=== PATIENT | female | born 1950 | race Caucasian/White ===

== ENCOUNTER → 2018-06-27 14:15 | Outpatient (CLI) | payer MEDICARE, OTHER, SELFPAY | PROVIDERS: Family Provider Internal Medicine; PCP Internal Medicine; Visit Provider Internal Medicine | DX: M81.0 Age-related osteoporosis without current pathological fracture (principal); Z78.0 Asymptomatic menopausal state; Z90.722 Acquired absence of ovaries, bilateral | CPT/HCPCS: 77080 ==

== ENCOUNTER → 2018-11-19 10:18 | Outpatient (CLI) | payer MEDICARE, OTHER, SELFPAY ==
--- NOTE | 2018-11-19 | DI.MG.S_ITS ---
BILATERAL DIGITAL SCREENING MAMMOGRAM 3D/2D WITH CAD: 11/19/2018 CLINICAL: Routine screening. Family history of breast cancer. Comparison is made to exams dated: 10/27/2015 mammogram, 04/14/2013 mammogram - [facility], and 03/04/2010 mammogram - [facility]. The tissue of both breasts is heterogeneously dense. This may lower the sensitivity of mammography. Current study was also evaluated with a Computer Aided Detection (CAD) system. There is a mole marker on the left breast. No significant masses, calcifications, or other findings are seen in either breast. There has been no significant interval change. IMPRESSION: NEGATIVE There is no mammographic evidence of malignancy. A 1 year screening mammogram is recommended. This exam was interpreted at Station ID: [id number]. NOTE: For mammograms, a report in lay terms will be sent to the patient. Approximately 15% of breast malignancies will not be visualized mammographically. In the management of a palpable breast mass, a negative mammogram must not discourage biopsy of a clinically suspicious lesion. Electronically Signed By: Ankur serra/yuliet:11/19/2018 19:10:49 letter sent: Normal Exam ACR BI-RADS Category 1: Negative [id number]
== END ==
PROVIDERS: Family Provider Internal Medicine; PCP Internal Medicine; Visit Provider Internal Medicine
DX: Z12.31 Encounter for screening mammogram for malignant neoplasm of breast (principal); Z80.3 Family history of malignant neoplasm of breast
CPT/HCPCS: 77063; 77067

== ENCOUNTER → 2020-06-15 15:45 | Outpatient (CLI) | payer MEDICARE, OTHER, SELFPAY ==
--- NOTE | 2020-06-15 15:46 | DI.RAD.S_ITS ---
PROCEDURE: XR KNEE RT 3V INDICATIONS: RIGHT knee pain/swelling TECHNIQUE: 3 views of the knee were acquired. COMPARISON: [facility], , KNEE 3V LEFT, 09/15/2015, 14:53. FINDINGS: Bones: No fractures or dislocations. No suspicious bony lesions. Note is made of a moderate degree of interspace height reduction at the medial and lateral compartments and near severe degenerative change at the lateral facet of the patellofemoral joint on the patellar sunrise view. No trauma found, no effusion or loose body seen. Soft tissues: No joint effusion. No suspicious soft tissue calcifications. IMPRESSION: Overall there is moderately severe degenerative knee joint osteoarthritis involving all 3 compartments and most pronounced at the lateral facet of the patellofemoral joint. Dictated by: Deion Bergman M.D. on 06/15/2020 at 17:04 Approved by: Deion Bergman M.D. on 06/15/2020 at 17:05
== END ==
PROVIDERS: Family Provider Internal Medicine; PCP Family Medicine; Referring Provider Registered Nurse Diabetes Educator; Visit Provider Registered Nurse Diabetes Educator
DX: M25.561 Pain in right knee (principal); M17.11 Unilateral primary osteoarthritis, right knee
CPT/HCPCS: 73562

== ENCOUNTER 2020-09-16 13:45 | Outpatient (RCR) | payer MEDICARE, OTHER, SELFPAY ==
--- NOTE | 2020-08-24 13:56 | PT.OIE ---
Current Diagnoses Bilateral primary osteoarthritis of knee (08/24/20) Other specified joint disorders, unspecified knee (08/24/20) Past Medical History (Last Updated 06/15/20 @ 18:13 by ROSAS Briones) Cervical spine disease (~1994) Chickenpox (~1957) Chronic neck and back pain (~2003) Colon polyps (~2017) Fibroids (~1991) Foot pain (~2007) Hemorrhoids (~2017) Knee osteoarthritis Measles (~1958) Mumps (~1959) Optic disc cupping (~1992) Osteopenia (~2007) Osteoporosis Osteoporosis (~2015) Seasonal allergies Venous insufficiency (~2013) Past Surgical History (Last Reviewed 06/15/20 @ 18:10 by ROSAS Briones) Anesthesia History of appendectomy (~1963) History of section (~1980) History of section (~1988) History of hysterectomy (~1992) History of sinus surgery (~1990) History of surgical fusion joint (~2009) Visit Care Team Role Provider Type ROSAS Turner Family Provider Advanced Swing Frame 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 Operator Primary Care Provider Specialty: [facility] Practice Address: [address] [place] [address], [facility] Email: [email or web address] Attending Provider Physician Referring Provider Specialty: Orthopedic Surgery Address: [address] [place] [address], [id number] Email: [email or web address] Physical Therapy Initial Evaluation PT-OP-A Visit Information Start: 08/24/20 08:09 Freq: Status: Active Protocol: Document 08/24/20 13:56 SAK (Rec: 08/24/20 14:51 SAK [id number]) Out-Patient Physical Therapy Visit Information Visit Information Visit Type Initial Evaluation PT-OP-B Current Condition Start: 08/24/20 08:09 Freq: Status: Active Protocol: Document 08/24/20 13:56 SAK (Rec: 08/24/20 14:51 SAK [id number]) Current Condition History of Current Condition Onset Date 2 months Current Complaints bilateral knee pain History of Current Condition Reports 2 months ago knee pain worsened and remains function -limiting. Reports history of left knee would come out of joint, was able to thunk it back into place. States she would always baby her left knee. Went to doctor Dhara 2 months ago due to right knee popping a couple months ago while using it to move something out of the way in her garage. Reports she experienced excrutiating pain. Some better now, but wants to have PT to improve her strength safely. History of being hypermobile. Wants to avoid surgery, or at least get stronger to be able to recover more easily if has surgery. Minimal use of heat or ice. Uses topical ointment (Diflocen) which is helpful at times. Activity level low. Wears bilateral custom orthotics. Also wears bilateral compression stockings due to venous insufficiency 30-40 mm Hg. No numbness or tingling in LE's. Has been doing some exercises but concerned she may not be doing correctly. Prior Treatments and Tests x-rays: severe OA. Got 3 injections bilateral knees, last 1 1/2 wks ago. 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 Current Functional Impairments (Reported) Functional Limitations- ADL's some painful Functional Limitations- Mobility/Gait painful especially on uneven groiund Functional Limitations- Recreation/ unable to hike or garden Hobbies PT-OP-C Subjective Start: 08/24/20 08:09 Freq: Status: Active Protocol: Document 08/24/20 13:56 [facility] (Rec: 08/25/20 16:45 [facility] [id number]) Patient Questionnaires Lower Extremity Functional Scale LEFS Score 74 OP-PT Pain Assessment Location knees Pain Location Details medial knees tavares right greater than left Intensity 3 Scale Used Numeric (0 - 10) Description Aching,Tender,Tightness Frequency Frequent Pain Aggravating Factors Activity,Walking,Stair Climbing Pain Alleviating Factors Inactivity PT-OP-F Manual Assessment Start: 08/24/20 08:09 Freq: Status: Active Protocol: Document 08/24/20 13:56 [facility] (Rec: 08/25/20 16:45 [facility] [id number]) Manual Assessments Other Manual Assessments Other Manual Assessments TTP medial joint line bilateral knees. Right patella positioned laterally PT-OP-G Mobility & Gait Start: 08/24/20 08:09 Freq: Status: Active Protocol: Document 08/24/20 13:56 [facility] (Rec: 08/25/20 16:45 [facility] [id number]) OP Gait Assessment Gait Gait Assistance Required: Independent Able to Maintain Weight Bearing Status Yes During Gait Assistive Devices Assistive Device None Gait Deviations General Gait Pattern Decreased Stride Length, Decreased Feet Clearance Stair Climbing Evaluation Evaluation Level of Assist On Stairs Independent Devices Stair Climbing Assistive Devices Left Railing,Right Railing Technique/Endurance Stair Climbing Technique Step Over Step Comments Stair Climbing Comments painful PT-OP-H Neuro Start: 08/24/20 08:09 Freq: Status: Active Protocol: Document 08/24/20 13:56 [facility] (Rec: 08/25/20 16:45 [facility] [id number]) Sensation Evaluation Gross Sensation Gross Sensation WNL PT-OP-J Posture/Palpation/Skin Start: 08/24/20 08:09 Freq: Status: Active Protocol: Document 08/24/20 13:56 [facility] (Rec: 08/25/20 16:45 [facility] [id number]) Posture Evaluation Position Standing Knee Posture (R) Excess Flexion Patellar Posture (R) Laterally Tilted Foot Arch (L) Low Arch,(R) Low Arch Palpation Assessment Location bilateral knees Palpation Location medial joint line Palpation Findings Tenderness Skin Assessment Other Assessments Skin Assessment Comments patient wears bilateral knee high compression stockings due to venous insufficiency PT-OP-K Range of Motion Start: 08/24/20 08:09 Freq: Status: Active Protocol: Document 08/24/20 13:56 [facility] (Rec: 08/25/20 16:45 [facility] [id number]) Hip Goniometric Range of Motion Hip Active Hip ROM WFL Yes Comments tavares Knee Goniometric Range of Motion Knee Right Knee ROM WFL No Patient Position Sitting Extension Active (degrees) 6 Extension Passive (degrees) 0 Left Knee ROM WFL Yes Knee ROM Limitations Knee ROM Limitations Soft Tissue Tightness, Contracture,Swelling Ankle and Foot Goniometric Range of Motion Ankle and Foot tavares Ankle/Foot ROM WFL Yes PT-OP-M Strength Start: 08/24/20 08:09 Freq: Status: Active Protocol: Document 08/24/20 13:56 [facility] (Rec: 08/25/20 16:45 [facility] [id number]) Hip Strength Hip Manual Muscle Testing tavares Flexion (L2) 4 Good Extension (S1) 4 Good Abduction 4 Good Adduction 4+ Good+ External Rotation 4- Good- Internal Rotation 4 Good Knee Strength Knee Manual Muscle Testing tavares Flexion (S2) 4 Good Extension (L3) 4 Good Ankle/Foot Strength Ankle and Foot Manual Muscle Testing tavares Dorsiflexion (L4) 5 Normal Plantarflexion (S1) 5 Normal PT-OP-Q Treatments Start: 08/24/20 08:09 Freq: Status: Active Protocol: Document 08/24/20 13:56 [facility] (Rec: 08/25/20 16:45 [facility] [id number]) Manual Therapy Treatment Taping left knee Treatment Focus space correction for pain management. Comments 1 I strip right knee Treatment Focus facilitate patellar medial glide, knee support Type of Tape Kinesio Tape Comments 3 Y strips Self-Care/Home Management Treatment Education Patient Education Body Mechanics,Home Exercise Program,Pain Management PT-OP-R Modalities Start: 08/24/20 08:09 Freq: Status: Active Protocol: Document 08/24/20 13:56 [facility] (Rec: 08/25/20 16:45 [facility] [id number]) Hot Pack/Cold Pack Treatment ice pack Location right knee Patient Position Hooklying PT-OP-T Assessment and Plan Start: 08/24/20 08:09 Freq: Status: Active Protocol: Document 08/24/20 13:56 [facility] (Rec: 08/25/20 16:45 [facility] [id number]) Physical Therapy Assessment Rehab Potential Rehabilitation Potential Good Evaluation Complexity Number of Personal Factors/Comorbidities 1-2 Number of Body Systems Impaired 3 Clinical Presentation at Evaluation Evolving Impairments Impairments Activity Tolerance,Pain, Strength Goals 3 Impairment bilateral LE weakness in hips and knees Short Term Goal (STG) Patient to be independent and compliant with HEP for LE strengthening STG Duration 09/24/20 Drop Wire Aligner Goal (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 2 Impairment Lower extremity functional scale (LEFS) score 74% Detention Goal (LTG) Improve LEFS to 95% as measure of improved LE function LTG Duration 10/24/20 1 Impairment pain bilateral knees right greater than left 3/10 Short Term Goal (STG) Decrease pain to no greater than 1/10 with gait on level surfaces and stairs STG Duration 09/24/20 Drop Wire Aligner Goal (LTG) Decrease pain to no greater than 1/10 with usual activities of gardening and hiking LTG Duration 10/24/20 Assessment Summary Assessment Patient present with function- limiting pain bilateral knees right greater than left with signs and symptoms consistent with arthritis. Additionally has dysfunction in patellar glide right knee with excessive lateral glide. Feel she would benefit from PT for improved LE biomechanics, ther ex for strengthening and pain management, soft tissue mobilization and modalities as indicated for pain management . Physical Therapy Plan Frequency and Duration Frequency of Treatment 2x/Week Duration of Treatment 8 wks Plan of Care Start Date 08/24/20 Plan of Care End Date 10/24/20 Therapeutic Interventions Therapeutic Interventions Gait Training,Home Exercise Program,Manual Therapy, Neuromuscular Re-education, Patient/Caregiver Education, Self-Care/Home Management,Soft Tissue Mobilization,Taping, Therapeutic Activities, Therapeutic Exercises Modalities Cold Pack/Ice Massage,Electric Stimulation,Hot Packs Next Visit Focus/Plan Next Note Type Treatment Note Next Visit Plan Evaluate response to kinesiotape. Review HEP, evaluate sit to stand performance, alignment of LE's with usual activities. Progress ther ex for strengthening.
--- NOTE | 2020-08-24 13:56 | PT.OPPOC ---
Physical, Occupational & Speech Therapy At [facility] Current Diagnoses Bilateral primary osteoarthritis of knee (08/24/20) Other specified joint disorders, unspecified knee (08/24/20) Visit Care Team Role Provider Type ROSAS Turner Family Provider Advanced Application Packager Primary Care Provider Specialty: Family Practice Address: [address] [place] [address], [facility] [place], [address] Email: [email or web address] Attending Provider Physician Referring Provider Specialty: Orthopedic Surgery Address: [address] [place] [address], [address] Email: [email or web address] Plan Of Care PT-OP-T Assessment and Plan Start: 08/24/20 08:09 Freq: Status: Active Protocol: Document 08/24/20 13:56 SAK (Rec: 08/25/20 16:45 [facility] [id number]) Physical Therapy Assessment Rehab Potential Rehabilitation Potential Good Evaluation Complexity Number of Personal Factors/Comorbidities 1-2 Number of Body Systems Impaired 3 Clinical Presentation at Evaluation Evolving Impairments Impairments Activity Tolerance,Pain, Strength Goals 3 Impairment bilateral LE weakness in hips and knees Short Term Goal (STG) Patient to be independent and compliant with HEP for LE strengthening STG Duration 09/24/20 Detention Goal (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 2 Impairment Lower extremity functional scale (LEFS) score 74% Professor Of Historical Theology Goal (LTG) Improve LEFS to 95% as measure of improved LE function LTG Duration 10/24/20 1 Impairment pain bilateral knees right greater than left 3/10 Short Term Goal (STG) Decrease pain to no greater than 1/10 with gait on level surfaces and stairs STG Duration 09/24/20 Professor Of Historical Theology Goal (LTG) Decrease pain to no greater than 1/10 with usual activities of gardening and hiking LTG Duration 10/24/20 Assessment Summary Assessment Patient present with function- limiting pain bilateral knees right greater than left with signs and symptoms consistent with arthritis. Additionally has dysfunction in patellar glide right knee with excessive lateral glide. Feel she would benefit from PT for improved LE biomechanics, ther ex for strengthening and pain management, soft tissue mobilization and modalities as indicated for pain management . Physical Therapy Plan Frequency and Duration Frequency of Treatment 2x/Week Duration of Treatment 8 wks Plan of Care Start Date 08/24/20 Plan of Care End Date 10/24/20 Therapeutic Interventions Therapeutic Interventions Gait Training,Home Exercise Program,Manual Therapy, Neuromuscular Re-education, Patient/Caregiver Education, Self-Care/Home Management,Soft Tissue Mobilization,Taping, Therapeutic Activities, Therapeutic Exercises Modalities Cold Pack/Ice Massage,Electric Stimulation,Hot Packs Next Visit Focus/Plan Next Note Type Treatment Note Next Visit Plan Evaluate response to kinesiotape. Review HEP, evaluate sit to stand performance, alignment of LE's with usual activities. Progress ther ex for strengthening. Plan of Care Dates Plan of Care Start Date 08/24/20 Plan of Care End Date 10/24/20 Electronically Signed by: Ania Palacio, PT 08/25/20 [id number] Please Sign and Return: I have reviewed this Plan of Care and certify that the skilled therapy services above are required to meet the patient?s needs. Physician Signature Date Printed Name and Credentials Clinical Instructor Signature Printed Name and Credentials
--- NOTE | 2020-08-26 16:37 | PT.OTN ---
Current Diagnoses Bilateral primary osteoarthritis of knee (08/26/20) Other specified joint disorders, unspecified knee (08/26/20) Difficulty in walking, not elsewhere classified (08/26/20) Weakness (08/26/20) Physical Therapy Treatment Note PT-OP-A Visit Information Start: 08/24/20 08:09 Freq: Status: Active Protocol: Document 08/26/20 13:49 SAK (Rec: 08/26/20 14:35 SAK [id number]) Out-Patient Physical Therapy Visit Information Visit Information Visit Type Treatment Note Visit Start Time 13:45 Visit Stop Time 14:40 Total Visit Minutes 55 Visit Number 2 Evaluation Information Evaluation Date 08/24/20 Precautions Precautions venous insufficiency PT-OP-B Current Condition Start: 08/24/20 08:09 Freq: Status: Active Protocol: Document 08/24/20 13:56 SAK (Rec: 08/24/20 14:51 SAK [id number]) Current Condition History of Current Condition Onset Date 2 months Current Complaints bilateral knee pain History of Current Condition Reports 2 months ago knee pain worsened and remains function -limiting. Reports history of left knee would come out of joint, was able to thunk it back into place. States she would always baby her left knee. Went to doctor Dhara 2 months ago due to right knee popping a couple months ago while using it to move something out of the way in her garage. Reports she experienced excrutiating pain. Some better now, but wants to have PT to improve her strength safely. History of being hypermobile. Wants to avoid surgery, or at least get stronger to be able to recover more easily if has surgery. Minimal use of heat or ice. Uses topical ointment (Diflocen) which is helpful at times. Activity level low. Wears bilateral custom orthotics. Also wears bilateral compression stockings due to venous insufficiency 30-40 mm Hg. No numbness or tingling in LE's. Has been doing some exercises but concerned she may not be doing correctly. Prior Treatments and Tests x-rays: severe OA. Got 3 injections bilateral knees, last 1 1/2 wks ago. 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 Removed, no rash or skin trouble. PT-OP-F Manual Assessment Start: 08/24/20 08:09 Freq: Status: Active Protocol: Document 08/24/20 13:56 [facility] (Rec: 08/25/20 16:45 [facility] [id number]) Manual Assessments Other Manual Assessments Other Manual Assessments TTP medial joint line bilateral knees. Right patella positioned laterally PT-OP-G Mobility & Gait Start: 08/24/20 08:09 Freq: Status: Active Protocol: Document 08/24/20 13:56 [facility] (Rec: 08/25/20 16:45 [facility] [id number]) OP Gait Assessment Gait Gait Assistance Required: Independent Able to Maintain Weight Bearing Status Yes During Gait Assistive Devices Assistive Device None Gait Deviations General Gait Pattern Decreased Stride Length, Decreased Feet Clearance Stair Climbing Evaluation Evaluation Level of Assist On Stairs Independent Devices Stair Climbing Assistive Devices Left Railing,Right Railing Technique/Endurance Stair Climbing Technique Step Over Step Comments Stair Climbing Comments painful PT-OP-H Neuro Start: 08/24/20 08:09 Freq: Status: Active Protocol: Document 08/24/20 13:56 [facility] (Rec: 08/25/20 16:45 [facility] [id number]) Sensation Evaluation Gross Sensation Gross Sensation WNL PT-OP-J Posture/Palpation/Skin Start: 08/24/20 08:09 Freq: Status: Active Protocol: Document 08/24/20 13:56 [facility] (Rec: 08/25/20 16:45 [facility] [id number]) Posture Evaluation Position Standing Knee Posture (R) Excess Flexion Patellar Posture (R) Laterally Tilted Foot Arch (L) Low Arch,(R) Low Arch Palpation Assessment Location bilateral knees Palpation Location medial joint line Palpation Findings Tenderness Skin Assessment Other Assessments Skin Assessment Comments patient wears bilateral knee high compression stockings due to venous insufficiency PT-OP-K Range of Motion Start: 08/24/20 08:09 Freq: Status: Active Protocol: Document 08/24/20 13:56 [facility] (Rec: 08/25/20 16:45 [facility] [id number]) Hip Goniometric Range of Motion Hip Active Hip ROM WFL Yes Comments tavares Knee Goniometric Range of Motion Knee Right Knee ROM WFL No Patient Position Sitting Extension Active (degrees) 6 Extension Passive (degrees) 0 Left Knee ROM WFL Yes Knee ROM Limitations Knee ROM Limitations Soft Tissue Tightness, Contracture,Swelling Ankle and Foot Goniometric Range of Motion Ankle and Foot tavares Ankle/Foot ROM WFL Yes PT-OP-M Strength Start: 08/24/20 08:09 Freq: Status: Active Protocol: Document 08/24/20 13:56 [facility] (Rec: 08/25/20 16:45 [facility] [id number]) Hip Strength Hip Manual Muscle Testing tavares Flexion (L2) 4 Good Extension (S1) 4 Good Abduction 4 Good Adduction 4+ Good+ External Rotation 4- Good- Internal Rotation 4 Good Knee Strength Knee Manual Muscle Testing tavares Flexion (S2) 4 Good Extension (L3) 4 Good Ankle/Foot Strength Ankle and Foot Manual Muscle Testing tavares Dorsiflexion (L4) 5 Normal Plantarflexion (S1) 5 Normal PT-OP-Q Treatments Start: 08/24/20 08:09 Freq: Status: Active Protocol: Document 08/26/20 13:49 [facility] (Rec: 08/26/20 14:35 [facility] [id number]) Gym Equipment Shuttle Balance 1 Details chains red balance and weight shift f/b, bal side/side Therapeutic Exercises Supine Exercises bridge Reps/Minutes 10x SAQ Resistance 1# Reps/Minutes 10x SLR Reps/Minutes 10x Comments neutral and with ER Prone Exercises plank Reps/Minutes 1x 30 Comments per pt request to eval form; cues given with good pt understanding and eliu Standing Exercises squats Equipment Used chair, mirror Reps/Minutes 10x Comments verbal and visual cues for LE alignment Manual Therapy Treatment Taping left knee Comments poor tolerance; not done right knee Comments Poor tolerance Self-Care/Home Management Treatment Education Patient Education Home Exercise Program,Pain Management PT-OP-R Modalities Start: 08/24/20 08:09 Freq: Status: Active Protocol: Document 08/26/20 16:36 [facility] (Rec: 08/26/20 16:36 [facility] [id number]) Hot Pack/Cold Pack Treatment ice pack Location bilateral knees Patient Position Hooklying Treatment Duration (minutes) 10 Patient Tolerance Good PT-OP-T Assessment and Plan Start: 08/24/20 08:09 Freq: Status: Active Protocol: Document 08/26/20 13:49 [facility] (Rec: 08/26/20 14:35 [facility] [id number]) Physical Therapy Assessment Goals 3 Impairment bilateral LE weakness in hips and knees Short Term Goal (STG) Patient to be independent and compliant with HEP for LE strengthening STG Duration 09/24/20 Equipment Oiler Goal (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 2 Impairment Lower extremity functional scale (LEFS) score 74% Equipment Oiler Goal (LTG) Improve LEFS to 95% as measure of improved LE function LTG Duration 10/24/20 1 Impairment pain bilateral knees right greater than left 3/10 Short Term Goal (STG) Decrease pain to no greater than 1/10 with gait on level surfaces and stairs STG Duration 09/24/20 Equipment Oiler Goal (LTG) Decrease pain to no greater than 1/10 with usual activities of gardening and hiking LTG Duration 10/24/20 Assessment Summary Assessment Poor tolerance to kinesiotape, squats irritating. Further discussion of importance of neutral alignment of LE's, strengthening of VMO for improved patellar tracking especially in light of poor response to kinesiotape. Physical Therapy Plan Frequency and Duration Frequency of Treatment 2x/Week Duration of Treatment 8 wks Plan of Care Start Date 08/24/20 Plan of Care End Date 10/24/20 Therapeutic Interventions Therapeutic Interventions Gait Training,Home Exercise Program,Manual Therapy, Neuromuscular Re-education, Patient/Caregiver Education, Self-Care/Home Management,Soft Tissue Mobilization,Taping, Therapeutic Activities, Therapeutic Exercises Modalities Cold Pack/Ice Massage,Electric Stimulation,Hot Packs Next Visit Focus/Plan Next Note Type Treatment Note Next Visit Plan Review updated HEP, continue strengthening, add functional closed chain as tolerated.
--- NOTE | 2020-08-30 14:03 | PT-OP ANOTE ---
DNS for PT appointment
--- NOTE | 2020-09-02 15:59 | PT.OTN ---
Current Diagnoses Bilateral primary osteoarthritis of knee (09/02/20) Other specified joint disorders, unspecified knee (09/02/20) Difficulty in walking, not elsewhere classified (09/02/20) Weakness (09/02/20) Physical Therapy Treatment Note PT-OP-A Visit Information Start: 08/24/20 08:09 Freq: Status: Active Protocol: Document 09/02/20 13:01 SAK (Rec: 09/02/20 13:49 SAK [id number]) Out-Patient Physical Therapy Visit Information Visit Information Visit Type Treatment Note Visit Start Time 13:00 Visit Stop Time 13:56 Total Visit Minutes 56 Visit Number 3 Evaluation Information Evaluation Date 08/24/20 Precautions Precautions venous insufficiency PT-OP-B Current Condition Start: 08/24/20 08:09 Freq: Status: Active Protocol: Document 08/24/20 13:56 SAK (Rec: 08/24/20 14:51 SAK [id number]) Current Condition History of Current Condition Onset Date 2 months Current Complaints bilateral knee pain History of Current Condition Reports 2 months ago knee pain worsened and remains function -limiting. Reports history of left knee would come out of joint, was able to thunk it back into place. States she would always baby her left knee. Went to doctor Dhara 2 months ago due to right knee popping a couple months ago while using it to move something out of the way in her garage. Reports she experienced excrutiating pain. Some better now, but wants to have PT to improve her strength safely. History of being hypermobile. Wants to avoid surgery, or at least get stronger to be able to recover more easily if has surgery. Minimal use of heat or ice. Uses topical ointment (Diflocen) which is helpful at times. Activity level low. Wears bilateral custom orthotics. Also wears bilateral compression stockings due to venous insufficiency 30-40 mm Hg. No numbness or tingling in LE's. Has been doing some exercises but concerned she may not be doing correctly. Prior Treatments and Tests x-rays: severe OA. Got 3 injections bilateral knees, last 1 1/2 wks ago. 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 Current Functional Impairments (Reported) Functional Limitations- ADL's some painful Functional Limitations- Mobility/Gait painful especially on uneven groiund Functional Limitations- Recreation/ unable to hike or garden Hobbies PT-OP-C Subjective Start: 08/24/20 08:09 Freq: Status: Active Protocol: Document 09/02/20 13:01 [facility] (Rec: 09/02/20 13:49 [facility] [id number]) OP-PT Subjective Patient Comments Patient Comments Requests no shuttle balance due to tweaking her back bending over to side to 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 Compliant to HEP, noting some improvement. Patient Reported Progress Improving PT-OP-F Manual Assessment Start: 08/24/20 08:09 Freq: Status: Active Protocol: Document 08/24/20 13:56 [facility] (Rec: 08/25/20 16:45 [facility] [id number]) Manual Assessments Other Manual Assessments Other Manual Assessments TTP medial joint line bilateral knees. Right patella positioned laterally PT-OP-G Mobility & Gait Start: 08/24/20 08:09 Freq: Status: Active Protocol: Document 08/24/20 13:56 [facility] (Rec: 08/25/20 16:45 [facility] [id number]) OP Gait Assessment Gait Gait Assistance Required: Independent Able to Maintain Weight Bearing Status Yes During Gait Assistive Devices Assistive Device None Gait Deviations General Gait Pattern Decreased Stride Length, Decreased Feet Clearance Stair Climbing Evaluation Evaluation Level of Assist On Stairs Independent Devices Stair Climbing Assistive Devices Left Railing,Right Railing Technique/Endurance Stair Climbing Technique Step Over Step Comments Stair Climbing Comments painful PT-OP-H Neuro Start: 08/24/20 08:09 Freq: Status: Active Protocol: Document 08/24/20 13:56 [facility] (Rec: 08/25/20 16:45 [facility] [id number]) Sensation Evaluation Gross Sensation Gross Sensation WNL PT-OP-J Posture/Palpation/Skin Start: 08/24/20 08:09 Freq: Status: Active Protocol: Document 08/24/20 13:56 [facility] (Rec: 08/25/20 16:45 [facility] [id number]) Posture Evaluation Position Standing Knee Posture (R) Excess Flexion Patellar Posture (R) Laterally Tilted Foot Arch (L) Low Arch,(R) Low Arch Palpation Assessment Location bilateral knees Palpation Location medial joint line Palpation Findings Tenderness Skin Assessment Other Assessments Skin Assessment Comments patient wears bilateral knee high compression stockings due to venous insufficiency PT-OP-K Range of Motion Start: 08/24/20 08:09 Freq: Status: Active Protocol: Document 08/24/20 13:56 [facility] (Rec: 08/25/20 16:45 [facility] [id number]) Hip Goniometric Range of Motion Hip Active Hip ROM WFL Yes Comments tavares Knee Goniometric Range of Motion Knee Right Knee ROM WFL No Patient Position Sitting Extension Active (degrees) 6 Extension Passive (degrees) 0 Left Knee ROM WFL Yes Knee ROM Limitations Knee ROM Limitations Soft Tissue Tightness, Contracture,Swelling Ankle and Foot Goniometric Range of Motion Ankle and Foot tavares Ankle/Foot ROM WFL Yes PT-OP-M Strength Start: 08/24/20 08:09 Freq: Status: Active Protocol: Document 08/24/20 13:56 [facility] (Rec: 08/25/20 16:45 [facility] [id number]) Hip Strength Hip Manual Muscle Testing tavares Flexion (L2) 4 Good Extension (S1) 4 Good Abduction 4 Good Adduction 4+ Good+ External Rotation 4- Good- Internal Rotation 4 Good Knee Strength Knee Manual Muscle Testing tavares Flexion (S2) 4 Good Extension (L3) 4 Good Ankle/Foot Strength Ankle and Foot Manual Muscle Testing tavares Dorsiflexion (L4) 5 Normal Plantarflexion (S1) 5 Normal PT-OP-Q Treatments Start: 08/24/20 08:09 Freq: Status: Active Protocol: Document 09/02/20 13:01 [facility] (Rec: 09/02/20 13:49 [facility] [id number]) Cardio Equipment Recumbent Stepper (Sci-Fit) Duration (Minutes) 8 Resistance 3 Other emphasis on neutral LE alignment, symmetry Gym Equipment Shuttle Balance 1 Comments not done today per patient request Therapeutic Exercises Supine Exercises bridge Reps/Minutes 10x Comments including prep for unil LE lift SAQ Reps/Minutes 10x Comments with LE ER SLR Reps/Minutes 10x Comments neutral and with ER Standing Exercises gluteal sets Standing Exercise Name tavares and unil Reps/Minutes 5x step ups Standing Exercise Name forward and lateral Resistance mirror for visual feedback Reps/Minutes 10x ea tavares Comments emphasis on gluteal activation , LE alignment squats Equipment Used chair, mirror Reps/Minutes 10x Comments verbal and visual cues for LE alignment Gait Training Gait Activity 1 Description emphasis on gluteal activation with stance Device Used none Level of Assistance verbal and manual cues Surface level, firm Distance/Duration 75' Neuro Re-Education Treatment Balance Activities SLS Surface firm Reps/Duration 3x each LE Comments mirror for visual feedback Self-Care/Home Management Treatment Education Patient Education Home Exercise Program PT-OP-R Modalities Start: 08/24/20 08:09 Freq: Status: Active Protocol: Document 09/02/20 13:01 [facility] (Rec: 09/02/20 15:59 [facility] [id number]) Hot Pack/Cold Pack Treatment ice pack Location bilateral knees Patient Position Hooklying Treatment Duration (minutes) 10 Patient Tolerance Good PT-OP-T Assessment and Plan Start: 08/24/20 08:09 Freq: Status: Active Protocol: Document 09/02/20 13:01 [facility] (Rec: 09/02/20 13:49 [facility] [id number]) Physical Therapy Assessment Goals 3 Impairment bilateral LE weakness in hips and knees Short Term Goal (STG) Patient to be independent and compliant with HEP for LE strengthening STG Duration 09/24/20 Half-Way Goal (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 2 Impairment Lower extremity functional scale (LEFS) score 74% Half-Way Goal (LTG) Improve LEFS to 95% as measure of improved LE function LTG Duration 10/24/20 1 Impairment pain bilateral knees right greater than left 3/10 Short Term Goal (STG) Decrease pain to no greater than 1/10 with gait on level surfaces and stairs STG Duration 09/24/20 Environmental Engineer Scientist Goal (LTG) Decrease pain to no greater than 1/10 with usual activities of gardening and hiking LTG Duration 10/24/20 Progress Towards Goals Progress Towards Goals Progressing Toward Goals Assessment Summary Assessment Patient requires cues for neutral LE alignment with ther ex, some corrections to HEP, but demonstrated good understanding. Moderate verbal and manual cues for gluteal activation with step- ups and gait Physical Therapy Plan Frequency and Duration Frequency of Treatment 2x/Week Duration of Treatment 8 wks Plan of Care Start Date 08/24/20 Plan of Care End Date 10/24/20 Therapeutic Interventions Therapeutic Interventions Gait Training,Home Exercise Program,Manual Therapy, Neuromuscular Re-education, Patient/Caregiver Education, Self-Care/Home Management,Soft Tissue Mobilization,Taping, Therapeutic Activities, Therapeutic Exercises Modalities Cold Pack/Ice Massage,Electric Stimulation,Hot Packs Next Visit Focus/Plan Next Note Type Treatment Note Next Visit Plan Shuttle leg press double and single leg, lunges if tolerated. Patellar mobilizations medially
--- NOTE | 2020-09-14 14:09 | PT.OTN ---
Current Diagnoses Bilateral primary osteoarthritis of knee (09/14/20) Other specified joint disorders, unspecified knee (09/14/20) Difficulty in walking, not elsewhere classified (09/14/20) Weakness (09/14/20) Physical Therapy Treatment Note PT-OP-A Visit Information Start: 08/24/20 08:09 Freq: Status: Active Protocol: Document 09/14/20 14:00 SAK (Rec: 09/14/20 14:09 SAK [id number]) Out-Patient Physical Therapy Visit Information Visit Information Visit Type Treatment Note Visit Start Time 13:02 Visit Stop Time 14:00 Total Visit Minutes 58 Visit Number 4 Evaluation Information Evaluation Date 08/24/20 Precautions Precautions venous insufficiency PT-OP-B Current Condition Start: 08/24/20 08:09 Freq: Status: Active Protocol: Document 08/24/20 13:56 SAK (Rec: 08/24/20 14:51 SAK [id number]) Current Condition History of Current Condition Onset Date 2 months Current Complaints bilateral knee pain History of Current Condition Reports 2 months ago knee pain worsened and remains function -limiting. Reports history of left knee would come out of joint, was able to thunk it back into place. States she would always baby her left knee. Went to doctor Dhara 2 months ago due to right knee popping a couple months ago while using it to move something out of the way in her garage. Reports she experienced excrutiating pain. Some better now, but wants to have PT to improve her strength safely. History of being hypermobile. Wants to avoid surgery, or at least get stronger to be able to recover more easily if has surgery. Minimal use of heat or ice. Uses topical ointment (Diflocen) which is helpful at times. Activity level low. Wears bilateral custom orthotics. Also wears bilateral compression stockings due to venous insufficiency 30-40 mm Hg. No numbness or tingling in LE's. Has been doing some exercises but concerned she may not be doing correctly. Prior Treatments and Tests x-rays: severe OA. Got 3 injections bilateral knees, last 1 1/2 wks ago. 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 PT-OP-F Manual Assessment Start: 08/24/20 08:09 Freq: Status: Active Protocol: Document 08/24/20 13:56 [facility] (Rec: 08/25/20 16:45 [facility] [id number]) Manual Assessments Other Manual Assessments Other Manual Assessments TTP medial joint line bilateral knees. Right patella positioned laterally PT-OP-G Mobility & Gait Start: 08/24/20 08:09 Freq: Status: Active Protocol: Document 08/24/20 13:56 [facility] (Rec: 08/25/20 16:45 [facility] [id number]) OP Gait Assessment Gait Gait Assistance Required: Independent Able to Maintain Weight Bearing Status Yes During Gait Assistive Devices Assistive Device None Gait Deviations General Gait Pattern Decreased Stride Length, Decreased Feet Clearance Stair Climbing Evaluation Evaluation Level of Assist On Stairs Independent Devices Stair Climbing Assistive Devices Left Railing,Right Railing Technique/Endurance Stair Climbing Technique Step Over Step Comments Stair Climbing Comments painful PT-OP-H Neuro Start: 08/24/20 08:09 Freq: Status: Active Protocol: Document 08/24/20 13:56 [facility] (Rec: 08/25/20 16:45 [facility] [id number]) Sensation Evaluation Gross Sensation Gross Sensation WNL PT-OP-J Posture/Palpation/Skin Start: 08/24/20 08:09 Freq: Status: Active Protocol: Document 08/24/20 13:56 [facility] (Rec: 08/25/20 16:45 [facility] [id number]) Posture Evaluation Position Standing Knee Posture (R) Excess Flexion Patellar Posture (R) Laterally Tilted Foot Arch (L) Low Arch,(R) Low Arch Palpation Assessment Location bilateral knees Palpation Location medial joint line Palpation Findings Tenderness Skin Assessment Other Assessments Skin Assessment Comments patient wears bilateral knee high compression stockings due to venous insufficiency PT-OP-K Range of Motion Start: 08/24/20 08:09 Freq: Status: Active Protocol: Document 08/24/20 13:56 [facility] (Rec: 08/25/20 16:45 [facility] [id number]) Hip Goniometric Range of Motion Hip Active Hip ROM WFL Yes Comments tavares Knee Goniometric Range of Motion Knee Right Knee ROM WFL No Patient Position Sitting Extension Active (degrees) 6 Extension Passive (degrees) 0 Left Knee ROM WFL Yes Knee ROM Limitations Knee ROM Limitations Soft Tissue Tightness, Contracture,Swelling Ankle and Foot Goniometric Range of Motion Ankle and Foot tavares Ankle/Foot ROM WFL Yes PT-OP-M Strength Start: 08/24/20 08:09 Freq: Status: Active Protocol: Document 08/24/20 13:56 [facility] (Rec: 08/25/20 16:45 [facility] [id number]) Hip Strength Hip Manual Muscle Testing tavares Flexion (L2) 4 Good Extension (S1) 4 Good Abduction 4 Good Adduction 4+ Good+ External Rotation 4- Good- Internal Rotation 4 Good Knee Strength Knee Manual Muscle Testing tavares Flexion (S2) 4 Good Extension (L3) 4 Good Ankle/Foot Strength Ankle and Foot Manual Muscle Testing tavares Dorsiflexion (L4) 5 Normal Plantarflexion (S1) 5 Normal PT-OP-Q Treatments Start: 08/24/20 08:09 Freq: Status: Active Protocol: Document 09/14/20 14:00 [facility] (Rec: 09/14/20 14:09 [facility] [id number]) Cardio Equipment Bicycle (Upright) Duration (Minutes) 6 Resistance 4 Seat Position 0 Other cues for hamstring engagement, neutral LE's Gym Equipment Shuttle Recovery Unilateral Squats Resistance 25 Shuttle Recovery Platform Stable Reps/Time 10x2 Bilateral Squats Resistance 50 Shuttle Recovery Platform Stable Reps/Time 10x2 Shuttle Balance 1 Details chains red balance and weight shift f/b, bal side/side Therapeutic Exercises Supine Exercises SAQ Reps/Minutes 10x Comments with LE ER Manual Therapy Treatment Joint Mobilizations patellofemoral Joint right Direction medial glide Grade II Body Position Supine Reps/Duration 2 min Neuro Re-Education Treatment Balance Activities SLS Surface firm Reps/Duration 3x each LE Comments mirror for visual feedback PT-OP-R Modalities Start: 08/24/20 08:09 Freq: Status: Active Protocol: Document 09/14/20 14:00 [facility] (Rec: 09/14/20 14:09 [facility] [id number]) Hot Pack/Cold Pack Treatment ice pack Location bilateral knees Patient Position Hooklying Treatment Duration (minutes) 10 Patient Tolerance Good PT-OP-T Assessment and Plan Start: 08/24/20 08:09 Freq: Status: Active Protocol: Document 09/14/20 14:00 [facility] (Rec: 09/14/20 14:09 [facility] [id number]) Physical Therapy Assessment Goals 3 Impairment bilateral LE weakness in hips and knees Short Term Goal (STG) Patient to be independent and compliant with HEP for LE strengthening STG Duration 09/24/20 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 2 Impairment Lower extremity functional scale (LEFS) score 74% Prison Goal (LTG) Improve LEFS to 95% as measure of improved LE function LTG Duration 10/24/20 1 Impairment pain bilateral knees right greater than left 3/10 Short Term Goal (STG) Decrease pain to no greater than 1/10 with gait on level surfaces and stairs STG Duration 09/24/20 Prison Goal (LTG) Decrease pain to no greater than 1/10 with usual activities of gardening and hiking LTG Duration 10/24/20 Assessment Summary Assessment Treatment modified, eliminated step-ups for now, added hamstring curl and SAQ with ER to HEP; patient demonstrated good understanding. Moderate cues for alignment and technique with ther ex. Shuttle leg press more difficult with right LE with patient reporting clicking which decreased with manual medial glide by PT during extension phase. Physical Therapy Plan Frequency and Duration Frequency of Treatment 2x/Week Duration of Treatment 8 wks Plan of Care Start Date 08/24/20 Plan of Care End Date 10/24/20 Therapeutic Interventions Therapeutic Interventions Gait Training,Home Exercise Program,Manual Therapy, Neuromuscular Re-education, Patient/Caregiver Education, Self-Care/Home Management,Soft Tissue Mobilization,Taping, Therapeutic Activities, Therapeutic Exercises Modalities Cold Pack/Ice Massage,Electric Stimulation,Hot Packs Next Visit Focus/Plan Next Note Type Treatment Note Next Visit Plan Evaluate response to today's treatment, progress and modify ther ex as tolerated.
--- NOTE | 2020-09-16 14:59 | PT.OTN ---
Current Diagnoses Bilateral primary osteoarthritis of knee (09/16/20) Other specified joint disorders, unspecified knee (09/16/20) Difficulty in walking, not elsewhere classified (09/16/20) Weakness (09/16/20) Physical Therapy Treatment Note PT-OP-A Visit Information Start: 08/24/20 08:09 Freq: Status: Active Protocol: Document 09/16/20 13:45 SAK (Rec: 09/16/20 14:39 SAK [id number]) Out-Patient Physical Therapy Visit Information Visit Information Visit Type Treatment Note Visit Start Time 13:45 Visit Number 5 Evaluation Information Evaluation Date 08/24/20 Precautions Precautions venous insufficiency PT-OP-B Current Condition Start: 08/24/20 08:09 Freq: Status: Active Protocol: Document 08/24/20 13:56 SAK (Rec: 08/24/20 14:51 SAK [id number]) Current Condition History of Current Condition Onset Date 2 months Current Complaints bilateral knee pain History of Current Condition Reports 2 months ago knee pain worsened and remains function -limiting. Reports history of left knee would come out of joint, was able to thunk it back into place. States she would always baby her left knee. Went to doctor Dhara 2 months ago due to right knee popping a couple months ago while using it to move something out of the way in her garage. Reports she experienced excrutiating pain. Some better now, but wants to have PT to improve her strength safely. History of being hypermobile. Wants to avoid surgery, or at least get stronger to be able to recover more easily if has surgery. Minimal use of heat or ice. Uses topical ointment (Diflocen) which is helpful at times. Activity level low. Wears bilateral custom orthotics. Also wears bilateral compression stockings due to venous insufficiency 30-40 mm Hg. No numbness or tingling in LE's. Has been doing some exercises but concerned she may not be doing correctly. Prior Treatments and Tests x-rays: severe OA. Got 3 injections bilateral knees, last 1 1/2 wks ago. 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 Patient Reported Progress Improving PT-OP-F Manual Assessment Start: 08/24/20 08:09 Freq: Status: Active Protocol: Document 08/24/20 13:56 [facility] (Rec: 08/25/20 16:45 [facility] [id number]) Manual Assessments Other Manual Assessments Other Manual Assessments TTP medial joint line bilateral knees. Right patella positioned laterally PT-OP-G Mobility & Gait Start: 08/24/20 08:09 Freq: Status: Active Protocol: Document 08/24/20 13:56 [facility] (Rec: 08/25/20 16:45 [facility] [id number]) OP Gait Assessment Gait Gait Assistance Required: Independent Able to Maintain Weight Bearing Status Yes During Gait Assistive Devices Assistive Device None Gait Deviations General Gait Pattern Decreased Stride Length, Decreased Feet Clearance Stair Climbing Evaluation Evaluation Level of Assist On Stairs Independent Devices Stair Climbing Assistive Devices Left Railing,Right Railing Technique/Endurance Stair Climbing Technique Step Over Step Comments Stair Climbing Comments painful PT-OP-H Neuro Start: 08/24/20 08:09 Freq: Status: Active Protocol: Document 08/24/20 13:56 [facility] (Rec: 08/25/20 16:45 [facility] [id number]) Sensation Evaluation Gross Sensation Gross Sensation WNL PT-OP-J Posture/Palpation/Skin Start: 08/24/20 08:09 Freq: Status: Active Protocol: Document 08/24/20 13:56 [facility] (Rec: 08/25/20 16:45 [facility] [id number]) Posture Evaluation Position Standing Knee Posture (R) Excess Flexion Patellar Posture (R) Laterally Tilted Foot Arch (L) Low Arch,(R) Low Arch Palpation Assessment Location bilateral knees Palpation Location medial joint line Palpation Findings Tenderness Skin Assessment Other Assessments Skin Assessment Comments patient wears bilateral knee high compression stockings due to venous insufficiency PT-OP-K Range of Motion Start: 08/24/20 08:09 Freq: Status: Active Protocol: Document 08/24/20 13:56 [facility] (Rec: 08/25/20 16:45 [facility] [id number]) Hip Goniometric Range of Motion Hip Active Hip ROM WFL Yes Comments tavares Knee Goniometric Range of Motion Knee Right Knee ROM WFL No Patient Position Sitting Extension Active (degrees) 6 Extension Passive (degrees) 0 Left Knee ROM WFL Yes Knee ROM Limitations Knee ROM Limitations Soft Tissue Tightness, Contracture,Swelling Ankle and Foot Goniometric Range of Motion Ankle and Foot tavares Ankle/Foot ROM WFL Yes PT-OP-M Strength Start: 08/24/20 08:09 Freq: Status: Active Protocol: Document 08/24/20 13:56 [facility] (Rec: 08/25/20 16:45 [facility] [id number]) Hip Strength Hip Manual Muscle Testing tavares Flexion (L2) 4 Good Extension (S1) 4 Good Abduction 4 Good Adduction 4+ Good+ External Rotation 4- Good- Internal Rotation 4 Good Knee Strength Knee Manual Muscle Testing tavares Flexion (S2) 4 Good Extension (L3) 4 Good Ankle/Foot Strength Ankle and Foot Manual Muscle Testing tavares Dorsiflexion (L4) 5 Normal Plantarflexion (S1) 5 Normal PT-OP-Q Treatments Start: 08/24/20 08:09 Freq: Status: Active Protocol: Document 09/16/20 13:45 [facility] (Rec: 09/16/20 14:39 [facility] [id number]) Cardio Equipment Bicycle (Upright) Duration (Minutes) 8 Resistance 4-5 Seat Position 0 Other cues for hamstring engagement, neutral LE's Gym Equipment Shuttle Recovery Unilateral Squats Resistance 25 Shuttle Recovery Platform Stable Reps/Time 10x2 Bilateral Squats Resistance 50 Shuttle Recovery Platform Stable Reps/Time 10x2 Therapeutic Exercises Sidelying Exercises clamshell Reps/Minutes 10x Comments verbal and manual cues for alignment and technique hip abduction Side bilateral Reps/Minutes 10x Comments verbal and manual cues for alignment and technique Standing Exercises hamstring curl Reps/Minutes 10x SLS Reps/Minutes 10x Comments mirror BOSU lunge Equipment Used BOSU Reps/Minutes 10x2 Comments mirror Manual Therapy Treatment Joint Mobilizations patellofemoral Joint right Direction medial glide Grade II Body Position Supine Reps/Duration 2 min Comments improved patellar mobility today PT-OP-R Modalities Start: 08/24/20 08:09 Freq: Status: Active Protocol: Document 09/14/20 14:00 [facility] (Rec: 09/14/20 14:09 [facility] [id number]) Hot Pack/Cold Pack Treatment ice pack Location bilateral knees Patient Position Hooklying Treatment Duration (minutes) 10 Patient Tolerance Good PT-OP-T Assessment and Plan Start: 08/24/20 08:09 Freq: Status: Active Protocol: Document 09/16/20 13:45 [facility] (Rec: 09/16/20 14:39 [facility] [id number]) Physical Therapy Assessment Goals 3 Impairment bilateral LE weakness in hips and knees Short Term Goal (STG) Patient to be independent and compliant with HEP for LE strengthening STG Duration 09/24/20 Long-Term Goal (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 2 Impairment Lower extremity functional scale (LEFS) score 74% Long-Term Goal (LTG) Improve LEFS to 95% as measure of improved LE function LTG Duration 10/24/20 1 Impairment pain bilateral knees right greater than left 3/10 Short Term Goal (STG) Decrease pain to no greater than 1/10 with gait on level surfaces and stairs STG Duration 09/24/20 Sustainability Manager Goal (LTG) Decrease pain to no greater than 1/10 with usual activities of gardening and hiking LTG Duration 10/24/20 Progress Towards Goals Progress Towards Goals Progressing Toward Goals Assessment Summary Assessment Good progress, needs moderate cues for correct form with ther ex. Use of mirror with closed chain exercises helpful for patient feedback; to use at home; has tendency to have excess internal rotation right LE with ex bike, and hip drop with SLS. Physical Therapy Plan Frequency and Duration Frequency of Treatment 2x/Week Duration of Treatment 8 wks Plan of Care Start Date 08/24/20 Plan of Care End Date 10/24/20 Therapeutic Interventions Therapeutic Interventions Gait Training,Home Exercise Program,Manual Therapy, Neuromuscular Re-education, Patient/Caregiver Education, Self-Care/Home Management,Soft Tissue Mobilization,Taping, Therapeutic Activities, Therapeutic Exercises Modalities Cold Pack/Ice Massage,Electric Stimulation,Hot Packs Next Visit Focus/Plan Next Note Type Treatment Note
--- NOTE | 2020-12-07 12:55 | PT.OPDS ---
Current Diagnoses Bilateral primary osteoarthritis of knee (09/16/20) Other specified joint disorders, unspecified knee (09/16/20) Difficulty in walking, not elsewhere classified (09/16/20) Weakness (09/16/20) Visit Care Team Role Provider Type ROSAS Turner Family Provider Advanced Coding Team Lead Primary Care Provider Specialty: Family Practice Address: [address] [place] [address], [place], [address] Email: [email or web address] Jules MD Attending Provider Physician Referring Provider Specialty: Orthopedic Surgery Address: [address] [place] [address], [id number] Email: [email or web address] Visit Number Visit Number 5 Discharge Summary PT-OP-B Current Condition Start: 08/24/20 08:09 Freq: Status: Active Protocol: Document 08/24/20 13:56 [facility] (Rec: 08/24/20 14:51 [facility] [id number]) Current Condition History of Current Condition Onset Date 2 months Current Complaints bilateral knee pain History of Current Condition Reports 2 months ago knee pain worsened and remains function -limiting. Reports history of left knee would come out of joint, was able to thunk it back into place. States she would always baby her left knee. Went to doctor Dhara 2 months ago due to right knee popping a couple months ago while using it to move something out of the way in her garage. Reports she experienced excrutiating pain. Some better now, but wants to have PT to improve her strength safely. History of being hypermobile. Wants to avoid surgery, or at least get stronger to be able to recover more easily if has surgery. Minimal use of heat or ice. Uses topical ointment (Diflocen) which is helpful at times. Activity level low. Wears bilateral custom orthotics. Also wears bilateral compression stockings due to venous insufficiency 30-40 mm Hg. No numbness or tingling in LE's. Has been doing some exercises but concerned she may not be doing correctly. Prior Treatments and Tests x-rays: severe OA. Got 3 injections bilateral knees, last 1 1/2 wks ago. 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 Patient Reported Progress Improving PT-OP-F Manual Assessment Start: 08/24/20 08:09 Freq: Status: Active Protocol: Document 08/24/20 13:56 [facility] (Rec: 08/25/20 16:45 [facility] [id number]) Manual Assessments Other Manual Assessments Other Manual Assessments TTP medial joint line bilateral knees. Right patella positioned laterally PT-OP-G Mobility & Gait Start: 08/24/20 08:09 Freq: Status: Active Protocol: Document 08/24/20 13:56 [facility] (Rec: 08/25/20 16:45 [facility] [id number]) OP Gait Assessment Gait Gait Assistance Required: Independent Able to Maintain Weight Bearing Status Yes During Gait Assistive Devices Assistive Device None Gait Deviations General Gait Pattern Decreased Stride Length, Decreased Feet Clearance Stair Climbing Evaluation Evaluation Level of Assist On Stairs Independent Devices Stair Climbing Assistive Devices Left Railing,Right Railing Technique/Endurance Stair Climbing Technique Step Over Step Comments Stair Climbing Comments painful PT-OP-H Neuro Start: 08/24/20 08:09 Freq: Status: Active Protocol: Document 08/24/20 13:56 [facility]AK (Rec: 08/25/20 16:45 [facility]AK [id number]) Sensation Evaluation Gross Sensation Gross Sensation WNL PT-OP-J Posture/Palpation/Skin Start: 08/24/20 08:09 Freq: Status: Active Protocol: Document 08/24/20 13:56 [facility]AK (Rec: 08/25/20 16:45 [facility] [id number]) Posture Evaluation Position Standing Knee Posture (R) Excess Flexion Patellar Posture (R) Laterally Tilted Foot Arch (L) Low Arch,(R) Low Arch Palpation Assessment Location bilateral knees Palpation Location medial joint line Palpation Findings Tenderness Skin Assessment Other Assessments Skin Assessment Comments patient wears bilateral knee high compression stockings due to venous insufficiency PT-OP-K Range of Motion Start: 08/24/20 08:09 Freq: Status: Active Protocol: Document 08/24/20 13:56 [facility] (Rec: 08/25/20 16:45 [facility] [id number]) Hip Goniometric Range of Motion Hip Active Hip ROM WFL Yes Comments tavares Knee Goniometric Range of Motion Knee Right Knee ROM WFL No Patient Position Sitting Extension Active (degrees) 6 Extension Passive (degrees) 0 Left Knee ROM WFL Yes Knee ROM Limitations Knee ROM Limitations Soft Tissue Tightness, Contracture,Swelling Ankle and Foot Goniometric Range of Motion Ankle and Foot tavares Ankle/Foot ROM WFL Yes PT-OP-M Strength Start: 08/24/20 08:09 Freq: Status: Active Protocol: Document 08/24/20 13:56 [facility] (Rec: 08/25/20 16:45 [facility] [id number]) Hip Strength Hip Manual Muscle Testing tavares Flexion (L2) 4 Good Extension (S1) 4 Good Abduction 4 Good Adduction 4+ Good+ External Rotation 4- Good- Internal Rotation 4 Good Knee Strength Knee Manual Muscle Testing tavares Flexion (S2) 4 Good Extension (L3) 4 Good Ankle/Foot Strength Ankle and Foot Manual Muscle Testing tavares Dorsiflexion (L4) 5 Normal Plantarflexion (S1) 5 Normal PT-OP-T Assessment and Plan Start: 08/24/20 08:09 Freq: Status: Active Protocol: Document 12/07/20 12:54 [facility] (Rec: 12/08/20 12:55 [facility] [id number]) Physical Therapy Plan Discharge Physical Therapy Discharge Reasons No Longer Attending PT Discharge Comments Patient did not choose to continue PT, now is scheduled for right TKA 12/22/20. She is coming for pre-op PT appointment tomorrow. This PT account will be discharged.
== END 2020-12-10 08:05 | disposition home or self-care (01) ==
LOC: PHYS 13:45
PROVIDERS: Family Provider Internal Medicine; PCP Internal Medicine; Referring Provider Orthopaedic Surgery; Visit Provider Orthopaedic Surgery
DX: M17.0 Bilateral primary osteoarthritis of knee (principal); M25.869 Other specified joint disorders, unspecified knee; R53.1 Weakness; R26.2 Difficulty in walking, not elsewhere classified
CPT/HCPCS: 97010; 97110; 97112; 97162; 97535

== ENCOUNTER → 2020-11-25 16:40 | Outpatient (CLI) | payer MEDICARE, OTHER, SELFPAY ==
[2020-11-25 17:45] LABS: Add Manual Diff / Slide Review NO; Basophils Absolute Auto 0 /uL (0-100); Basophils Percent Auto 0.9 % (0-2); Eosinophils Absolute Auto 200 /uL (0-450); Eosinophils Percent Auto 5.9 % (2-4); Hematocrit 36.9 % (36-46); Hemoglobin 12.4 g/dL (12.0-16.0); Lymphocytes Absolute Auto 1000 /uL (1100-4500); Lymphocytes Percent Auto 23.8 % (25-40); Mean Corpuscular HGB Conc 33.6 % (30-36); Mean Corpuscular Hemoglobin 30.8 PG (26-34); Mean Corpuscular Volume 91.4 fL (80-100); Monocytes Absolute Auto 500 /uL (0-900); Monocytes Percent Auto 12.3 % (3-14); Neutrophils Absolute Auto 2400 /uL (1500-7000); Neutrophils Percent Auto 57.1 % (50-75); Platelet Count 226 X10^3/uL (150-400); Red Blood Cell Count 4.03 X10^6/uL (4.0-5.2); Red Cell Distribution Width 13.9 % (11.6-14.8); White Blood Cell Count 4.2 X10^3/uL (4.5-11.0)
[2020-11-25 17:53] LABS: BUN Creatinine Ratio 18.8 (6-22); Blood Urea Nitrogen 9 mg/dL (7-17); Calcium 9.2 mg/dL (8.4-10.2); Carbon Dioxide 29 mmol/L (22-32); Chloride 102 mmol/L (98-107); Estimated Glomerular Filt Rate > 60.0 mL/min (>60); Glucose 84 mg/dL (80-110); HEMOLYSIS 16 (0-50); Hemoglobin A1C% w Est Avg Glu 5.2 % (4.0-6.0); Potassium 3.9 mmol/L (3.4-5.1); Sodium 135 mmol/L (137-145)
== END ==
PROVIDERS: Family Provider Internal Medicine; PCP Internal Medicine; Referring Provider Family Medicine; Visit Provider Family Medicine
DX: Z01.818 Encounter for other preprocedural examination (principal)
CPT/HCPCS: 36415; 80048; 83036; 85025

== ENCOUNTER 2020-12-08 08:47 | Outpatient (RCR) | payer MEDICARE, OTHER, SELFPAY ==
--- NOTE | 2020-12-08 09:02 | PT.OPPOC ---
Physical, Occupational & Speech Therapy At [facility] Current Diagnoses Bilateral primary osteoarthritis of knee (12/08/20) Visit Care Team Role Provider Type Alessia Irizarry DO Primary Care Provider Physician Specialty: Family Practice Address: [address] [place] [address], [facility] [place], [address] Email: [email or web address] Ran Blackwell MD Attending Provider Physician Referring Provider Specialty: Orthopedic Surgery Address: [address] [place] [address], [id number] Email: [email or web address] Plan Of Care PT-OP-T Assessment and Plan Start: 12/08/20 08:05 Freq: Status: Active Protocol: Document 12/08/20 09:02 LEVAR (Rec: 12/15/20 08:06 SAK [id number]) Physical Therapy Assessment Rehab Potential Rehabilitation Potential Good Evaluation Complexity Number of Personal Factors/Comorbidities 1-2 Number of Body Systems Impaired 3 Clinical Presentation at Evaluation Evolving Impairments Impairments Activity Tolerance,Gait,Pain, Strength Goals 4 Impairment step-to pattern on stairs, antalgic gait Short Term Goal (STG) Patient to be able to ambulate without limp with least restrictive device STG Duration 01/07/21 Residential Goal (LTG) Patient will be able to ambulate without an assistive device on all surfaces without compensation or pain. LTG Duration 03/15/21 3 Impairment weakness right knee Short Term Goal (STG) Patient HEP to be progressed to address ROM and strength deficits post-op STG Duration 01/07/21 [employer] Goal (LTG) Patient to demonstrate 5/5 muscle strength right knee LTG Duration 03/15/21 2 Impairment Lack of full ROM right knee [employer] Goal (LTG) Patient to demonstrate ROM 0- 120 right knee LTG Duration 03/15/21 1 Impairment pain right knee as high as 9/ 10 with usual activities Short Term Goal (STG) decrease pain to no greater than 4/10 STG Duration 01/07/21 [employer] Goal (LTG) decrease right knee pain to no greater than 1/10 with usual activities LTG Duration 03/15/21 Assessment Summary Assessment Patient presents to PT for pre -op appointment with Right TKA scheduled in a couple weeks. She was instructed in pre and post-op HEP, use of assistive device, home safety, pain and swelling managment, safe gait on level surfaces and stairs. We discussed post-op recovery and rehab, expectations. She demonstrated good understanding and is highly motivated. She indicated that she had been unaware of extent of rehab that would be required post-op, and that she might consider waiting until after the summer. Physical Therapy Plan Frequency and Duration Frequency of Treatment 2x/Week Duration of Treatment 12 weeks Plan of Care Start Date 12/08/20 Plan of Care End Date 03/15/21 Therapeutic Interventions Therapeutic Interventions Aquatic Therapy,Gait Training, Home Exercise Program,Manual Therapy,Neuromuscular Re- education,Patient/Caregiver Education,Self-Care/Home Management,Sensory Integration ,Taping,Therapeutic Activities ,Therapeutic Exercises Modalities Cold Pack/Ice Massage,Electric Stimulation Next Visit Focus/Plan Next Note Type Re-Evaluation Next Visit Plan Reassessment post-op and initiate outpatient TKA rehab with ther ex, manual therapy as indicated, gait training, modalites as indicated for pain and edema management. Plan of Care Dates Plan of Care Start Date 12/08/20 Plan of Care End Date 03/15/21 Electronically Signed by: Ania Palacio, PT 12/15/20 0851 Please Sign and Return: I have reviewed this Plan of Care and certify that the skilled therapy services above are required to meet the patient?s needs. Physician Signature Date Printed Name and Credentials Clinical Instructor Signature Printed Name and Credentials
--- NOTE | 2020-12-08 09:02 | PT.OIE ---
Current Diagnoses Bilateral primary osteoarthritis of knee (12/08/20) Past Medical History (Last Reviewed 11/27/20 @ 15:26 by Alessia Irizarry DO) Cervical spine disease (~1994) Chickenpox (~1957) Chronic neck and back pain (~2003) Colon polyps (~2017) Fibroids (~1991) Foot pain (~2007) Hemorrhoids (~2018) Knee osteoarthritis Measles (~1958) Mumps (~1959) Optic disc cupping (~1992) Osteopenia (~2007) Osteoporosis Osteoporosis (~2015) Seasonal allergies Venous insufficiency (~2013) Past Surgical History (Last Reviewed 11/27/20 @ 15:26 by Alessia Irizarry DO) Anesthesia History of appendectomy (~1963) History of section (~1980) History of section (~1988) History of hysterectomy (~1992) History of sinus surgery (~1990) History of surgical fusion joint (~2009) Visit Care Team Role Provider Type Alessia Irizarry DO Primary Care Provider Physician Specialty: [facility] Address: [address] [place] [address], [place], [address] Email: [email or web address] Ran Blackwell MD Attending Provider Physician Referring Provider Specialty: Orthopedic Surgery Address: [address] [place] [address], [id number] Email: [email or web address] Physical Therapy Initial Evaluation PT-OP-A Visit Information Start: 12/08/20 08:05 Freq: Status: Active Protocol: Document 12/08/20 09:02 SAK (Rec: 12/08/20 09:31 SAK [id number]) Out-Patient Physical Therapy Visit Information Visit Information Visit Type Initial Evaluation Visit Start Time 09:01 Visit Stop Time 09:45 Total Visit Minutes 44 Visit Number 1 Evaluation Information Evaluation Date 12/08/20 PT-OP-B Current Condition Start: 12/08/20 08:05 Freq: Status: Active Protocol: Document 12/08/20 09:02 SAK (Rec: 12/08/20 09:31 SAK [id number]) Current Condition History of Current Condition Onset Date years Current Complaints right knee TKA History of Current Condition Patient referred to PT for pre -op appointment with scheduled right TKA next month by Dr. Blackwell. Patient reports progressive worsening of her knee pain bilaterally right greater than left, though both are painful especially with walking on uneven ground. On stairs patient has to walk with step-to pattern to due to pain. She was previously very physically active and wants to be able to return to hiking and biking. Future Testing and Treatments Planned Patient to begin post-op outpatient PT 7 days after surgery. Treatment Goals Patient/Caregiver Goals Return to walking on all surfaces without pain, be able to bike and hike without pain . Prior Functional Status Baseline Function- ADL's Independent Baseline Function- Mobility Independent Baseline Function- Gait independent, no pain Baseline Function- Work/School retired Baseline Function- Recreation/Hobbies walking on stairs, hiking and biking without pain Current Functional Impairments (Reported) Functional Limitations- ADL's painful Functional Limitations- Mobility/Gait painful Functional Limitations- Recreation/ very limited Hobbies Personal Factors Other Personal Factors That May Effect Patient highly motivated Therapy/Recovery PT-OP-C Subjective Start: 12/08/20 08:05 Freq: Status: Active Protocol: Document 12/08/20 09:02 [facility] (Rec: 12/15/20 08:06 [facility] [id number]) Patient Questionnaires Lower Extremity Functional Scale LEFS Score 62 OP-PT Pain Assessment Location knees Pain Location Details bilateral Intensity 9 Description Aching,Chronic,Pressure,Tender ,Throbbing Frequency Frequent Pain Aggravating Factors ADL's,Activity,Exercise, Standing,Stair Climbing Pain Alleviating Factors Cold,Heat,Inactivity Patient Stated Pain Goal 0 Pain Behaviors Pain Behaviors Facial Grimacing,Guarding, Wincing PT-OP-G Mobility & Gait Start: 12/08/20 08:05 Freq: Status: Active Protocol: Document 12/08/20 09:02 [facility] (Rec: 12/15/20 08:06 [facility] [id number]) OP Mobility Evaluation Transfers Sit to Stand indep, uses hands due to knee pain Functional Movements Squats unable Running Assessment unable OP Gait Assessment Gait Gait Assistance Required: Independent Assistive Devices Assistive Device None Gait Deviations General Gait Pattern Antalgic,Decreased Stride Length,Decreased Feet Clearance Stair Climbing Evaluation Evaluation Level of Assist On Stairs Independent Devices Stair Climbing Assistive Devices Left Railing,Right Railing Technique/Endurance Stair Climbing Technique Step to Step Stair Climbing Set # Repetitions (reps) 4 PT-OP-H Neuro Start: 12/08/20 08:05 Freq: Status: Active Protocol: Document 12/08/20 09:02 [facility] (Rec: 12/15/20 08:06 [facility] [id number]) Sensation Evaluation Gross Sensation Gross Sensation WNL PT-OP-K Range of Motion Start: 12/08/20 08:05 Freq: Status: Active Protocol: Document 12/08/20 09:02 [facility] (Rec: 12/15/20 08:06 [facility] [id number]) Knee Goniometric Range of Motion Knee Right Knee ROM WFL No Flexion Active (degrees) 125 Extension Active (degrees) 6 Extension Passive (degrees) 0 Left Knee ROM WFL Yes Knee ROM Limitations Knee ROM Limitations Soft Tissue Tightness,Bony Restriction,Swelling PT-OP-M Strength Start: 12/08/20 08:05 Freq: Status: Active Protocol: Document 12/08/20 09:02 [facility] (Rec: 12/15/20 08:06 [facility] [id number]) Hip Strength Hip Manual Muscle Testing tavares Flexion (L2) 4 Good Extension (S1) 4 Good Abduction 4 Good Adduction 4 Good External Rotation 4- Good- Internal Rotation 4 Good Knee Strength Knee Manual Muscle Testing tavares Flexion (S2) 4 Good Extension (L3) 4 Good Comments painful PT-OP-Q Treatments Start: 12/08/20 08:05 Freq: Status: Active Protocol: Document 12/08/20 09:02 [facility] (Rec: 12/15/20 08:06 [facility] [id number]) Gait Training Gait Activity 1 Comments Gait training with FWW and cane and on stairs simulating post-op ambulation technique and safe use of FWW. Self-Care/Home Management Treatment Education Patient Education Home Exercise Program,Joint Protection,Pain Management, Safety Other Education Patient instructed in what to expect post-op TKA, importance of pain management, icing, elevation, compression, HEP. Given written handouts for obtaining equipment needed post-op. HEP reviewed to be performed prior to surgery and post-op. Instructed to remove throw rugs and assure grab bars for safety in bathroom. PT-OP-T Assessment and Plan Start: 12/08/20 08:05 Freq: Status: Active Protocol: Document 12/08/20 09:02 [facility] (Rec: 12/15/20 08:06 [facility]AK [id number]) Physical Therapy Assessment Rehab Potential Rehabilitation Potential Good Evaluation Complexity Number of Personal Factors/Comorbidities 1-2 Number of Body Systems Impaired 3 Clinical Presentation at Evaluation Evolving Impairments Impairments Activity Tolerance,Gait,Pain, Strength Goals 4 Impairment step-to pattern on stairs, antalgic gait Short Term Goal (STG) Patient to be able to ambulate without limp with least restrictive device STG Duration 01/07/21 [employer] Goal (LTG) Patient will be able to ambulate without an assistive device on all surfaces without compensation or pain. LTG Duration 03/15/21 3 Impairment weakness right knee Short Term Goal (STG) Patient HEP to be progressed to address ROM and strength deficits post-op STG Duration 01/07/21 Retirement Goal (LTG) Patient to demonstrate 5/5 muscle strength right knee LTG Duration 03/15/21 2 Impairment Lack of full ROM right knee [employer] Goal (LTG) Patient to demonstrate ROM 0- 120 right knee LTG Duration 03/15/21 1 Impairment pain right knee as high as 9/ 10 with usual activities Short Term Goal (STG) decrease pain to no greater than 4/10 STG Duration 01/07/21 [employer] Goal (LTG) decrease right knee pain to no greater than 1/10 with usual activities LTG Duration 03/15/21 Assessment Summary Assessment Patient presents to PT for pre -op appointment with Right TKA scheduled in a couple weeks. She was instructed in pre and post-op HEP, use of assistive device, home safety, pain and swelling managment, safe gait on level surfaces and stairs. We discussed post-op recovery and rehab, expectations. She demonstrated good understanding and is highly motivated. She indicated that she had been unaware of extent of rehab that would be required post-op, and that she might consider waiting until after the summer. Physical Therapy Plan Frequency and Duration Frequency of Treatment 2x/Week Duration of Treatment 12 weeks Plan of Care Start Date 12/08/20 Plan of Care End Date 03/15/21 Therapeutic Interventions Therapeutic Interventions Aquatic Therapy,Gait Training, Home Exercise Program,Manual Therapy,Neuromuscular Re- education,Patient/Caregiver Education,Self-Care/Home Management,Sensory Integration ,Taping,Therapeutic Activities ,Therapeutic Exercises Modalities Cold Pack/Ice Massage,Electric Stimulation Next Visit Focus/Plan Next Note Type Re-Evaluation Next Visit Plan Reassessment post-op and initiate outpatient TKA rehab with ther ex, manual therapy as indicated, gait training, modalites as indicated for pain and edema management.
--- NOTE | 2020-12-15 16:40 | PT.OPDS ---
Current Diagnoses Bilateral primary osteoarthritis of knee (12/08/20) Visit Care Team Role Provider Type Alessia Irizarry DO Primary Care Provider Physician Specialty: Family Practice Address: [facility], [place], [address] Email: [email or web address] Ran [email or web address] MD Attending Provider Physician Referring Provider Specialty: Orthopedic Surgery Address: [address] [place] [address], [place], [address] Email: [email or web address] Visit Number Visit Number 1 Discharge Summary PT-OP-B Current Condition Start: 12/08/20 08:05 Freq: Status: Active Protocol: Document 12/08/20 09:02 SAK (Rec: 12/08/20 09:31 SAK [id number]) Current Condition History of Current Condition Onset Date years Current Complaints right knee TKA History of Current Condition Patient referred to PT for pre -op appointment with scheduled right TKA next month by Dr. Blackwell. Patient reports progressive worsening of her knee pain bilaterally right greater than left, though both are painful especially with walking on uneven ground. On stairs patient has to walk with step-to pattern to due to pain. She was previously very physically active and wants to be able to return to hiking and biking. Future Testing and Treatments Planned Patient to begin post-op outpatient PT 7 days after surgery. Treatment Goals Patient/Caregiver Goals Return to walking on all surfaces without pain, be able to bike and hike without pain . Prior Functional Status Baseline Function- ADL's Independent Baseline Function- Mobility Independent Baseline Function- Gait independent, no pain Baseline Function- Work/School retired Baseline Function- Recreation/Hobbies walking on stairs, hiking and biking without pain Current Functional Impairments (Reported) Functional Limitations- ADL's painful Functional Limitations- Mobility/Gait painful Functional Limitations- Recreation/ very limited Hobbies Personal Factors Other Personal Factors That May Effect Patient highly motivated Therapy/Recovery PT-OP-C Subjective Start: 12/08/20 08:05 Freq: Status: Active Protocol: Document 12/08/20 09:02 SAK (Rec: 12/15/20 08:06 SAK [id number]) Patient Questionnaires Lower Extremity Functional Scale LEFS Score 62 OP-PT Pain Assessment Location knees Pain Location Details bilateral Intensity 9 Description Aching,Chronic,Pressure,Tender ,Throbbing Frequency Frequent Pain Aggravating Factors ADL's,Activity,Exercise, Standing,Stair Climbing Pain Alleviating Factors Cold,Heat,Inactivity Patient Stated Pain Goal 0 Pain Behaviors Pain Behaviors Facial Grimacing,Guarding, Wincing PT-OP-G Mobility & Gait Start: 12/08/20 08:05 Freq: Status: Active Protocol: Document 12/08/20 09:02 [facility] (Rec: 12/15/20 08:06 [facility] [id number]) OP Mobility Evaluation Transfers Sit to Stand indep, uses hands due to knee pain Functional Movements Squats unable Running Assessment unable OP Gait Assessment Gait Gait Assistance Required: Independent Assistive Devices Assistive Device None Gait Deviations General Gait Pattern Antalgic,Decreased Stride Length,Decreased Feet Clearance Stair Climbing Evaluation Evaluation Level of Assist On Stairs Independent Devices Stair Climbing Assistive Devices Left Railing,Right Railing Technique/Endurance Stair Climbing Technique Step to Step Stair Climbing Set # Repetitions (reps) 4 PT-OP-H Neuro Start: 12/08/20 08:05 Freq: Status: Active Protocol: Document 12/08/20 09:02 [facility] (Rec: 12/15/20 08:06 [facility] [id number]) Sensation Evaluation Gross Sensation Gross Sensation WNL PT-OP-K Range of Motion Start: 12/08/20 08:05 Freq: Status: Active Protocol: Document 12/08/20 09:02 [facility] (Rec: 12/15/20 08:06 [facility] [id number]) Knee Goniometric Range of Motion Knee Right Knee ROM WFL No Flexion Active (degrees) 125 Extension Active (degrees) 6 Extension Passive (degrees) 0 Left Knee ROM WFL Yes Knee ROM Limitations Knee ROM Limitations Soft Tissue Tightness,Bony Restriction,Swelling PT-OP-M Strength Start: 12/08/20 08:05 Freq: Status: Active Protocol: Document 12/08/20 09:02 [facility] (Rec: 12/15/20 08:06 [facility] [id number]) Hip Strength Hip Manual Muscle Testing tavares Flexion (L2) 4 Good Extension (S1) 4 Good Abduction 4 Good Adduction 4 Good External Rotation 4- Good- Internal Rotation 4 Good Knee Strength Knee Manual Muscle Testing tavares Flexion (S2) 4 Good Extension (L3) 4 Good Comments painful PT-OP-T Assessment and Plan Start: 12/08/20 08:05 Freq: Status: Active Protocol: Document 12/15/20 16:39 [facility] (Rec: 12/15/20 16:40 [facility] [id number]) Physical Therapy Plan Discharge Physical Therapy Discharge Comments Patient to be discharged due to decision to postpone surgery.
== END 2020-12-16 13:07 | disposition home or self-care (01) ==
LOC: PHYS 08:47
PROVIDERS: PCP Family Medicine; Referring Provider Orthopaedic Surgery Adult Reconstructive Orthopaedic Surgery; Visit Provider Orthopaedic Surgery Adult Reconstructive Orthopaedic Surgery
DX: M17.0 Bilateral primary osteoarthritis of knee (principal)
CPT/HCPCS: 97161; 97535

== ENCOUNTER → 2020-12-17 10:25 | Outpatient (CLI) | payer MEDICARE, OTHER, SELFPAY ==
--- NOTE | 2020-12-17 10:29 | DI.MG.S_ITS ---
BILATERAL DIGITAL SCREENING MAMMOGRAM 3D/2D WITH CAD: 12/17/2020 CLINICAL: Routine screening. Family history of breast cancer. Comparison is made to exams dated: 11/19/2018 mammogram, 10/27/2015 mammogram, and 04/14/2013 mammogram - [facility]. The tissue of both breasts is heterogeneously dense. This may lower the sensitivity of mammography. Current study was also evaluated with a Computer Aided Detection (CAD) system. No significant masses, calcifications, or other findings are seen in either breast. There has been no significant interval change. IMPRESSION: NEGATIVE There is no mammographic evidence of malignancy. A 1 year screening mammogram is recommended. This exam was interpreted at Station ID: [id number]. NOTE: For mammograms, a report in lay terms will be sent to the patient. Approximately 15% of breast malignancies will not be visualized mammographically. In the management of a palpable breast mass, a negative mammogram must not discourage biopsy of a clinically suspicious lesion. Electronically Signed By: Christie ahmpton/yuliet:12/17/2020 12:44:21 letter sent: Normal Exam ACR BI-RADS Category 1: Negative 3341F
== END ==
PROVIDERS: PCP Family Medicine; Referring Provider Family Medicine; Visit Provider Family Medicine
DX: M81.0 Age-related osteoporosis without current pathological fracture (principal); Z12.31 Encounter for screening mammogram for malignant neoplasm of breast; Z80.3 Family history of malignant neoplasm of breast; Z78.0 Asymptomatic menopausal state; Z87.891 Personal history of nicotine dependence; Z90.722 Acquired absence of ovaries, bilateral
CPT/HCPCS: 77063; 77067; 77080

== ENCOUNTER → 2021-01-18 13:11 | Outpatient (CLI) | payer MEDICARE, OTHER, SELFPAY ==
[2021-01-18 18:07] LABS: Vitamin D 25 Hydroxy (D3) 74.6 ng/mL (30.0-100.0)
== END ==
PROVIDERS: PCP Family Medicine; Referring Provider Family Medicine; Visit Provider Family Medicine
DX: M81.0 Age-related osteoporosis without current pathological fracture (principal)
CPT/HCPCS: 36415; 82306

== ENCOUNTER → 2021-03-10 10:39 | Outpatient (CLI) | payer MEDICARE, OTHER, SELFPAY ==
[2021-03-10 12:28] LABS: Add Manual Diff / Slide Review NO; Basophils Absolute Auto 0 /uL (0-100); Basophils Percent Auto 0.8 % (0-2); Eosinophils Absolute Auto 200 /uL (0-450); Eosinophils Percent Auto 4.3 % (2-4); Hemoglobin 12.8 g/dL (12.0-16.0); Lymphocytes Absolute Auto 1200 /uL (1100-4500); Mean Corpuscular HGB Conc 33.7 % (30-36); Mean Corpuscular Volume 92.2 fL (80-100); Monocytes Absolute Auto 600 /uL (0-900); Monocytes Percent Auto 11.3 % (3-14); Neutrophils Absolute Auto 3100 /uL (1500-7000); Neutrophils Percent Auto 60.6 % (50-75); Platelet Count 261 X10^3/uL (150-400); Red Blood Cell Count 4.12 X10^6/uL (4.0-5.2); Red Cell Distribution Width 14.1 % (11.6-14.8); White Blood Cell Count 5.2 X10^3/uL (4.5-11.0)
[2021-03-10 12:29] LABS: BUN Creatinine Ratio 26.1 (6-22); Blood Urea Nitrogen 12 mg/dL (7-17); Calcium 9.2 mg/dL (8.4-10.2); Carbon Dioxide 27 mmol/L (22-32); Chloride 102 mmol/L (98-107); Estimated Glomerular Filt Rate > 60.0 mL/min (>60); Glucose 90 mg/dL (80-110); HEMOLYSIS < 15 (0-50); Potassium 3.9 mmol/L (3.4-5.1); Sodium 134 mmol/L (137-145)
[2021-03-10 13:10] LABS: Hemoglobin A1C% w Est Avg Glu 5.3 % (4.0-6.0)
== END ==
PROVIDERS: PCP Family Medicine; Referring Provider Orthopaedic Surgery Adult Reconstructive Orthopaedic Surgery; Visit Provider Orthopaedic Surgery Adult Reconstructive Orthopaedic Surgery
DX: Z01.812 Encounter for preprocedural laboratory examination (principal); R73.9 Hyperglycemia, unspecified
CPT/HCPCS: 36415; 80048; 83036; 85025

== ENCOUNTER → 2021-05-05 11:24 | Outpatient (CLI) | payer MEDICARE, OTHER, SELFPAY ==
[2021-05-05 12:48] LABS: Add Manual Diff / Slide Review NO; Basophils Absolute Auto 0 /uL (0-100); Basophils Percent Auto 0.7 % (0-2); Eosinophils Absolute Auto 200 /uL (0-450); Eosinophils Percent Auto 4.7 % (2-4); Hematocrit 38.6 % (36-46); Hemoglobin 12.9 g/dL (12.0-16.0); Lymphocytes Absolute Auto 1300 /uL (1100-4500); Lymphocytes Percent Auto 29.4 % (25-40); Mean Corpuscular HGB Conc 33.3 % (30-36); Mean Corpuscular Hemoglobin 30.5 PG (26-34); Mean Corpuscular Volume 91.5 fL (80-100); Monocytes Absolute Auto 400 /uL (0-900); Monocytes Percent Auto 9.3 % (3-14); Neutrophils Absolute Auto 2400 /uL (1500-7000); Neutrophils Percent Auto 55.9 % (50-75); Platelet Count 254 X10^3/uL (150-400); Red Blood Cell Count 4.22 X10^6/uL (4.0-5.2); Red Cell Distribution Width 14.2 % (11.6-14.8); White Blood Cell Count 4.3 X10^3/uL (4.5-11.0)
[2021-05-05 13:08] LABS: Erythrocyte Sedimentation Rate 7 MM/HR (0-20)
[2021-05-05 13:16] LABS: Alanine Aminotransferase 8 IU/L (<35); Albumin 3.9 g/dL (3.5-5.0); Albumin Globulin Ratio 1.6 (1.0-2.8); Alkaline Phosphatase 61 U/L (38-126); Aspartate Aminotransferase 31 IU/L (14-36); BUN Creatinine Ratio 21.1 (6-22); Bilirubin Total 0.3 mg/dL (0.2-1.3); Blood Urea Nitrogen 12 mg/dL (7-17); Calcium 9.4 mg/dL (8.4-10.2); Carbon Dioxide 27 mmol/L (22-32); Chloride 104 mmol/L (98-107); Estimated Glomerular Filt Rate > 60.0 mL/min (>60); Globulin 2.5 g/dL (1.7-4.1); Glucose 87 mg/dL (80-110); HEMOLYSIS < 15 (0-50); Potassium 4.2 mmol/L (3.4-5.1); Sodium 136 mmol/L (137-145); Total Protein 6.4 g/dL (6.3-8.2)
[2021-05-05 13:20] LABS: High Sensitivity CRP - Cardiac 0.5 mg/L (1.0-3.0)
[2021-05-05 13:51] LABS: Thyroid Stimulating Hormone 2.15 uIU/mL (0.47-4.68)
== END ==
PROVIDERS: PCP Family Medicine; Referring Provider Ophthalmology; Visit Provider Ophthalmology
DX: H53.2 Diplopia (principal); H49.11 Fourth [trochlear] nerve palsy, right eye; H53.451 Other localized visual field defect, right eye
CPT/HCPCS: 36415; 80053; 84443; 85025; 85651; 86140

== ENCOUNTER → 2021-05-07 11:10 | Outpatient (CLI) | payer MEDICARE, OTHER, SELFPAY ==
--- NOTE | 2021-05-07 11:12 | DI.MRI.S_ITS ---
PROCEDURE: MR ANGIO HEAD WO CON INDICATIONS: Diplopia TECHNIQUE: Noncontrast axial 3-D [id number] MR angiogram, with 3-dimensional maximum intensity projection (MIP) reformats of the internal carotid arteries and posterior circulation then performed. COMPARISON: [facility], , MR HEAD/BRAIN WO/W CON, 05/07/2021, 11:38. FINDINGS: Image quality: Excellent. Anterior circulation: Intracranial internal carotid arteries demonstrate normal size and intraluminal flow signal. The flow within the paired anterior cerebral arteries is normal and symmetric. The flow within the middle cerebral arteries is normal and symmetric. The anterior communicating artery is seen. No stenoses, occlusions, or aneurysms. Posterior circulation: Visualized portions of the vertebral arteries demonstrate normal caliber, and join to form a normal appearing basilar artery. The flow within the posterior cerebral arteries is normal and symmetric. No stenoses, occlusions, or aneurysms. There is a left vertebral artery dominance. IMPRESSION: No areas of hemodynamically significant stenosis, vascular occlusion or aneurysmal dilation within the anterior for posterior circulation. Dictated by: Selma Meredith M.D. on 05/09/2021 at 9:14 Approved by: Selma Meredith M.D. on 05/09/2021 at 10:08
--- NOTE | 2021-05-07 11:12 | DI.MRI.S_ITS ---
PROCEDURE: MR HEAD/BRAIN WO/W CON INDICATIONS: Diplopia TECHNIQUE: Noncontrast axial T1 spin echo, axial T2 fast spin echo, sagittal and axial FLAIR, coronal T2 fast spin echo, axial gradient echo, axial diffusion and ADC through the brain. After the administration of contrast, axial and coronal 3D VIBE or T1 spin echo with fat saturation through the brain. COMPARISON: [facility], MR, MR ANGIO HEAD WO CON, 05/07/2021, 11:27. FINDINGS: Image quality: Excellent. CSF Spaces: Basal cisterns are patent. No extra-axial fluid collections. Ventricles are normal in size and shape. Brain: No midline shift. No intracranial bleeds or masses. No abnormal intracranial enhancement. The brainstem appears normal. Diffusion-weighted images demonstrate no acute ischemic insults. No chronic ischemic insults. Normal intravascular flow voids are present. Skull and face: Calvarial marrow is normal in signal. Orbits appear normal. Sinuses: Sinuses and mastoids appear clear. IMPRESSION: 1. No acute intracranial process. 2. No visualized cause of diplopia. Dictated by: Selma Meredith M.D. on 05/09/2021 at 8:42 Approved by: Selma Meredith M.D. on 05/09/2021 at 8:47
== END ==
PROVIDERS: PCP Family Medicine; Referring Provider Ophthalmology; Visit Provider Ophthalmology
DX: H53.2 Diplopia (principal); H49.10 Fourth [trochlear] nerve palsy, unspecified eye; H53.451 Other localized visual field defect, right eye
CPT/HCPCS: 70544; 70553; A9579

== ENCOUNTER → 2021-08-08 12:27 | Outpatient (CLI) | payer MEDICARE, OTHER, SELFPAY ==
--- NOTE | 2021-08-08 12:30 | DI.RAD.S_ITS ---
PROCEDURE: XR SACRUM COCCYX MIN 2V INDICATIONS: fall on sacrum, osteoporosis TECHNIQUE: 3 views of the sacrum and coccyx acquired. COMPARISON: None. FINDINGS: The sacrum is obscured by overlying intestinal contents on the AP view. There is no gross evidence of sacral fracture on the lateral view. IMPRESSION: No plain radiographic evidence of sacral fracture. If there is continued clinical concern, CT or MRI would be recommended. Dictated by: Landon Ferrer M.D. on 08/08/2021 at 15:11 Approved by: Landon Ferrer M.D. on 08/08/2021 at 15:11
== END ==
PROVIDERS: PCP Family Medicine; Referring Provider Family Medicine; Visit Provider Family Medicine
DX: M53.3 Sacrococcygeal disorders, not elsewhere classified (principal); M81.0 Age-related osteoporosis without current pathological fracture
CPT/HCPCS: 72220

== ENCOUNTER → 2022-02-02 11:03 | Outpatient (CLI) | payer MEDICARE, OTHER, SELFPAY | PROVIDERS: PCP Family Medicine; Referring Provider Family Medicine; Visit Provider Family Medicine | DX: M81.0 Age-related osteoporosis without current pathological fracture (principal); Z78.0 Asymptomatic menopausal state; Z92.29 Personal history of other drug therapy | CPT/HCPCS: 77080 ==

== ENCOUNTER → 2022-12-28 14:44 | Outpatient (CLI) | payer MEDICARE, OTHER, SELFPAY ==
[2022-12-28 16:48] LABS: Hematocrit 39.9 % (36-46); Hemoglobin 13.5 g/dL (12.0-16.0); Mean Corpuscular HGB Conc 33.9 % (30-36); Mean Corpuscular Hemoglobin 30.8 PG (26-34); Mean Corpuscular Volume 90.8 fL (80-100); Platelet Count 273 X10^3/uL (150-400); Red Blood Cell Count 4.39 X10^6/uL (4.0-5.2); Red Cell Distribution Width 15.5 % (11.6-14.8); White Blood Cell Count 5.1 X10^3/uL (4.5-11.0)
[2022-12-28 18:00] LABS: Alanine Aminotransferase 13 IU/L (<35); Albumin 4.3 g/dL (3.5-5.0); Albumin Globulin Ratio 1.5 (1.0-2.8); Alkaline Phosphatase 71 U/L (38-126); Aspartate Aminotransferase 32 IU/L (14-36); BUN Creatinine Ratio 15.1 (6-22); Bilirubin Total 0.3 mg/dL (0.2-1.3); Blood Urea Nitrogen 8 mg/dL (7-17); Calcium 9.6 mg/dL (8.4-10.2); Carbon Dioxide 28 mmol/L (22-32); Chloride 98 mmol/L (98-107); Estimated Glomerular Filt Rate > 60 mL/min (>60); Globulin 2.9 g/dL (1.7-4.1); Glucose 100 mg/dL (80-110); HEMOLYSIS < 15 (0-50); Potassium 4.2 mmol/L (3.4-5.1); Sodium 134 mmol/L (137-145); Total Protein 7.2 g/dL (6.3-8.2)
[2022-12-28 18:35] LABS: TSH w/ Reflex to FT4 2.55 uIU/mL (0.47-4.68)
[2022-12-28 18:49] LABS: Vitamin B12 Reflex MMA if <400 325 pg/mL (239-931)
[2023-01-04 18:07] LABS: Methylmalonic Acid,Serum 220 nmol/L (0-378)
== END ==
PROVIDERS: PCP Family Medicine; Referring Provider Nurse Practitioner Family; Visit Provider Nurse Practitioner Family
DX: R53.83 Other fatigue (principal)
CPT/HCPCS: 36415; 80053; 82607; 83921; 84443; 85027

== ENCOUNTER → 2023-06-09 11:04 | Outpatient (CLI) | payer MEDICARE, OTHER, SELFPAY ==
[2023-06-11 09:22] LABS: Fecal Immunochemical Test Negative (Negative)
== END ==
PROVIDERS: PCP Family Medicine; Referring Provider Family Medicine; Visit Provider Family Medicine
DX: K63.5 Polyp of colon (principal); Z12.11 Encounter for screening for malignant neoplasm of colon
CPT/HCPCS: 82274

== ENCOUNTER → 2023-06-15 11:48 | Outpatient (CLI) | payer MEDICARE, OTHER, SELFPAY ==
--- NOTE | 2023-06-15 11:49 | DI.MG.S_ITS ---
BILATERAL DIGITAL SCREENING MAMMOGRAM 3D/2D WITH CAD: 06/15/2023 CLINICAL: Routine screening. Family history of breast cancer. Comparison is made to exams dated: 12/17/2020 mammogram, 11/19/2018 mammogram, and 10/27/2015 mammogram - [facility]. Both breasts are heterogeneously dense, which may obscure small masses (category c / 51-75% glandular tissue). Current study was also evaluated with a Computer Aided Detection (CAD) system. No significant masses, calcifications, or other findings are seen in either breast. There has been no significant interval change. IMPRESSION: NEGATIVE There is no mammographic evidence of malignancy. A 1 year screening mammogram is recommended. Based on the Tyrer Cuzick model (a risk assessment model) the patient's lifetime risk is 5.7% and her 10 year risk is 3.9%. According to the ACR, ACS, and NCCN guidelines, an annual breast MRI exam along with mammogram is recommended if the patient's lifetime risk is 20% or greater. This exam was interpreted at Station ID: [id number]. NOTE: For mammograms, a report in lay terms will be sent to the patient. Approximately 15% of breast malignancies will not be visualized mammographically. In the management of a palpable breast mass, a negative mammogram must not discourage biopsy of a clinically suspicious lesion. Electronically Signed By: Papi walter/yuliet:06/15/2023 15:23:57 letter sent: Normal Exam ACR BI-RADS Category 1: Negative 3341F
--- NOTE | 2023-06-15 11:49 | DI.RAD.S_ITS ---
Bone Density Report Name: ADDY CHASE Age: 73 Sex: Female Ethnicity: White Date of : 1950 Indication: postmenopausal osteoporosis; monitoring treatment; Referring Provider: VIVIAN ALEJO Study: Bone densitometry was performed. Exam Date: June 15, 2023 Accession number: [id number] Bone Density: Region BMD T-score Z-score Classification AP Spine(L1-L4) 0.659 -3.5 -1.3 Osteoporosis Femoral Neck (Left) 0.567 -2.5 -0.7 Osteoporosis Total Hip (Left) 0.690 -2.1 -0.5 Osteopenia Femoral Neck (Right) 0.536 -2.8 -1.0 Osteoporosis Total Hip (Right) 0.714 -1.9 -0.3 Osteopenia Total Hip Mean 0.702 -2.0 -0.4 Osteopenia World Health Organization criteria for BMD impression classify patients as: Normal (T-score at or above -1.0), Osteopenia (T-score between -1.0 and -2.5), or Osteoporosis (T-score at or below -2.5). 10-year Fracture Risk: FRAX not reported because: Some T-score for Spine Total or Hip Total or Femoral Neck at or below -2.5 Treated for osteoporosis Previous Exams: -- Region Exam Age BMD T-score BMD Change BMD Change Date g/cm2 vs Baseline vs Previous -- AP Spine (L1-L4) 06/15/2023 73 0.659 -3.5 -0.001 (-0.2%)# 0.038 (6.0%)* 02/02/2022 71 0.621 -3.9 -0.039 (-5.8%)# -0.005 (-0.8%)# 12/17/2020 70 0.626 -3.8 -0.034 (-5.1%)* -0.034 (-5.1%)* 06/27/2018 68 0.660 -3.5 Total Hip(Left) 06/15/2023 73 0.690 -2.1 -0.021 (-3.0%)# -0.025 (-3.5%) 02/02/2022 71 0.715 -1.9 0.004 (0.6%)# 0.061 (9.4%)# 12/17/2020 70 0.654 -2.4 -0.057 (-8.0%)* -0.057 (-8.0%)* 06/27/2018 68 0.711 -1.9 Total Hip(Right) 06/15/2023 73 0.714 -1.9 0.005 (0.7%)# -0.032 (-4.2%)* 02/02/2022 71 0.746 -1.6 0.037 (5.2%)# 0.084 (12.7%)# 12/17/2020 70 0.662 -2.3 -0.047 (-6.7%)* -0.047 (-6.7%)* 06/27/2018 68 0.709 -1.9 -- *Denotes significance at 95% confidence level, LSC for AP Spine = 0.022 g/cm2, LSC for Total Hip = 0.027 g/cm2 # Denotes dissimilar scan types or analysis methods Impression: The patient has osteoporosis, based on the Total Spine T-score. The BMD for the Total Hip(Right) decreased, changing by -4.2% since the last DXA exam. Discussion: SIGNIFICANT BONE LOSS OBSERVED. Adherence to therapy (including calcium and vitamin D intake) should be assessed. If compliance is not a factor, review management and exclusion of secondary causes of bone loss. It is important to ask patients whether they are taking their medications and to encourage continued and appropriate compliance with their osteoporosis therapies to reduce fracture risk. It is also important to review their risk factors and encourage appropriate calcium and vitamin D intakes, exercise, fall prevention and other lifestyle measures. Follow-Up: Consider a repeat BMD and Vertebral Fracture Assessment (VFA) exam in 2 years or sooner if medically necessary, to reassess this patient's status. Reported by: PRASHANT JAMESON M.D. on 06/15/2023 12:32:00 PM.
== END ==
PROVIDERS: PCP Family Medicine; Referring Provider Family Medicine; Visit Provider Family Medicine
DX: Z12.31 Encounter for screening mammogram for malignant neoplasm of breast (principal); N95.9 Unspecified menopausal and perimenopausal disorder; Z13.820 Encounter for screening for osteoporosis; Z80.3 Family history of malignant neoplasm of breast; M81.0 Age-related osteoporosis without current pathological fracture; M85.88 Other specified disorders of bone density and structure, other site
CPT/HCPCS: 77063; 77067; 77080

== ENCOUNTER → 2023-07-15 13:15 | Outpatient (CLI) | payer MEDICARE, OTHER, SELFPAY ==
--- NOTE | 2023-07-15 13:19 | DI.RAD.S_ITS ---
PROCEDURE: XR SHOULDER LT MIN 2V INDICATIONS: Left shoulder pain TECHNIQUE: 3 views of the shoulder were acquired. COMPARISON: None. FINDINGS: Bones: No fractures or dislocations. No suspicious bony lesions. Visualized ribs appear intact. Mild to moderate glenohumeral osteoarthrosis with joint space narrowing and osteophyte formation. Partially visualized cervical fixation hardware. Soft tissues: No suspicious soft tissue calcifications. IMPRESSION: No acute osseous finding. [id number] shoulder osteoarthritic change. Dictated by: Braxton Ferrer M.D. on 07/15/2023 at 13:58 Approved by: Braxton Ferrer M.D. on 07/15/2023 at 13:59
== END ==
PROVIDERS: PCP Family Medicine; Referring Provider Nurse Practitioner Family; Visit Provider Nurse Practitioner Family
DX: M25.512 Pain in 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 (principal); M19.012 Primary osteoarthritis, 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
CPT/HCPCS: 73030

== ENCOUNTER → 2023-07-24 13:59 | Outpatient (CLI) | payer MEDICARE, OTHER, SELFPAY ==
--- NOTE | 2023-07-24 14:00 | DI.RAD.S_ITS ---
PROCEDURE: XR SHOULDER LT MIN 2V INDICATIONS: continued sharp pain srinivas @ [employer] TECHNIQUE: 3 views of the shoulder were acquired. COMPARISON: [facility], CR, XR SHOULDER LT MIN 2V, 07/15/2023, 13:23. FINDINGS: Bones: No fractures or dislocations. No suspicious bony lesions. Moderate glenohumeral joint degeneration and mild acromioclavicular joint degeneration. Visualized ribs appear intact. Soft tissues: No suspicious soft tissue calcifications. IMPRESSION: 1. No acute bony abnormality. 2. Moderate osteoarthritis. 3. If clinical symptoms persist or there is clinical suspicion for internal derangement, consider MRI. Dictated by: Em Inman M.D. on 07/24/2023 at 19:21 Approved by: Em Inman M.D. on 07/24/2023 at 19:22
== END ==
PROVIDERS: PCP Family Medicine; Referring Provider Physician Assistant; Visit Provider Physician Assistant
DX: M19.012 Primary osteoarthritis, 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 (principal); S46.012A Strain of muscle(s) and tendon(s) of the rotator cuff of 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, initial encounter
CPT/HCPCS: 73030

== ENCOUNTER → 2023-08-18 09:27 | Outpatient (CLI) | payer MEDICARE, OTHER, SELFPAY ==
--- NOTE | 2023-08-18 09:28 | DI.MRI.S_ITS ---
PROCEDURE: MR SHOULDER LT WO CON INDICATIONS: chronic pain s/p injury 08/2022 TECHNIQUE: Noncontrast oblique coronal T2 fast spin echo with fat saturation, oblique sagittal T1 spin echo and T2 fast spin echo with fat saturation, axial T1 spin echo and T2 fast spin echo with fat saturation through the shoulder. COMPARISON: [facility], CR, XR SHOULDER LT MIN 2V, 07/24/2023, 14:02. [facility], CR, XR SHOULDER LT MIN 2V, 07/15/2023, 13:23. FINDINGS: Image quality: Excellent. Rotator cuff: There is intermediate partial-thickness tear of the supraspinatus tendon from the musculotendinous junction to the footprint. There is moderate supraspinatus tendinosis. Moderate supraspinatus tendinosis is also present in infraspinatus and subscapularis tendons with low-grade partial-thickness tear. Sagittal images demonstrate no rotator cuff muscle atrophy. Bones and bursae: No bone marrow contusions or fractures. Mild acromioclavicular and moderate glenohumeral joint degeneration. The acromion demonstrates conventional anatomy, without an os acromiale. There is small glenohumeral joint effusion. There is subcoracoid bursal fluid suggesting mild bursitis. There are to small intra-articular bodies within the subcoracoid bursa. Capsule and soft tissues: There is degenerative labral fraying. The long head of the biceps tendon demonstrates normal location and morphology. The rotator interval appears normal, without fibrosis. The coracohumeral ligament is normal in thickness. IMPRESSION: 1. Intermediate partial-thickness tear of the supraspinatus tendon. 2. Moderate infraspinatus and subscapularis tendinosis. 3. Mild acromioclavicular and moderate glenohumeral joint degeneration. 4. Subcoracoid bursitis. There are couple of small intra-articular bodies in subcoracoid bursa. 5. Degenerative labral fraying. Dictated by: Em Inman M.D. on 08/21/2023 at 12:03 Approved by: Em Inman M.D. on 08/21/2023 at 12:20
== END ==
PROVIDERS: Family Provider Family Medicine; PCP Family Medicine; Referring Provider Family Medicine; Visit Provider Family Medicine
DX: M19.012 Primary osteoarthritis, 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 (principal); S46.012A Strain of muscle(s) and tendon(s) of the rotator cuff of 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, initial encounter; M75.52 Bursitis of 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
CPT/HCPCS: 73221

== ENCOUNTER 2023-11-21 08:15 | Outpatient (RCR) | payer MEDICARE, OTHER, SELFPAY ==
--- NOTE | 2023-08-06 09:33 | PT.OPPOC ---
Physical, Occupational & Speech Therapy At [facility] Current Diagnoses Primary osteoarthritis, 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 (08/06/23) Strain of muscle(s) and tendon(s) of the rotator cuff of 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, initial encounter (08/06/23) Visit Care Team Role Provider Type Loren Desouza DO Family Provider Physician Primary Care Provider Specialty: Family Practice Address: [address] [place] [address], [address], [address] Email: [email or web address] Attending Provider Advanced Carpenter [employer] Referring Provider Specialty: Medical Wound Care Address: [address] [place] [address], [address] Email: [email or web address] Plan Of Care PT-OP-T Assessment and Plan Start: 08/05/23 15:32 Freq: Status: Active Protocol: Document 08/06/23 09:33 LEVAR (Rec: 08/06/23 11:18 [facility] [id number]) Physical Therapy Assessment Rehab Potential Rehabilitation Potential Good Evaluation Complexity Number of Personal Factors/Comorbidities 1-2 Number of Body Systems Impaired 3 Clinical Presentation at Evaluation Evolving Impairments Impairments Activity Tolerance,Pain,ROM, Soft Tissue Mobility,Strength Goals 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 Correction Goal (LTG) 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 LTG Duration 11/05/23 Three Impairment ROM limitations Impairment 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 elevation 45 deg AROM, 125 PROM Short Term Goal (STG) Improve AROM 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 elevation to at least 110 degrees with 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 Airplane Cabin Attendant Goal (LTG) AROM elevation 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 to at least 155 deg with 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 to allow her to return to usual activities LTG Duration 11/05/23 Two Impairment Activity tolerance Impairment QuickDash UE disability index score 81% Short Term Goal (STG) Decrease Quickdash score to no greater than 50% as measure of improved activity tolerance with left UE STG Duration 09/27/23 Airplane Cabin Attendant Goal (LTG) Decrease Quickdash score to no greater than 20% as measure of improved activity tolerance with left UE LTG Duration 11/05/23 One Impairment severe pain 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 with movement especially overhead and behind back Short Term Goal (STG) Decrease pain by at least 50% at rest STG Duration 09/27/23 Airplane Cabin Attendant Goal (LTG) Decrease pain by at least 75% with all usual activities including ability to reach overhead and behind her back for ADL's and usual household activities. LTG Duration 11/05/23 Assessment Summary Assessment Patient presents to PT with severe function-limiting pain in her 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. Signs and symptoms plus special tests are positive for rotator cuff tear. High level or irritability of shoulder pain makes testing difficult. She is tender to palpation RC insertion along with positive special testing. 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 Feel she would benefit from PT to decrease her pain, improve her ROM, functional strength, and help her return to her functiona activities. At this time I would also recommend an MRI due to PT findings today. POC was discussed and patient was in agreement. Initiated treatment with instruction in gentle ROM exercises and application of kinesiotape 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. Patient to see Dr. Logan . Physical Therapy Plan Frequency and Duration Frequency of Treatment 2x/Week Duration of treatment (weeks) 8 Plan of Care Start Date 08/06/23 Plan of Care End Date 10/07/23 Therapeutic Interventions Therapeutic Interventions Home Exercise Program,Joint Mobilizations,Manual Therapy, Patient/Caregiver Education, Self-Care/Home Management,Soft Tissue Mobilization,Taping, Therapeutic Activities, Therapeutic Exercises Modalities Cold Pack/Ice Massage,Electric Stimulation,Hot Packs, Infrared Therapy Next Visit Focus/Plan Next Note Type Treatment Note Next Visit Plan Review HEP and response to kinesiotape. Gentle ex progression, cross friction massage, cold laser treatment or iotophoresis for pain relief. Ice and IFES. Plan of Care Dates Plan of Care Start Date 08/06/23 Plan of Care End Date 10/07/23 Electronically Signed by: Ania Palacio, PT 08/07/23 [id number] If you are in agreement with this Plan of Care, please return a signed and dated copy. I have reviewed this Plan of Care and certify that the skilled therapy services above are required to meet the patient?s needs. Physician Signature Date Printed Name and Credentials Clinical Instructor Signature Printed Name and Credentials
--- NOTE | 2023-08-06 09:33 | PT.OIE ---
Current Diagnoses Primary osteoarthritis, 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 (08/06/23) Strain of muscle(s) and tendon(s) of the rotator cuff of 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, initial encounter (08/06/23) Past Medical History (Last Updated 01/30/23 @ 13:53 by Loren Desouza DO) Cervical spine disease (~1994) Chickenpox (~1957) Chronic neck and back pain (~2003) Colon polyps (~2017) Encounter for subsequent annual wellness visit (AWV) in Medicare patient Fibroids (~1991) Foot pain (~2007) Hemorrhoids (~2017) Knee osteoarthritis Measles (~1958) Mumps (~1959) Optic disc cupping (~1992) Osteopenia (~2007) Osteoporosis Osteoporosis (~2015) Seasonal allergies Venous insufficiency (~2013) Past Surgical History (Last Reviewed 07/25/22 @ 15:46 by Juan Manuel Samano MD) Anesthesia History of appendectomy (~1963) History of section (~1980) History of section (~1988) History of hysterectomy (~1992) History of sinus surgery (~1990) History of surgical fusion joint (~2009) Visit Care Team Role Provider Type Loren Desouza DO Family Provider Physician Primary Care Provider Specialty: Family Practice Address: [address] [place] [address], [place] [address] Email: [email or web address] Attending Provider Advanced Tray Filler Referring Provider Specialty: Medical Wound Care Address: [address] [place] [address] Email: [email or web address] Physical Therapy Initial Evaluation PT-OP-A Visit Information Start: 08/05/23 15:32 Freq: Status: Active Protocol: Document 08/06/23 09:33 LEVAR (Rec: 08/06/23 11:18 SAK [id number]) Out-Patient Physical Therapy Visit Information Visit Information Visit Type Initial Evaluation Visit Start Time 09:45 Visit Stop Time 10:30 Total Visit Minutes 45 Visit Number 1 Evaluation Information Evaluation Date 08/06/23 Precautions Precautions osteoporosis, history cervical disc fusion 2013. PT-OP-B Current Condition Start: 08/05/23 15:32 Freq: Status: Active Protocol: Document 08/06/23 09:33 SAK (Rec: 08/06/23 11:18 SAK [id number]) Current Condition History of Current Condition Onset Date August 2022 Current Complaints 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 pain History of Current Condition doing side plank, felt and heard pop in 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, very painful, pain gradually mostly went away. Increased again after moving some awkward furniture 1 /month ago . Also felt bee sting type sensation while gardening and note redness and swelling upper arm recently. Denies N/ T. Pt right handed. Has appt with Dr. Logan 08/24/23. Has been doing exercises at home; wall slide, pendulum; pendulum feels good, wall slide can get painful . Reports lifting arm overhead painful, especially about chest level, has to use right UE to assist left overhead, and reports severe pain when lowering back down. Reports very sensitive to the touch, difficulty reaching overhead and behind back painful, getting dressed painful. Has a set of pulleys but not sure if doing correctly. Went to massage therapist last week and pain increased after. Prior Treatments and Tests x-ray 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 07/24/23: moderate GH and AC joint arthritis Future Testing and Treatments Planned Dr. 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 Current Functional Impairments (Reported) Functional Limitations- ADL's painful Functional Limitations- Work/School painful, difficulty reaching overhead and behind her back Unable to do Qigong PT-OP-F Manual Assessment Start: 08/05/23 15:32 Freq: Status: Active Protocol: Document 08/06/23 09:33 [facility] (Rec: 08/07/23 08:46 [facility] [id number]) Manual Assessments Joint Mobility Assessment Joint Mobility Assessment difficult to assess due to heavy guarding PT-OP-H Neuro Start: 08/05/23 15:32 Freq: Status: Active Protocol: Document 08/06/23 09:33 SAK (Rec: 08/07/23 08:46 SAK [id number]) Sensation Evaluation Gross Sensation Gross Sensation WNL PT-OP-J Posture/Palpation/Skin Start: 08/05/23 15:32 Freq: Status: Active Protocol: Document 08/06/23 09:33 SAK (Rec: 08/07/23 08:46 [facility] [id number]) Posture Evaluation Position Sitting Head/C-Spine Posture C-Spine Flattened Shoulder Posture (L) Rounded,(R) Rounded PT-OP-K Range of Motion Start: 08/05/23 15:32 Freq: Status: Active Protocol: Document 08/06/23 09:33 SAK (Rec: 08/07/23 08:46 [facility] [id number]) Shoulder Goniometric Range of Motion Shoulder Left Active Shoulder ROM WFL No Flexion 40 Extension 10 Abduction 35 External Rotation at 0 degrees Abduction 45 Internal Rotation Behind Back (text) L4 Right Shoulder ROM WFL Yes Shoulder ROM Limitations Shoulder ROM Limitations Pain Elbow/Forearm Range of Motion Elbow/Forearm tavares Elbow/Forearm ROM WFL Yes PT-OP-L Special Tests Start: 08/05/23 15:32 Freq: Status: Active Protocol: Document 08/06/23 09:33 SAK (Rec: 08/07/23 08:46 [facility] [id number]) Special Tests Shoulder Special Tests Speed's Biceps Test Results - Passive ER Rotator Cuff Test Results +L Drop Arm Rotator Cuff Test Results +L Belly Press Test Results + L PT-OP-M Strength Start: 08/05/23 15:32 Freq: Status: Active Protocol: Document 08/06/23 09:33 SAK (Rec: 08/07/23 08:46 [facility] [id number]) Shoulder Strength Shoulder Manual Muscle Testing Left Comments not tested due to severity of pain, less than anti-gravity strength Right Flexion 5 Normal Extension 5 Normal Abduction (C5) 5 Normal Adduction 5 Normal External Rotation 4 Good Internal Rotation 5 Normal PT-OP-Q Treatments Start: 08/05/23 15:32 Freq: Status: Active Protocol: Document 08/06/23 09:33 SAK (Rec: 08/07/23 08:48 [facility] [id number]) Manual Therapy Treatment Taping 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 Treatment Focus support, pain management Type of Tape Kinesio Tape Skin Inspection intact Comments instructed to remove if irritating, skin reaction. Otherwise can leave on up to 5 days. 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 Manager Product Marketing Goal (LTG) 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 LTG Duration 11/05/23 Three Impairment ROM limitations Impairment 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 elevation 45 deg AROM, 125 PROM Short Term Goal (STG) Improve AROM 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 elevation to at least 110 degrees with 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 Mcfp Goal (LTG) AROM elevation 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 to at least 155 deg with 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 to allow her to return to usual activities LTG Duration 11/05/23 Two Impairment Activity tolerance Impairment QuickDash UE disability index score 81% Short Term Goal (STG) Decrease Quickdash score to no greater than 50% as measure of improved activity tolerance with left UE STG Duration 09/27/23 Manager Product Marketing Goal (LTG) Decrease Quickdash score to no greater than 20% as measure of improved activity tolerance with left UE LTG Duration 11/05/23 One Impairment severe pain 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 with movement especially overhead and behind back Short Term Goal (STG) Decrease pain by at least 50% at rest STG Duration 09/27/23 Mcfp Goal (LTG) Decrease pain by at least 75% with all usual activities including ability to reach overhead and behind her back for ADL's and usual household activities. LTG Duration 11/05/23 Assessment Summary Assessment Patient presents to PT with severe function-limiting pain in her 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. Signs and symptoms plus special tests are positive for rotator cuff tear. High level or irritability of shoulder pain makes testing difficult. She is tender to palpation RC insertion along with positive special testing. 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 Feel she would benefit from PT to decrease her pain, improve her ROM, functional strength, and help her return to her functiona activities. At this time I would also recommend an MRI due to PT findings today. POC was discussed and patient was in agreement. Initiated treatment with instruction in gentle ROM exercises and application of kinesiotape 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. Patient to see Dr. Logan . Physical Therapy Plan Frequency and Duration Frequency of Treatment 2x/Week Duration of treatment (weeks) 8 Plan of Care Start Date 08/06/23 Plan of Care End Date 10/07/23 Therapeutic Interventions Therapeutic Interventions Home Exercise Program,Joint Mobilizations,Manual Therapy, Patient/Caregiver Education, Self-Care/Home Management,Soft Tissue Mobilization,Taping, Therapeutic Activities, Therapeutic Exercises Modalities Cold Pack/Ice Massage,Electric Stimulation,Hot Packs, Infrared Therapy Next Visit Focus/Plan Next Note Type Treatment Note Next Visit Plan Review HEP and response to kinesiotape. Gentle ex progression, cross friction massage, cold laser treatment or iotophoresis for pain relief. Ice and IFES.
--- NOTE | 2023-08-08 16:58 | PT.OTN ---
Current Diagnoses Primary osteoarthritis, 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 (08/08/23) Strain of muscle(s) and tendon(s) of the rotator cuff of 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, initial encounter (08/08/23) Physical Therapy Treatment Note PT-OP-A Visit Information Start: 08/05/23 15:32 Freq: Status: Active Protocol: Document 08/08/23 09:46 SAK (Rec: 08/08/23 10:33 [facility] [id number]) Out-Patient Physical Therapy Visit Information Visit Information Visit Type Treatment Note Visit Start Time 09:47 Visit Stop Time 10:42 Total Visit Minutes 55 Visit Number 2 Evaluation Information Evaluation Date 08/06/23 Precautions Precautions osteoporosis, history cervical disc fusion 2013. PT-OP-B Current Condition Start: 08/05/23 15:32 Freq: Status: Active Protocol: Document 08/08/23 09:46 SAK (Rec: 08/08/23 10:33 [facility] [id number]) Current Condition History of Current Condition Onset Date August 2022 Current Complaints 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 pain History of Current Condition doing side plank, felt and heard pop in 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, very painful, pain gradually mostly went away. Increased again after moving some awkward furniture 1 /month ago . Also felt bee sting type sensation while gardening and note redness and swelling upper arm recently. Denies N/ T. Pt right handed. Has appt with Dr. Logan 08/24/23. Has been doing exercises at home; wall slide, pendulum; pendulum feels good, wall slide can get painful . Reports lifting arm overhead painful, especially about chest level, has to use right UE to assist left overhead, and reports severe pain when lowering back down. Reports very sensitive to the touch, difficulty reaching overhead and behind back painful, getting dressed painful. Has a set of pulleys but not sure if doing correctly. Went to massage therapist last week and pain increased after. Prior Treatments and Tests x-ray 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 07/24/23: moderate GH and AC joint arthritis Future Testing and Treatments Planned Dr. Logan 08/24/23 Treatment Goals Patient/Caregiver Goals decrease shoulder pain, be able resume normal activity lvel PT-OP-C Subjective Start: 08/05/23 15:32 Freq: Status: Active Protocol: Document 08/08/23 09:46 SAK (Rec: 08/09/23 16:55 [facility] [id number]) OP-PT Subjective Patient Comments Patient Comments REmoved kinesiotape in middle of night due to inc pain, felt better after removal. Brought own TENS unit for instruction in use on shoulder (has used on other body part previously) PT-OP-F Manual Assessment Start: 08/05/23 15:32 Freq: Status: Active Protocol: Document 08/06/23 09:33 SAK (Rec: 08/07/23 08:46 [facility] [id number]) Manual Assessments Joint Mobility Assessment Joint Mobility Assessment difficult to assess due to heavy guarding PT-OP-H Neuro Start: 08/05/23 15:32 Freq: Status: Active Protocol: Document 08/06/23 09:33 SAK (Rec: 08/07/23 08:46 [facility] [id number]) Sensation Evaluation Gross Sensation Gross Sensation WNL PT-OP-J Posture/Palpation/Skin Start: 08/05/23 15:32 Freq: Status: Active Protocol: Document 08/06/23 09:33 SAK (Rec: 08/07/23 08:46 [facility] [id number]) Posture Evaluation Position Sitting Head/C-Spine Posture C-Spine Flattened Shoulder Posture (L) Rounded,(R) Rounded PT-OP-K Range of Motion Start: 08/05/23 15:32 Freq: Status: Active Protocol: Document 08/06/23 09:33 SAK (Rec: 08/07/23 08:46 [facility] [id number]) Shoulder Goniometric Range of Motion Shoulder Left Active Shoulder ROM WFL No Flexion 40 Extension 10 Abduction 35 External Rotation at 0 degrees Abduction 45 Internal Rotation Behind Back (text) L4 Right Shoulder ROM WFL Yes Shoulder ROM Limitations Shoulder ROM Limitations Pain Elbow/Forearm Range of Motion Elbow/Forearm tavares Elbow/Forearm ROM WFL Yes PT-OP-L Special Tests Start: 08/05/23 15:32 Freq: Status: Active Protocol: Document 08/06/23 09:33 SAK (Rec: 08/07/23 08:46 [facility] [id number]) Special Tests Shoulder Special Tests Speed's Biceps Test Results - Passive ER Rotator Cuff Test Results +L Drop Arm Rotator Cuff Test Results +L Belly Press Test Results + L PT-OP-M Strength Start: 08/05/23 15:32 Freq: Status: Active Protocol: Document 08/06/23 09:33 SAK (Rec: 08/07/23 08:46 [facility] [id number]) Shoulder Strength Shoulder Manual Muscle Testing Left Comments not tested due to severity of pain, less than anti-gravity strength Right Flexion 5 Normal Extension 5 Normal Abduction (C5) 5 Normal Adduction 5 Normal External Rotation 4 Good Internal Rotation 5 Normal PT-OP-Q Treatments Start: 08/05/23 15:32 Freq: Status: Active Protocol: Document 08/08/23 09:46 [facility] (Rec: 08/08/23 10:33 [facility] [id number]) Therapeutic Exercises Supine Exercises shld ER Supine Exercise Name IR also Side left Equipment Used wand Reps/Minutes 10x Comments pain-free ROM PROM 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 Supine Exercise Name all planes Side left Reps/Minutes 5-10x ea Comments gentle, pain-free ROM Sitting Exercises pulleys Sitting Exercise Name flex with elbow bent Side left Reps/Minutes 10x Comments PT light support under elbow, cues for breathing, dec UT activation scap retr Side bilateral Reps/Minutes 5x5 shld shrugs Side bilateral Reps/Minutes 5x5 Shoulder ER Equipment Used bar Reps/Minutes 10x Comments cues for pain-free ROM trunk rotation Reps/Minutes 2x Comments with deep breathing, reach across opp knee Standing Exercises shoulder jossy Equipment Used towel Reps/Minutes 3x ea motion Comments cues for dec UT, pain-free intensity pendulum Side bilateral Reps/Minutes 10 x Comments patient bending forward at waist doing tavares hang Manual Therapy Treatment Soft Tissue Mobilization UT Mobilization Type Myofascial Release,Sustained Pressure RC insertion Mobilization Type Cross-Friction Intensity/Depth Moderate Body Position Hooklying Taping 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 Comments requested no tape Self-Care/Home Management Treatment Education Patient Education Home Exercise Program,Pain Management Other Education updated HEP handout educated patient in use of her TENS unit for shoulder pain (pt brought own unit in, hadn' t used for shoulder) Activities Self-Care/Home Management Activities ice, use of TENS PT-OP-R Modalities Start: 08/05/23 15:32 Freq: Status: Active Protocol: Document 08/08/23 09:46 [facility] (Rec: 08/09/23 16:51 [facility] [id number]) Hot Pack/Cold Pack Treatment ice pack Location 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 Patient Position Hooklying Treatment Duration (minutes) 10 Comments with use of pt TENS unit after instruction PT-OP-T Assessment and Plan Start: 08/05/23 15:32 Freq: Status: Active Protocol: Document 08/08/23 09:46 [facility] (Rec: 08/09/23 16:55 [facility] [id number]) Physical Therapy Assessment Impairments Impairments Activity Tolerance,Pain,ROM, Soft Tissue Mobility,Strength Goals 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 [facility] Goal (LTG) 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 LTG Duration 11/05/23 Three Impairment ROM limitations Impairment 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 elevation 45 deg AROM, 125 PROM Short Term Goal (STG) Improve AROM 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 elevation to at least 110 degrees with 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 [facility] Goal (LTG) AROM elevation 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 to at least 155 deg with 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 to allow her to return to usual activities LTG Duration 11/05/23 Two Impairment Activity tolerance Impairment QuickDash UE disability index score 81% Short Term Goal (STG) Decrease Quickdash score to no greater than 50% as measure of improved activity tolerance with left UE STG Duration 09/27/23 [facility] Goal (LTG) Decrease Quickdash score to no greater than 20% as measure of improved activity tolerance with left UE LTG Duration 11/05/23 One Impairment severe pain 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 with movement especially overhead and behind back Short Term Goal (STG) Decrease pain by at least 50% at rest STG Duration 09/27/23 Bird Keeper Goal (LTG) Decrease pain by at least 75% with all usual activities including ability to reach overhead and behind her back for ADL's and usual household activities. LTG Duration 11/05/23 Assessment Summary Assessment Gentle progression of HEP with emphasis on pain-free ROM, breathing through exercises to dec muscular tension and guarding. Demonstrated good understanding and was issued handout. Symptoms very irritable. Poor tolerance to kinesiotape. Trial iontophoresis 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 today. Physical Therapy Plan Frequency and Duration Frequency of Treatment 2x/Week Duration of treatment (weeks) 8 Plan of Care Start Date 08/06/23 Plan of Care End Date 10/07/23 Therapeutic Interventions Therapeutic Interventions Home Exercise Program,Joint Mobilizations,Manual Therapy, Patient/Caregiver Education, Self-Care/Home Management,Soft Tissue Mobilization,Taping, Therapeutic Activities, Therapeutic Exercises Modalities Cold Pack/Ice Massage,Electric Stimulation,Hot Packs, Infrared Therapy Next Visit Focus/Plan Next Note Type Treatment Note Next Visit Plan Review HEP and response to iontophoresis. Gentle ex progression, cross friction massage. Consider ultrasound. Ice and IFES.
--- NOTE | 2023-08-13 13:48 | PT.OTN ---
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 PT-OP-B Current Condition Start: 08/05/23 15:32 Freq: Status: Active Protocol: Document 08/08/23 09:46 SAK (Rec: 08/08/23 10:33 SAK [id number]) Current Condition History of Current Condition Onset Date August 2022 Current Complaints 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 pain History of Current Condition doing side plank, felt and heard pop in 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, very painful, pain gradually mostly went away. Increased again after moving some awkward furniture 1 /month ago . Also felt bee sting type sensation while gardening and note redness and swelling upper arm recently. Denies N/ T. Pt right handed. Has appt with Dr. Logan 08/24/23. Has been doing exercises at home; wall slide, pendulum; pendulum feels good, wall slide can get painful . Reports lifting arm overhead painful, especially about chest level, has to use right UE to assist left overhead, and reports severe pain when lowering back down. Reports very sensitive to the touch, difficulty reaching overhead and behind back painful, getting dressed painful. Has a set of pulleys but not sure if doing correctly. Went to massage therapist last week and pain increased after. Prior Treatments and Tests x-ray 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 07/24/23: moderate GH and AC joint arthritis Future Testing and Treatments Planned Dr. Logan 08/24/23 Treatment Goals Patient/Caregiver Goals decrease shoulder pain, be able resume normal activity lvel PT-OP-C Subjective Start: 08/05/23 15:32 Freq: Status: Active Protocol: Document 08/13/23 13:01 NBM (Rec: 08/13/23 13:48 [facility] [id number]) OP-PT Subjective Patient Comments Patient Comments Leisa reports she thinks she is getting better. She still has some difficulty with getting her coat off and on. Her last visit with Ania was so helpful to be more gentle instead of push through pain. PT-OP-F Manual Assessment Start: 08/05/23 15:32 Freq: Status: Active Protocol: Document 08/06/23 09:33 SAK (Rec: 08/07/23 08:46 SAK [id number]) Manual Assessments Joint Mobility Assessment Joint Mobility Assessment difficult to assess due to heavy guarding PT-OP-H Neuro Start: 08/05/23 15:32 Freq: Status: Active Protocol: Document 08/06/23 09:33 SAK (Rec: 08/07/23 08:46 SAK [id number]) Sensation Evaluation Gross Sensation Gross Sensation WNL PT-OP-J Posture/Palpation/Skin Start: 08/05/23 15:32 Freq: Status: Active Protocol: Document 08/06/23 09:33 SAK (Rec: 08/07/23 08:46 SAK [id number]) Posture Evaluation Position Sitting Head/C-Spine Posture C-Spine Flattened Shoulder Posture (L) Rounded,(R) Rounded PT-OP-K Range of Motion Start: 08/05/23 15:32 Freq: Status: Active Protocol: Document 08/06/23 09:33 SAK (Rec: 08/07/23 08:46 SAK [id number]) Shoulder Goniometric Range of Motion Shoulder Left Active Shoulder ROM WFL No Flexion 40 Extension 10 Abduction 35 External Rotation at 0 degrees Abduction 45 Internal Rotation Behind Back (text) L4 Right Shoulder ROM WFL Yes Shoulder ROM Limitations Shoulder ROM Limitations Pain Elbow/Forearm Range of Motion Elbow/Forearm tavares Elbow/Forearm ROM WFL Yes PT-OP-L Special Tests Start: 08/05/23 15:32 Freq: Status: Active Protocol: Document 08/06/23 09:33 SAK (Rec: 08/07/23 08:46 SAK [id number]) Special Tests Shoulder Special Tests Speed's Biceps Test Results - Passive ER Rotator Cuff Test Results +L Drop Arm Rotator Cuff Test Results +L Belly Press Test Results + L PT-OP-M Strength Start: 08/05/23 15:32 Freq: Status: Active Protocol: Document 08/06/23 09:33 SAK (Rec: 08/07/23 08:46 SAK [id number]) Shoulder Strength Shoulder Manual Muscle Testing Left Comments not tested due to severity of pain, less than anti-gravity strength Right Flexion 5 Normal Extension 5 Normal Abduction (C5) 5 Normal Adduction 5 Normal External Rotation 4 Good Internal Rotation 5 Normal PT-OP-Q Treatments Start: 08/05/23 15:32 Freq: Status: Active Protocol: Document 08/13/23 13:01 NB (Rec: 08/13/23 13:48 NB [id number]) Therapeutic Exercises Supine Exercises shld ER Supine Exercise Name IR also Side left Equipment Used wand Reps/Minutes 10x Comments pain-free ROM Sitting Exercises pulleys Sitting Exercise Name flex with elbow bent Side left Reps/Minutes 10x Comments PT light support under elbow, cues for breathing, dec UT activation scap retr Side bilateral Reps/Minutes 5x5 shld shrugs Side bilateral Reps/Minutes 5x5 Comments focus on breath and full relaxation between reps Shoulder ER Side left Equipment Used dowel Reps/Minutes 10x Comments cues for initial scap setting, chin tuck, pain-free ROM trunk rotation Side bilateral Reps/Minutes 2x 5SH ea Comments with deep breathing, reach across opp knee Standing Exercises shoulder jossy Standing Exercise Name flex, ext, IR, ER Equipment Used towel Reps/Minutes 3x ea motion Comments cues for decrease UT pendulum Side bilateral Reps/Minutes 10 x Comments patient bending forward at waist doing tavares hang Self-Care/Home Management Treatment Education Patient Education Home Exercise Program,Pain Management Other Education Pt provided HO from last visit w/ seated trunk rotation and supine shoulder ER w/ dowel. Education of Trapezius mm and Rhomboid mm anatomy with visual aids and scapular setting with all ex's. 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 LTG Duration 11/05/23 Three Impairment ROM limitations Impairment 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 elevation 45 deg AROM, 125 PROM Short Term Goal (STG) Improve AROM 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 elevation to at least 110 degrees with 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 Copy Camera Operator Goal (LTG) AROM elevation 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 to at least 155 deg with 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 to allow her to return to usual activities LTG Duration 11/05/23 Two Impairment Activity tolerance Impairment QuickDash UE disability index score 81% Short Term Goal (STG) Decrease Quickdash score to no greater than 50% as measure of improved activity tolerance with left UE STG Duration 09/27/23 Custodial Goal (LTG) Decrease Quickdash score to no greater than 20% as measure of improved activity tolerance with left UE LTG Duration 11/05/23 One Impairment severe pain 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 with movement especially overhead and behind back Short Term Goal (STG) Decrease pain by at least 50% at rest STG Duration 09/27/23 Custodial Goal (LTG) Decrease pain by at least 75% with all usual activities including ability to reach overhead and behind her back for ADL's and usual household activities. LTG Duration 11/05/23 Assessment Summary Assessment Pt demonstrates improved self- awareness of UT overactivation . She requires initial tactile cues for appropriate scapular setting with seated ex's but demonstrates improved carryover during treatment. Pt 's pain-free L shoulder ER ROM increases visibly with each AAROM repetition. Education of Trapezius mm and Rhomboid mm anatomy with visual aids and scapular setting with all ex's . Pt provided HO from last visit w/ seated trunk rotation and supine shoulder ER w/ dowel. Physical Therapy Plan Frequency and Duration Frequency of Treatment 2x/Week Duration of treatment (weeks) 8 Plan of Care Start Date 08/06/23 Plan of Care End Date 10/07/23 Therapeutic Interventions Therapeutic Interventions Home Exercise Program,Joint Mobilizations,Manual Therapy, Patient/Caregiver Education, Self-Care/Home Management,Soft Tissue Mobilization,Taping, Therapeutic Activities, Therapeutic Exercises Modalities Cold Pack/Ice Massage,Electric Stimulation,Hot Packs, Infrared Therapy Next Visit Focus/Plan Next Note Type Treatment Note Next Visit Plan Review HEP and response to iontophoresis. Gentle ex progression, cross friction massage. Consider ultrasound. Ice and IFES.
--- NOTE | 2023-08-15 16:00 | PT.OTN ---
Current Diagnoses Primary osteoarthritis, 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 (08/15/23) Strain of muscle(s) and tendon(s) of the rotator cuff of 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, initial encounter (08/15/23) Physical Therapy Treatment Note PT-OP-A Visit Information Start: 08/05/23 15:32 Freq: Status: Active Protocol: Document 08/15/23 09:01 SAK (Rec: 08/15/23 09:48 [facility] [id number]) Out-Patient Physical Therapy Visit Information Visit Information Visit Type Treatment Note Visit Start Time 09:02 Visit Stop Time 09:56 Total Visit Minutes 54 Visit Number 4 Number of RECREATION THERAPIST Visits 0 Evaluation Information Evaluation Date 08/06/23 Precautions Precautions osteoporosis, history cervical disc fusion 2013. PT-OP-B Current Condition Start: 08/05/23 15:32 Freq: Status: Active Protocol: Document 08/08/23 09:46 SAK (Rec: 08/08/23 10:33 SAK [id number]) Current Condition History of Current Condition Onset Date August 2022 Current Complaints 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 pain History of Current Condition doing side plank, felt and heard pop in 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, very painful, pain gradually mostly went away. Increased again after moving some awkward furniture 1 /month ago . Also felt bee sting type sensation while gardening and note redness and swelling upper arm recently. Denies N/ T. Pt right handed. Has appt with Dr. Logan 08/24/23. Has been doing exercises at home; wall slide, pendulum; pendulum feels good, wall slide can get painful . Reports lifting arm overhead painful, especially about chest level, has to use right UE to assist left overhead, and reports severe pain when lowering back down. Reports very sensitive to the touch, difficulty reaching overhead and behind back painful, getting dressed painful. Has a set of pulleys but not sure if doing correctly. Went to massage therapist last week and pain increased after. Prior Treatments and Tests x-ray 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 07/24/23: moderate GH and AC joint arthritis Future Testing and Treatments Planned Dr. Logan 08/24/23 Treatment Goals Patient/Caregiver Goals decrease shoulder pain, be able resume normal activity lvel PT-OP-C Subjective Start: 08/05/23 15:32 Freq: Status: Active Protocol: Document 08/15/23 09:01 SAK (Rec: 08/15/23 09:48 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 Able to use both UE's to wash her hair in shower today. Has to be careful but sees improvement. Patient Reported Progress Improving PT-OP-F Manual Assessment Start: 08/05/23 15:32 Freq: Status: Active Protocol: Document 08/06/23 09:33 SAK (Rec: 08/07/23 08:46 [facility] [id number]) Manual Assessments Joint Mobility Assessment Joint Mobility Assessment difficult to assess due to heavy guarding PT-OP-H Neuro Start: 08/05/23 15:32 Freq: Status: Active Protocol: Document 08/06/23 09:33 SAK (Rec: 08/07/23 08:46 [facility] [id number]) Sensation Evaluation Gross Sensation Gross Sensation WNL PT-OP-J Posture/Palpation/Skin Start: 08/05/23 15:32 Freq: Status: Active Protocol: Document 08/06/23 09:33 SAK (Rec: 08/07/23 08:46 [facility] [id number]) Posture Evaluation Position Sitting Head/C-Spine Posture C-Spine Flattened Shoulder Posture (L) Rounded,(R) Rounded PT-OP-K Range of Motion Start: 08/05/23 15:32 Freq: Status: Active Protocol: Document 08/06/23 09:33 SAK (Rec: 08/07/23 08:46 [facility] [id number]) Shoulder Goniometric Range of Motion Shoulder Left Active Shoulder ROM WFL No Flexion 40 Extension 10 Abduction 35 External Rotation at 0 degrees Abduction 45 Internal Rotation Behind Back (text) L4 Right Shoulder ROM WFL Yes Shoulder ROM Limitations Shoulder ROM Limitations Pain Elbow/Forearm Range of Motion Elbow/Forearm tavares Elbow/Forearm ROM WFL Yes PT-OP-L Special Tests Start: 08/05/23 15:32 Freq: Status: Active Protocol: Document 08/06/23 09:33 SAK (Rec: 08/07/23 08:46 [facility] [id number]) Special Tests Shoulder Special Tests Speed's Biceps Test Results - Passive ER Rotator Cuff Test Results +L Drop Arm Rotator Cuff Test Results +L Belly Press Test Results + L PT-OP-M Strength Start: 08/05/23 15:32 Freq: Status: Active Protocol: Document 08/06/23 09:33 [facility] (Rec: 08/07/23 08:46 [facility] [id number]) Shoulder Strength Shoulder Manual Muscle Testing Left Comments not tested due to severity of pain, less than anti-gravity strength Right Flexion 5 Normal Extension 5 Normal Abduction (C5) 5 Normal Adduction 5 Normal External Rotation 4 Good Internal Rotation 5 Normal PT-OP-Q Treatments Start: 08/05/23 15:32 Freq: Status: Active Protocol: Document 08/15/23 09:01 [facility] (Rec: 08/16/23 10:23 [facility] [id number]) Therapeutic Exercises Sidelying Exercises shoulder flex Reps/Minutes 5x Comments manual for GH flex and upward scap rotation shoulder abd Comments discontinued, painful scapular clock Sidelying Exercise Name 3,4,5:00 Resistance manual Reps/Minutes 5x 5 ea Comments verbal and tactile cues Sitting Exercises pulleys Sitting Exercise Name flex with elbow bent Side left Reps/Minutes 10x Comments PT light support under elbow, cues for breathing, dec UT activation scap retr Side bilateral Equipment Used mirror for visual feedback Reps/Minutes 5x5 shld shrugs Side bilateral Reps/Minutes 5x5 Comments focus on breath and full relaxation between reps Shoulder ER Side left Reps/Minutes 10x Comments cues for initial scap setting, chin tuck, pain-free ROM trunk rotation Side bilateral Reps/Minutes 2x 5SH ea Comments with deep breathing, reach across opp knee Standing Exercises shoulder jossy Comments review again next session PRN Manual Therapy Treatment Soft Tissue Mobilization UT Mobilization Type Myofascial Release,Sustained Pressure RC insertion Mobilization Type Cross-Friction Intensity/Depth Moderate Body Position Hooklying Joint Mobilizations scapula Direction protr,retr, sup,inf Body Position Sidelying Reps/Duration 3x ea Self-Care/Home Management Treatment Education Patient Education Home Exercise Program,Pain Management Other Education initial education regarding importance of scapular rotation with shoulder elevation, unable to show picture due to computer issues . PT-OP-R Modalities Start: 08/05/23 15:32 Freq: Status: Active Protocol: Document 08/15/23 09:01 [facility] (Rec: 08/16/23 10:23 [facility] [id number]) Hot Pack/Cold Pack Treatment ice pack Location 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 Patient Position Hooklying Treatment Duration (minutes) 10 Patient Tolerance Good PT-OP-T Assessment and Plan Start: 08/05/23 15:32 Freq: Status: Active Protocol: Document 08/15/23 09:01 [facility] (Rec: 08/15/23 09:48 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 LTG Duration 11/05/23 Three Impairment ROM limitations Impairment 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 elevation 45 deg AROM, 125 PROM Short Term Goal (STG) Improve AROM 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 elevation to at least 110 degrees with 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 Senior Living Goal (LTG) AROM elevation 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 to at least 155 deg with 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 to allow her to return to usual activities LTG Duration 11/05/23 Two Impairment Activity tolerance Impairment QuickDash UE disability index score 81% Short Term Goal (STG) Decrease Quickdash score to no greater than 50% as measure of improved activity tolerance with left UE STG Duration 09/27/23 Senior Living Goal (LTG) Decrease Quickdash score to no greater than 20% as measure of improved activity tolerance with left UE LTG Duration 11/05/23 One Impairment severe pain 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 with movement especially overhead and behind back Short Term Goal (STG) Decrease pain by at least 50% at rest STG Duration 09/27/23 Senior Living Goal (LTG) Decrease pain by at least 75% with all usual activities including ability to reach overhead and behind her back for ADL's and usual household activities. LTG Duration 11/05/23 Progress Towards Goals Progress Towards Goals Progressing Toward Goals Assessment Summary Assessment Good improvement as noted above, decreased shoulder pain pressure into PT hand with lowering left UE after elevation with pulleys. Education in importance of upward scapular rotation with shoulder elevation, unable to show on computer due to technical issues. Gentle progression of ther ex today and scapular mobilizaiton and scapular clocks with good tolerance. Physical Therapy Plan Frequency and Duration Frequency of Treatment 2x/Week Duration of treatment (weeks) 8 Plan of Care Start Date 08/06/23 Plan of Care End Date 10/07/23 Therapeutic Interventions Therapeutic Interventions Home Exercise Program,Joint Mobilizations,Manual Therapy, Patient/Caregiver Education, Self-Care/Home Management,Soft Tissue Mobilization,Taping, Therapeutic Activities, Therapeutic Exercises Modalities Cold Pack/Ice Massage,Electric Stimulation,Hot Packs, Infrared Therapy Next Visit Focus/Plan Next Note Type Treatment Note Next Visit Plan Continue gentle ther ex progression, cross friction massage. Iontophoresis as needed. Show picture of scapulohumeral rhythm for further reinforcement of scapular mechanics
--- NOTE | 2023-08-22 15:23 | PT.OTN ---
Current Diagnoses Primary osteoarthritis, 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 (08/22/23) Strain of muscle(s) and tendon(s) of the rotator cuff of 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, initial encounter (08/22/23) Physical Therapy Treatment Note PT-OP-A Visit Information Start: 08/05/23 15:32 Freq: Status: Active Protocol: Document 08/22/23 14:32 SP (Rec: 08/22/23 16:09 SP [id number]) Out-Patient Physical Therapy Visit Information Visit Information Visit Type Treatment Note Visit Start Time 14:32 Visit Stop Time 15:23 Total Visit Minutes 51 Visit Number 5 Number of CLIENT ANALYST Visits 1 Evaluation Information Evaluation Date 08/06/23 Precautions Precautions osteoporosis, history cervical disc fusion 2013. PT-OP-B Current Condition Start: 08/05/23 15:32 Freq: Status: Active Protocol: Document 08/08/23 09:46 SAK (Rec: 08/08/23 10:33 SAK [id number]) Current Condition History of Current Condition Onset Date August 2022 Current Complaints 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 pain History of Current Condition doing side plank, felt and heard pop in 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, very painful, pain gradually mostly went away. Increased again after moving some awkward furniture 1 /month ago . Also felt bee sting type sensation while gardening and note redness and swelling upper arm recently. Denies N/ T. Pt right handed. Has appt with Dr. Logan 08/24/23. Has been doing exercises at home; wall slide, pendulum; pendulum feels good, wall slide can get painful . Reports lifting arm overhead painful, especially about chest level, has to use right UE to assist left overhead, and reports severe pain when lowering back down. Reports very sensitive to the touch, difficulty reaching overhead and behind back painful, getting dressed painful. Has a set of pulleys but not sure if doing correctly. Went to massage therapist last week and pain increased after. Prior Treatments and Tests x-ray 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 07/24/23: moderate GH and AC joint arthritis Future Testing and Treatments Planned Dr. Logan 08/24/23 Treatment Goals Patient/Caregiver Goals decrease shoulder pain, be able resume normal activity lvel PT-OP-C Subjective Start: 08/05/23 15:32 Freq: Status: Active Protocol: Document 08/22/23 14:32 SP (Rec: 08/22/23 16:09 SP [id number]) OP-PT Subjective Patient Comments Patient Comments Pt reports saw Ortho Dr Triston Logan at [facility]. States doing well with HEP. PT-OP-F Manual Assessment Start: 08/05/23 15:32 Freq: Status: Active Protocol: Document 08/06/23 09:33 SAK (Rec: 08/07/23 08:46 SAK [id number]) Manual Assessments Joint Mobility Assessment Joint Mobility Assessment difficult to assess due to heavy guarding PT-OP-H Neuro Start: 08/05/23 15:32 Freq: Status: Active Protocol: Document 08/06/23 09:33 SAK (Rec: 08/07/23 08:46 SAK [id number]) Sensation Evaluation Gross Sensation Gross Sensation WNL PT-OP-J Posture/Palpation/Skin Start: 08/05/23 15:32 Freq: Status: Active Protocol: Document 08/06/23 09:33 SAK (Rec: 08/07/23 08:46 SAK [id number]) Posture Evaluation Position Sitting Head/C-Spine Posture C-Spine Flattened Shoulder Posture (L) Rounded,(R) Rounded PT-OP-K Range of Motion Start: 08/05/23 15:32 Freq: Status: Active Protocol: Document 08/06/23 09:33 SAK (Rec: 08/07/23 08:46 SAK [id number]) Shoulder Goniometric Range of Motion Shoulder Left Active Shoulder ROM WFL No Flexion 40 Extension 10 Abduction 35 External Rotation at 0 degrees Abduction 45 Internal Rotation Behind Back (text) L4 Right Shoulder ROM WFL Yes Shoulder ROM Limitations Shoulder ROM Limitations Pain Elbow/Forearm Range of Motion Elbow/Forearm tavares Elbow/Forearm ROM WFL Yes PT-OP-L Special Tests Start: 08/05/23 15:32 Freq: Status: Active Protocol: Document 08/06/23 09:33 SAK (Rec: 08/07/23 08:46 SAK [id number]) Special Tests Shoulder Special Tests Speed's Biceps Test Results - Passive ER Rotator Cuff Test Results +L Drop Arm Rotator Cuff Test Results +L Belly Press Test Results + L PT-OP-M Strength Start: 08/05/23 15:32 Freq: Status: Active Protocol: Document 08/06/23 09:33 SAK (Rec: 08/07/23 08:46 SAK [id number]) Shoulder Strength Shoulder Manual Muscle Testing Left Comments not tested due to severity of pain, less than anti-gravity strength Right Flexion 5 Normal Extension 5 Normal Abduction (C5) 5 Normal Adduction 5 Normal External Rotation 4 Good Internal Rotation 5 Normal PT-OP-Q Treatments Start: 08/05/23 15:32 Freq: Status: Active Protocol: Document 08/22/23 14:32 SP (Rec: 08/22/23 16:09 SP [id number]) Therapeutic Exercises Supine Exercises shld ER Supine Exercise Name IR also Side left Equipment Used wand Reps/Minutes 10x Comments pain-free ROM PROM 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 Supine Exercise Name all planes Side left Reps/Minutes 5-10x ea Comments gentle, pain-free ROM Sidelying Exercises ER Sidelying Exercise Name added to HEP Side left Resistance AROM Equipment Used towel roll under arm Reps/Minutes 8 reps shoulder flex Resistance PROM>AAROM, Reps/Minutes 5x Comments pain at 30* GH flex, cue /c SA Press when needed 30* & upward scap rotation shoulder abd Sidelying Exercise Name tolerant up to 90 deg Resistance PROM ok, AAROM Comments painful >90 deg, man AAROM /c SA Press needed scapular clock Sidelying Exercise Name 3,4,5:00 (L arm draped on side ) Side left Resistance manual/AAROM Reps/Minutes 5x 5 ea Comments verbal and tactile cues Sitting Exercises UT, LS stretching Resistance L>R Reps/Minutes 30each Comments discussed a self stretch has done for past, assist dec tension UT recruit pulleys Sitting Exercise Name flex, scap, abd- HEP reviewed Side left Reps/Minutes 10x each Comments Cued elbow straight, level shld, cues for breathing, dec UT activation Standing Exercises shoulder jossy Comments review again next session PRN pendulum Standing Exercise Name Discussed/not performed 08/22 performs self home Side bilateral Reps/Minutes 10 x Comments patient bending forward at waist doing tavares hang, ed opp UE on table Manual Therapy Treatment Soft Tissue Mobilization UT Body Location L Mobilization Type Myofascial Release,Sustained Pressure Intensity/Depth Moderate Body Position Sidelying RC insertion Body Location L suprasp, infrasp, Teres Mobilization Type Cross-Friction Intensity/Depth Moderate Body Position Sidelying Joint Mobilizations scapula Joint L Direction protr,retr, sup,inf Body Position Sidelying Reps/Duration 3x ea Comments PROM, AAROM clocks, MWM abd/FF . 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 Living 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 (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) 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 LTG Duration 11/05/23 Three Impairment ROM limitations Impairment 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 elevation 45 deg AROM, 125 PROM Short Term Goal (STG) Improve AROM 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 elevation to at least 110 degrees with 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 Senior Living Goal (LTG) AROM elevation 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 to at least 155 deg with 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 to allow her to return to usual activities LTG Duration 11/05/23 Two Impairment Activity tolerance Impairment QuickDash UE disability index score 81% Short Term Goal (STG) Decrease Quickdash score to no greater than 50% as measure of improved activity tolerance with left UE STG Duration 09/27/23 Accounting Coordinator Goal (LTG) Decrease Quickdash score to no greater than 20% as measure of improved activity tolerance with left UE LTG Duration 11/05/23 One Impairment severe pain 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 with movement especially overhead and behind back Short Term Goal (STG) Decrease pain by at least 50% at rest STG Duration 09/27/23 Senior Living Goal (LTG) Decrease pain by at least 75% with all usual activities including ability to reach overhead and behind her back for ADL's and usual household activities. LTG Duration 11/05/23 Assessment Summary Assessment Pt good feedback scapular ROM with tactile/VCs, improved understanding proper form with rhomboid and LT facilitation with scapular ROM this tx with carryover use of mirror and level shld to lessen UT recruitment with improved FF/ Scaption/ ABD ROM (not measured) with reduction in impingement. Physical Therapy Plan Frequency and Duration Frequency of Treatment 2x/Week Duration of treatment (weeks) 8 Plan of Care Start Date 08/06/23 Plan of Care End Date 10/07/23 Therapeutic Interventions Therapeutic Interventions Home Exercise Program,Joint Mobilizations,Manual Therapy, Patient/Caregiver Education, Self-Care/Home Management,Soft Tissue Mobilization,Taping, Therapeutic Activities, Therapeutic Exercises Modalities Cold Pack/Ice Massage,Electric Stimulation,Hot Packs, Infrared Therapy Next Visit Focus/Plan Next Note Type Treatment Note Next Visit Plan Continue gentle ther ex progression, cross friction massage. Iontophoresis as needed. Show picture of scapulohumeral rhythm for further reinforcement of scapular mechanics
--- NOTE | 2023-08-24 09:30 | PT.OTN ---
Current Diagnoses Primary osteoarthritis, 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 (08/24/23) Strain of muscle(s) and tendon(s) of the rotator cuff of 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, initial encounter (08/24/23) Physical Therapy Treatment Note PT-OP-A Visit Information Start: 08/05/23 15:32 Freq: Status: Active Protocol: Document 08/24/23 08:17 SP (Rec: 08/24/23 09:47 SP [id number]) Out-Patient Physical Therapy Visit Information Visit Information Visit Type Treatment Note Visit Start Time 08:30 Visit Stop Time 09:30 Total Visit Minutes 60 Visit Number 6 Number of NETWORK ANALYST Visits 2 Evaluation Information Evaluation Date 08/06/23 Precautions Precautions osteoporosis, history cervical disc fusion 2013. PT-OP-B Current Condition Start: 08/05/23 15:32 Freq: Status: Active Protocol: Document 08/08/23 09:46 SAK (Rec: 08/08/23 10:33 SAK [id number]) Current Condition History of Current Condition Onset Date August 2022 Current Complaints 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 pain History of Current Condition doing side plank, felt and heard pop in 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, very painful, pain gradually mostly went away. Increased again after moving some awkward furniture 1 /month ago . Also felt bee sting type sensation while gardening and note redness and swelling upper arm recently. Denies N/ T. Pt right handed. Has appt with Dr. Logan 08/24/23. Has been doing exercises at home; wall slide, pendulum; pendulum feels good, wall slide can get painful . Reports lifting arm overhead painful, especially about chest level, has to use right UE to assist left overhead, and reports severe pain when lowering back down. Reports very sensitive to the touch, difficulty reaching overhead and behind back painful, getting dressed painful. Has a set of pulleys but not sure if doing correctly. Went to massage therapist last week and pain increased after. Prior Treatments and Tests x-ray 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 07/24/23: moderate GH and AC joint arthritis Future Testing and Treatments Planned Dr. Logan 08/24/23 Treatment Goals Patient/Caregiver Goals decrease shoulder pain, be able resume normal activity lvel PT-OP-C Subjective Start: 08/05/23 15:32 Freq: Status: Active Protocol: Document 08/24/23 08:17 SP (Rec: 08/24/23 09:47 SP [id number]) OP-PT Subjective Patient Comments Patient Comments Pt 15 min late for appt, thought appt was at 830. PT-OP-F Manual Assessment Start: 08/05/23 15:32 Freq: Status: Active Protocol: Document 08/06/23 09:33 SAK (Rec: 08/07/23 08:46 SAK [id number]) Manual Assessments Joint Mobility Assessment Joint Mobility Assessment difficult to assess due to heavy guarding PT-OP-H Neuro Start: 08/05/23 15:32 Freq: Status: Active Protocol: Document 08/06/23 09:33 SAK (Rec: 08/07/23 08:46 SAK [id number]) Sensation Evaluation Gross Sensation Gross Sensation WNL PT-OP-J Posture/Palpation/Skin Start: 08/05/23 15:32 Freq: Status: Active Protocol: Document 08/06/23 09:33 SAK (Rec: 08/07/23 08:46 SAK [id number]) Posture Evaluation Position Sitting Head/C-Spine Posture C-Spine Flattened Shoulder Posture (L) Rounded,(R) Rounded PT-OP-K Range of Motion Start: 08/05/23 15:32 Freq: Status: Active Protocol: Document 08/06/23 09:33 SAK (Rec: 08/07/23 08:46 SAK [id number]) Shoulder Goniometric Range of Motion Shoulder Left Active Shoulder ROM WFL No Flexion 40 Extension 10 Abduction 35 External Rotation at 0 degrees Abduction 45 Internal Rotation Behind Back (text) L4 Right Shoulder ROM WFL Yes Shoulder ROM Limitations Shoulder ROM Limitations Pain Elbow/Forearm Range of Motion Elbow/Forearm tavares Elbow/Forearm ROM WFL Yes PT-OP-L Special Tests Start: 08/05/23 15:32 Freq: Status: Active Protocol: Document 08/06/23 09:33 SAK (Rec: 08/07/23 08:46 SAK [id number]) Special Tests Shoulder Special Tests Speed's Biceps Test Results - Passive ER Rotator Cuff Test Results +L Drop Arm Rotator Cuff Test Results +L Belly Press Test Results + L PT-OP-M Strength Start: 08/05/23 15:32 Freq: Status: Active Protocol: Document 08/06/23 09:33 SAK (Rec: 08/07/23 08:46 SAK [id number]) Shoulder Strength Shoulder Manual Muscle Testing Left Comments not tested due to severity of pain, less than anti-gravity strength Right Flexion 5 Normal Extension 5 Normal Abduction (C5) 5 Normal Adduction 5 Normal External Rotation 4 Good Internal Rotation 5 Normal PT-OP-Q Treatments Start: 08/05/23 15:32 Freq: Status: Active Protocol: Document 08/24/23 08:17 SP (Rec: 08/24/23 09:47 SP [id number]) Therapeutic Exercises Supine Exercises over noodle Supine Exercise Name 1. FF 2. HABD 3. serratus press Side bilateral Resistance AAROM wand, AROM rest Equipment Used over noodle Reps/Minutes 5 reps each Comments cued slow pacing mobility, good scapular UR and progress AA/AROM Sitting Exercises pulleys Sitting Exercise Name flex, scap, abd- HEP reviewed Side left Reps/Minutes 10x each Comments Cued elbow straight, level shld, cues for breathing, dec UT activation Standing Exercises wall posture Standing Exercise Name added to HEP Reps/Minutes 5 SH x5 Comments good head nod CS pos/arms side anatomical pos, NS CS/LS, Rhomb fac wall pushups Standing Exercise Name added to HEP Side bilateral Resistance AROM Reps/Minutes 2x5 reps Comments good CS, cues no LB arch aware - muscle tiring/pnfree IR / ER Standing Exercise Name trialed- hold- challenge CS and ant shld compensations Side left Resistance TB #1 Reps/Minutes x3 reps Comments anterior shld discomfort, hold for now, challenge scap stab with cues resisted ER Standing Exercise Name added to HEP Side bilateral Resistance TB #1 between BUEs Reps/Minutes 2x5 reps, 5 SH head turn x3 reps Comments good longus colli, little head /neck wobbly feeling but painfree/tiring resisted ext Standing Exercise Name added to HEP- better than rows , less/no bicep recruitment Side bilateral Resistance Tb #1 peach Reps/Minutes 2x5 reps Comments cued neutral CS, rhomboid fac Self-Care/Home Management Treatment Education Patient Education Body Mechanics,Home Exercise Program,Pain Management, Posture Other Education much ed anatomy shoulder complex and CS and mobility mechanics finding neutral to improved postural alignment during mobiltiy. 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 LTG Duration 11/05/23 Three Impairment ROM limitations Impairment 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 elevation 45 deg AROM, 125 PROM Short Term Goal (STG) Improve AROM 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 elevation to at least 110 degrees with 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 Radio Broadcaster Goal (LTG) AROM elevation 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 to at least 155 deg with 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 to allow her to return to usual activities LTG Duration 11/05/23 Two Impairment Activity tolerance Impairment QuickDash UE disability index score 81% Short Term Goal (STG) Decrease Quickdash score to no greater than 50% as measure of improved activity tolerance with left UE STG Duration 09/27/23 Radio Broadcaster Goal (LTG) Decrease Quickdash score to no greater than 20% as measure of improved activity tolerance with left UE LTG Duration 11/05/23 One Impairment severe pain 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 with movement especially overhead and behind back Short Term Goal (STG) Decrease pain by at least 50% at rest STG Duration 09/27/23 Radio Broadcaster Goal (LTG) Decrease pain by at least 75% with all usual activities including ability to reach overhead and behind her back for ADL's and usual household activities. LTG Duration 11/05/23 Assessment Summary Assessment Pt good response to HEP today, good CS longus colli/rhomboid /LT facilitation with less bicep and post neck recruitment this tx. Cues for TA as needed during supine noodle and wall posturing. States feels good CS and L shld tiring supported. Physical Therapy Plan Frequency and Duration Frequency of Treatment 2x/Week Duration of treatment (weeks) 8 Plan of Care Start Date 08/06/23 Plan of Care End Date 02/11/24 Therapeutic Interventions Therapeutic Interventions Home Exercise Program,Joint Mobilizations,Manual Therapy, Patient/Caregiver Education, Self-Care/Home Management,Soft Tissue Mobilization,Taping, Therapeutic Activities, Therapeutic Exercises Modalities Cold Pack/Ice Massage,Electric Stimulation,Hot Packs, Infrared Therapy Next Visit Focus/Plan Next Note Type Treatment Note Next Visit Plan Check added HEP TB, AROM over noodle, wall posture. POC: Continue gentle ther ex progression, cross friction massage. Iontophoresis as needed. Show picture of scapulohumeral rhythm for further reinforcement of scapular mechanics
--- NOTE | 2023-08-28 11:58 | PT.OTN ---
Current Diagnoses Primary osteoarthritis, 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 (08/28/23) Strain of muscle(s) and tendon(s) of the rotator cuff of 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, initial encounter (08/28/23) Physical Therapy Treatment Note PT-OP-A Visit Information Start: 08/05/23 15:32 Freq: Status: Active Protocol: Document 08/28/23 10:20 NBM (Rec: 08/28/23 11:57 NBM [id number]) Out-Patient Physical Therapy Visit Information Visit Information Visit Type Treatment Note Visit Start Time 10:33 Visit Stop Time 11:23 Total Visit Minutes 50 Visit Number 7 Number of BINGO CHECKER Visits 3 Evaluation Information Evaluation Date 08/06/23 Precautions Precautions osteoporosis, history cervical disc fusion 2013. PT-OP-B Current Condition Start: 08/05/23 15:32 Freq: Status: Active Protocol: Document 08/08/23 09:46 SAK (Rec: 08/08/23 10:33 SAK [id number]) Current Condition History of Current Condition Onset Date August 2022 Current Complaints 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 pain History of Current Condition doing side plank, felt and heard pop in 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, very painful, pain gradually mostly went away. Increased again after moving some awkward furniture 1 /month ago . Also felt bee sting type sensation while gardening and note redness and swelling upper arm recently. Denies N/ T. Pt right handed. Has appt with Dr. Logan 08/24/23. Has been doing exercises at home; wall slide, pendulum; pendulum feels good, wall slide can get painful . Reports lifting arm overhead painful, especially about chest level, has to use right UE to assist left overhead, and reports severe pain when lowering back down. Reports very sensitive to the touch, difficulty reaching overhead and behind back painful, getting dressed painful. Has a set of pulleys but not sure if doing correctly. Went to massage therapist last week and pain increased after. Prior Treatments and Tests x-ray 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 07/24/23: moderate GH and AC joint arthritis Future Testing and Treatments Planned Dr. Logan 08/24/23 Treatment Goals Patient/Caregiver Goals decrease shoulder pain, be able resume normal activity lvel PT-OP-C Subjective Start: 08/05/23 15:32 Freq: Status: Active Protocol: Document 08/28/23 10:20 NBM (Rec: 08/28/23 11:57 [facility] [id number]) OP-PT Subjective Patient Comments Patient Comments Leisa reports she forgot one of her pain pills meloxicam yesterday and noticed much pain and tightness and had to ice her shoulder last night. She also adopted a 15.2# dog and had to pick her up a lot. PT-OP-F Manual Assessment Start: 08/05/23 15:32 Freq: Status: Active Protocol: Document 08/06/23 09:33 SAK (Rec: 08/07/23 08:46 [facility] [id number]) Manual Assessments Joint Mobility Assessment Joint Mobility Assessment difficult to assess due to heavy guarding PT-OP-H Neuro Start: 08/05/23 15:32 Freq: Status: Active Protocol: Document 08/06/23 09:33 SAK (Rec: 08/07/23 08:46 [facility] [id number]) Sensation Evaluation Gross Sensation Gross Sensation WNL PT-OP-J Posture/Palpation/Skin Start: 08/05/23 15:32 Freq: Status: Active Protocol: Document 08/06/23 09:33 SAK (Rec: 08/07/23 08:46 [facility] [id number]) Posture Evaluation Position Sitting Head/C-Spine Posture C-Spine Flattened Shoulder Posture (L) Rounded,(R) Rounded PT-OP-K Range of Motion Start: 08/05/23 15:32 Freq: Status: Active Protocol: Document 08/06/23 09:33 SAK (Rec: 08/07/23 08:46 [facility] [id number]) Shoulder Goniometric Range of Motion Shoulder Left Active Shoulder ROM WFL No Flexion 40 Extension 10 Abduction 35 External Rotation at 0 degrees Abduction 45 Internal Rotation Behind Back (text) L4 Right Shoulder ROM WFL Yes Shoulder ROM Limitations Shoulder ROM Limitations Pain Elbow/Forearm Range of Motion Elbow/Forearm tavares Elbow/Forearm ROM WFL Yes PT-OP-L Special Tests Start: 08/05/23 15:32 Freq: Status: Active Protocol: Document 08/06/23 09:33 SAK (Rec: 08/07/23 08:46 [facility] [id number]) Special Tests Shoulder Special Tests Speed's Biceps Test Results - Passive ER Rotator Cuff Test Results +L Drop Arm Rotator Cuff Test Results +L Belly Press Test Results + L PT-OP-M Strength Start: 08/05/23 15:32 Freq: Status: Active Protocol: Document 08/06/23 09:33 SAK (Rec: 08/07/23 08:46 SAK [id number]) Shoulder Strength Shoulder Manual Muscle Testing Left Comments not tested due to severity of pain, less than anti-gravity strength Right Flexion 5 Normal Extension 5 Normal Abduction (C5) 5 Normal Adduction 5 Normal External Rotation 4 Good Internal Rotation 5 Normal PT-OP-Q Treatments Start: 08/05/23 15:32 Freq: Status: Active Protocol: Document 08/28/23 10:20 NBM (Rec: 08/28/23 11:57 NBM [id number]) Therapeutic Exercises Supine Exercises over noodle Supine Exercise Name pec stretch in T and W > 1 . FF 2. HABD 3. serratus press Side bilateral Resistance AAROM wand, AROM rest Equipment Used over noodle Reps/Minutes 10 reps each Comments cued slow pacing mobility, good scapular UR and progress AA/AROM Sitting Exercises pulleys Sitting Exercise Name flex, scap, abd- HEP reviewed Side left Equipment Used mirror Reps/Minutes 10x each Comments Cued elbow straight, level shld, cues for breathing, dec UT activation Standing Exercises wall posture Standing Exercise Name HEP Reps/Minutes 5 SH x5 Comments good head nod CS pos/arms side anatomical pos, NS CS/LS, Rhomb fac wall pushups Standing Exercise Name HEP - modified to // bars to simulate home Side bilateral Resistance AROM Reps/Minutes x10 reps Comments cues c-sp align, no LB arch- muscle tiring/pnfree resisted ER Standing Exercise Name HEP Side bilateral Resistance TB #1 between BUEs Reps/Minutes x10 reps, 5 SH head turn x3 reps Comments good longus colli, little head /neck wobbly feeling but painfree/tiring resisted ext Standing Exercise Name HEP- better than rows, less/no bicep recruitment Side bilateral Resistance Tb #1 peach Reps/Minutes 2x5 reps Comments cued neutral CS, rhomboid fac Self-Care/Home Management Treatment Education Patient Education Body Mechanics,Home Exercise Program,Pain Management, Posture Other Education Education for cross-body purse wearing (R kiara to L hip) instead of on L shoulder only. Time taken to adjust purse straps. HEP review. 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 LTG Duration 11/05/23 Three Impairment ROM limitations Impairment 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 elevation 45 deg AROM, 125 PROM Short Term Goal (STG) Improve AROM 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 elevation to at least 110 degrees with 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 Custodial Goal (LTG) AROM elevation 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 to at least 155 deg with 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 to allow her to return to usual activities LTG Duration 11/05/23 Two Impairment Activity tolerance Impairment QuickDash UE disability index score 81% Short Term Goal (STG) Decrease Quickdash score to no greater than 50% as measure of improved activity tolerance with left UE STG Duration 09/27/23 Custodial Goal (LTG) Decrease Quickdash score to no greater than 20% as measure of improved activity tolerance with left UE LTG Duration 11/05/23 One Impairment severe pain 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 with movement especially overhead and behind back Short Term Goal (STG) Decrease pain by at least 50% at rest STG Duration 09/27/23 Custodial Goal (LTG) Decrease pain by at least 75% with all usual activities including ability to reach overhead and behind her back for ADL's and usual household activities. LTG Duration 11/05/23 Assessment Summary Assessment Leisa presents today with increased tightness and tavares kiara pain at times R>L, possibly related to missing a pain pill yesterday and to lifting mechanics for new 15.2 # dog adopted a couple of weeks ago. Leisa demonstrates good postural awareness with wall posture ex but requires occasional cues for neutral cervical spine alignment with posture and pushups in plantigrade. She is able to perform resisted ER Lvl 1 Tb bilaterally without pain but has sharp L upper extremity pain with unilateral L kiara resisted Lvl Tb doubled. She tolerates increased reps without increased pain of standing and supine shoulder exercises. Education for cross -body purse wearing (R kiara to L hip) instead of on L shoulder only with time taken to adjust purse straps. Pt encouraged to be mindful of scapular setting when lifting dog. Ice offered and declined as pt will ice shoulder at home. Physical Therapy Plan Frequency and Duration Frequency of Treatment 2x/Week Duration of treatment (weeks) 8 Plan of Care Start Date 08/06/23 Plan of Care End Date 10/07/23 Therapeutic Interventions Therapeutic Interventions Home Exercise Program,Joint Mobilizations,Manual Therapy, Patient/Caregiver Education, Self-Care/Home Management,Soft Tissue Mobilization,Taping, Therapeutic Activities, Therapeutic Exercises Modalities Cold Pack/Ice Massage,Electric Stimulation,Hot Packs, Infrared Therapy Next Visit Focus/Plan Next Note Type Treatment Note Next Visit Plan Add pec stretch to HEP for use prior to supine noodle ex's. Review Bending/Lifting mechanics for 15.2# dog which may be contributing to tavares kiara pn. POC: Continue gentle ther ex progression, cross friction massage. Iontophoresis as needed. Show picture of scapulohumeral rhythm for further reinforcement of scapular mechanics
--- NOTE | 2023-09-03 16:57 | PT.OTN ---
Current Diagnoses Primary osteoarthritis, 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 (09/03/23) Strain of muscle(s) and tendon(s) of the rotator cuff of 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, initial encounter (09/03/23) Physical Therapy Treatment Note PT-OP-A Visit Information Start: 08/05/23 15:32 Freq: Status: Active Protocol: Document 09/03/23 09:03 SAK (Rec: 09/03/23 09:47 [facility] [id number]) Out-Patient Physical Therapy Visit Information Visit Information Visit Type Treatment Note Visit Start Time 09:03 Visit Stop Time 09:45 Total Visit Minutes 42 Visit Number 8 Number of MRI TECH Visits 0 Evaluation Information Evaluation Date 08/06/23 Precautions Precautions osteoporosis, history cervical disc fusion 2013. PT-OP-B Current Condition Start: 08/05/23 15:32 Freq: Status: Active Protocol: Document 08/08/23 09:46 SAK (Rec: 08/08/23 10:33 SAK [id number]) Current Condition History of Current Condition Onset Date August 2022 Current Complaints 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 pain History of Current Condition doing side plank, felt and heard pop in 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, very painful, pain gradually mostly went away. Increased again after moving some awkward furniture 1 /month ago . Also felt bee sting type sensation while gardening and note redness and swelling upper arm recently. Denies N/ T. Pt right handed. Has appt with Dr. Logan 08/24/23. Has been doing exercises at home; wall slide, pendulum; pendulum feels good, wall slide can get painful . Reports lifting arm overhead painful, especially about chest level, has to use right UE to assist left overhead, and reports severe pain when lowering back down. Reports very sensitive to the touch, difficulty reaching overhead and behind back painful, getting dressed painful. Has a set of pulleys but not sure if doing correctly. Went to massage therapist last week and pain increased after. Prior Treatments and Tests x-ray 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 07/24/23: moderate GH and AC joint arthritis Future Testing and Treatments Planned Dr. Logan 08/24/23 Treatment Goals Patient/Caregiver Goals decrease shoulder pain, be able resume normal activity lvel PT-OP-C Subjective Start: 08/05/23 15:32 Freq: Status: Active Protocol: Document 09/03/23 09:03 SAK (Rec: 09/03/23 09:47 SAK [id number]) OP-PT Subjective Patient Comments Patient Comments Overall feeling better, still some pain reaching backward and to side. Rarely icing though still taking Meloxicam 1x/day. Able to do some Qi Gong movements now PT-OP-F Manual Assessment Start: 08/05/23 15:32 Freq: Status: Active Protocol: Document 08/06/23 09:33 SAK (Rec: 08/07/23 08:46 SAK [id number]) Manual Assessments Joint Mobility Assessment Joint Mobility Assessment difficult to assess due to heavy guarding PT-OP-H Neuro Start: 08/05/23 15:32 Freq: Status: Active Protocol: Document 08/06/23 09:33 SAK (Rec: 08/07/23 08:46 SAK [id number]) Sensation Evaluation Gross Sensation Gross Sensation WNL PT-OP-J Posture/Palpation/Skin Start: 08/05/23 15:32 Freq: Status: Active Protocol: Document 08/06/23 09:33 SAK (Rec: 08/07/23 08:46 SAK [id number]) Posture Evaluation Position Sitting Head/C-Spine Posture C-Spine Flattened Shoulder Posture (L) Rounded,(R) Rounded PT-OP-K Range of Motion Start: 08/05/23 15:32 Freq: Status: Active Protocol: Document 08/06/23 09:33 SAK (Rec: 08/07/23 08:46 [facility] [id number]) Shoulder Goniometric Range of Motion Shoulder Left Active Shoulder ROM WFL No Flexion 40 Extension 10 Abduction 35 External Rotation at 0 degrees Abduction 45 Internal Rotation Behind Back (text) L4 Right Shoulder ROM WFL Yes Shoulder ROM Limitations Shoulder ROM Limitations Pain Elbow/Forearm Range of Motion Elbow/Forearm tavares Elbow/Forearm ROM WFL Yes PT-OP-L Special Tests Start: 08/05/23 15:32 Freq: Status: Active Protocol: Document 08/06/23 09:33 SAK (Rec: 08/07/23 08:46 [facility] [id number]) Special Tests Shoulder Special Tests Speed's Biceps Test Results - Passive ER Rotator Cuff Test Results +L Drop Arm Rotator Cuff Test Results +L Belly Press Test Results + L PT-OP-M Strength Start: 08/05/23 15:32 Freq: Status: Active Protocol: Document 08/06/23 09:33 SAK (Rec: 08/07/23 08:46 SAK [id number]) Shoulder Strength Shoulder Manual Muscle Testing Left Comments not tested due to severity of pain, less than anti-gravity strength Right Flexion 5 Normal Extension 5 Normal Abduction (C5) 5 Normal Adduction 5 Normal External Rotation 4 Good Internal Rotation 5 Normal PT-OP-Q Treatments Start: 08/05/23 15:32 Freq: Status: Active Protocol: Document 09/03/23 09:03 SAK (Rec: 09/03/23 09:47 [facility] [id number]) Therapeutic Exercises Supine Exercises circles Equipment Used L1 TB held in both hands Reps/Minutes 3-5 Comments pt self initiated at home, good tolerance, cues for pain- free ROM pec stretch Supine Exercise Name rodney, min Side bilateral Equipment Used pool noodle Reps/Minutes 2x30 Comments left UE needed pillow support for min, cues for gentle shoulder flex Reps/Minutes 5x Comments TB between hands PROM 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 Supine Exercise Name AAROM with L1 TB held between hands Reps/Minutes 10x Comments painfree ROM Sidelying Exercises open book Sidelying Exercise Name added to HEP Reps/Minutes 5x Comments cues for segmental moveent, pain-free ROM Standing Exercises wall posture Standing Exercise Name HEP Reps/Minutes 5 SH x5 Comments good head nod CS pos/arms side anatomical pos, NS CS/LS, Rhomb fac Manual Therapy Treatment Other Other Manual Treatments ROM and strength testing PT-OP-R Modalities Start: 08/05/23 15:32 Freq: Status: Active Protocol: Document 08/22/23 14:32 SP (Rec: 08/22/23 16:09 SP [id number]) Electric Stimulation Electric Stimulation L shld Body Location UT, deltoid, prox short head bicep, distal infra sp Duration (Minutes) 10 Intensity 17>19 Patient Position Hooklying Combined With Heat/Cold Cold Pack Comments good feedback response PT-OP-T Assessment and Plan Start: 08/05/23 15:32 Freq: Status: Active Protocol: Document 09/03/23 09:03 SAK (Rec: 09/03/23 09:47 SAK [id number]) Physical Therapy Assessment Goals 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 LTG Duration 11/05/23 Three Impairment ROM limitations Impairment 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 elevation 45 deg AROM, 125 PROM. Unable to reach behind her back 09/03/23: 135, painful to reach behind her back, can reach to L5 Short Term Goal (STG) Improve AROM 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 elevation to at least 110 degrees with 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 STG Duration 10/07/23 Fdc Goal (LTG) AROM elevation 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 to at least 155 deg, and internal rotation to L2 with 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 to allow her to return to usual activities LTG Duration 11/05/23 Two Impairment Activity tolerance Impairment QuickDash UE disability index score 81% Short Term Goal (STG) Decrease Quickdash score to no greater than 50% as measure of improved activity tolerance with left UE 09/03/23: dec to 41% STG Duration 09/27/23 Mapping Engineer Goal (LTG) Decrease Quickdash score to no greater than 20% as measure of improved activity tolerance with left UE LTG Duration 11/05/23 One Impairment severe pain 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 with movement especially overhead and behind back Short Term Goal (STG) Decrease pain by at least 50% at rest 09/03/23: goal met STG Duration 09/27/23 Fdc Goal (LTG) Decrease pain by at least 75% with all usual activities including ability to reach overhead and behind her back for ADL's and usual household activities. LTG Duration 11/05/23 Progress Towards Goals Progress Towards Goals Progressing Toward Goals Assessment Summary Assessment Improved strength and ROM 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, still some limitaitons as above. Able to do strength testing with arm at side with tolerance for mod resistance with min pain. Positive belly press and drop arm tests but pain not as sever. Still taking Meloxicam 1x/day. Physical Therapy Plan Frequency and Duration Frequency of Treatment 2x/Week Duration of treatment (weeks) 8 Plan of Care Start Date 08/06/23 Plan of Care End Date 10/07/23 Therapeutic Interventions Therapeutic Interventions Home Exercise Program,Joint Mobilizations,Manual Therapy, Patient/Caregiver Education, Self-Care/Home Management,Soft Tissue Mobilization,Taping, Therapeutic Activities, Therapeutic Exercises Modalities Cold Pack/Ice Massage,Electric Stimulation,Hot Packs, Infrared Therapy Next Visit Focus/Plan Next Note Type Treatment Note Next Visit Plan POC: Continue gentle ther ex progression, cross friction massage. Iontophoresis as needed. Show picture of scapulohumeral rhythm for further reinforcement of scapular mechanics
--- NOTE | 2023-09-07 10:52 | PT-OP ANOTE ---
Pt calls to speak with [employer] Intelligence Officer schedulers to advise she had misread her calendar and apologizes for missing today's appt. Next appt confirmed.
--- NOTE | 2023-09-14 10:30 | PT.OTN ---
Current Diagnoses Primary osteoarthritis, 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 (09/14/23) Strain of muscle(s) and tendon(s) of the rotator cuff of 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, initial encounter (09/14/23) Physical Therapy Treatment Note PT-OP-A Visit Information Start: 08/05/23 15:32 Freq: Status: Active Protocol: Document 09/14/23 09:47 SP (Rec: 09/14/23 10:37 SP [id number]) Out-Patient Physical Therapy Visit Information Visit Information Visit Type Treatment Note Visit Start Time 09:47 Visit Stop Time 10:30 Total Visit Minutes 43 Visit Number 9 Number of JIG OPERATOR Visits 1 Evaluation Information Evaluation Date 08/06/23 Precautions Precautions osteoporosis, history cervical disc fusion 2013. PT-OP-B Current Condition Start: 08/05/23 15:32 Freq: Status: Active Protocol: Document 08/08/23 09:46 SAK (Rec: 08/08/23 10:33 SAK [id number]) Current Condition History of Current Condition Onset Date August 2022 Current Complaints 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 pain History of Current Condition doing side plank, felt and heard pop in 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, very painful, pain gradually mostly went away. Increased again after moving some awkward furniture 1 /month ago . Also felt bee sting type sensation while gardening and note redness and swelling upper arm recently. Denies N/ T. Pt right handed. Has appt with Dr. Logan 08/24/23. Has been doing exercises at home; wall slide, pendulum; pendulum feels good, wall slide can get painful . Reports lifting arm overhead painful, especially about chest level, has to use right UE to assist left overhead, and reports severe pain when lowering back down. Reports very sensitive to the touch, difficulty reaching overhead and behind back painful, getting dressed painful. Has a set of pulleys but not sure if doing correctly. Went to massage therapist last week and pain increased after. Prior Treatments and Tests x-ray 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 07/24/23: moderate GH and AC joint arthritis Future Testing and Treatments Planned Dr. Logan 08/24/23 Treatment Goals Patient/Caregiver Goals decrease shoulder pain, be able resume normal activity lvel PT-OP-C Subjective Start: 08/05/23 15:32 Freq: Status: Active Protocol: Document 09/14/23 09:47 SP (Rec: 09/14/23 10:37 SP [id number]) OP-PT Subjective Patient Comments Patient Comments Pt reports neck still decreased ROM and neck tension . Feels L UE ROM improving, can reach behind back little better. PT-OP-F Manual Assessment Start: 08/05/23 15:32 Freq: Status: Active Protocol: Document 08/06/23 09:33 SAK (Rec: 08/07/23 08:46 SAK [id number]) Manual Assessments Joint Mobility Assessment Joint Mobility Assessment difficult to assess due to heavy guarding PT-OP-H Neuro Start: 08/05/23 15:32 Freq: Status: Active Protocol: Document 08/06/23 09:33 SAK (Rec: 08/07/23 08:46 SAK [id number]) Sensation Evaluation Gross Sensation Gross Sensation WNL PT-OP-J Posture/Palpation/Skin Start: 08/05/23 15:32 Freq: Status: Active Protocol: Document 08/06/23 09:33 SAK (Rec: 08/07/23 08:46 SAK [id number]) Posture Evaluation Position Sitting Head/C-Spine Posture C-Spine Flattened Shoulder Posture (L) Rounded,(R) Rounded PT-OP-K Range of Motion Start: 08/05/23 15:32 Freq: Status: Active Protocol: Document 08/06/23 09:33 SAK (Rec: 08/07/23 08:46 SAK [id number]) Shoulder Goniometric Range of Motion Shoulder Left Active Shoulder ROM WFL No Flexion 40 Extension 10 Abduction 35 External Rotation at 0 degrees Abduction 45 Internal Rotation Behind Back (text) L4 Right Shoulder ROM WFL Yes Shoulder ROM Limitations Shoulder ROM Limitations Pain Elbow/Forearm Range of Motion Elbow/Forearm tavares Elbow/Forearm ROM WFL Yes PT-OP-L Special Tests Start: 08/05/23 15:32 Freq: Status: Active Protocol: Document 08/06/23 09:33 SAK (Rec: 08/07/23 08:46 SAK [id number]) Special Tests Shoulder Special Tests Speed's Biceps Test Results - Passive ER Rotator Cuff Test Results +L Drop Arm Rotator Cuff Test Results +L Belly Press Test Results + L PT-OP-M Strength Start: 08/05/23 15:32 Freq: Status: Active Protocol: Document 08/06/23 09:33 SAK (Rec: 08/07/23 08:46 SAK [id number]) Shoulder Strength Shoulder Manual Muscle Testing Left Comments not tested due to severity of pain, less than anti-gravity strength Right Flexion 5 Normal Extension 5 Normal Abduction (C5) 5 Normal Adduction 5 Normal External Rotation 4 Good Internal Rotation 5 Normal PT-OP-Q Treatments Start: 08/05/23 15:32 Freq: Status: Active Protocol: Document 09/14/23 09:47 SP (Rec: 09/14/23 10:37 SP [id number]) Therapeutic Exercises Supine Exercises over noodle Supine Exercise Name pec stretch, T and W > 1. FF 2. HABD 3. serratus press Side bilateral Resistance AROM, low level TB progression if ok Equipment Used over noodle- verbalized/ not performed Comments end tx didnt get to, look over noodle or 1/2 foam roller next tx Sidelying Exercises open book Sidelying Exercise Name reviewed HEP Side left Reps/Minutes 5x Comments cues for segmental movt, pain- free ROM but not touch table shoulder flex Sidelying Exercise Name trialed in PT Side left Resistance PROM>AAROM, Reps/Minutes 5x Comments 5% A inferior GH glide and upward scap rotation, cue SA press decr pinch shoulder abd Side left Resistance PROM ok, AAROM approx 140 deg Comments tactile cues for SA Press needed, decrease tension superior shld Standing Exercises IR stretch Standing Exercise Name added to HEP-give HO next tx Resistance towel Equipment Used good response able get across R side/ Reps/Minutes 15 SH x3 Comments cued across pelvis then up back tolerant, low/no pain Manual Therapy Treatment Soft Tissue Mobilization UT Body Location L Mobilization Type Myofascial Release,Sustained Pressure Intensity/Depth Moderate Body Position Sidelying RC insertion Body Location L suprasp, infrasp, Teres Mobilization Type Cross-Friction Intensity/Depth Moderate Body Position Sidelying Joint Mobilizations scapula Joint L Direction protr,retr, sup,inf Body Position Sidelying Reps/Duration 3x ea Comments PROM, AAROM clocks, MWM abd/FF . 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 LTG Duration 11/05/23 Three Impairment ROM limitations Impairment 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 elevation 45 deg AROM, 125 PROM. Unable to reach behind her back 09/03/23: 135, painful to reach behind her back, can reach to L5 Short Term Goal (STG) Improve AROM 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 elevation to at least 110 degrees with 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 STG Duration 10/07/23 Longterm Goal (LTG) AROM elevation 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 to at least 155 deg, and internal rotation to L2 with 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 to allow her to return to usual activities LTG Duration 11/05/23 Two Impairment Activity tolerance Impairment QuickDash UE disability index score 81% Short Term Goal (STG) Decrease Quickdash score to no greater than 50% as measure of improved activity tolerance with left UE 09/03/23: dec to 41% STG Duration 09/27/23 Longterm Goal (LTG) Decrease Quickdash score to no greater than 20% as measure of improved activity tolerance with left UE LTG Duration 11/05/23 One Impairment severe pain 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 with movement especially overhead and behind back Short Term Goal (STG) Decrease pain by at least 50% at rest 09/03/23: goal met STG Duration 09/27/23 Longterm Goal (LTG) Decrease pain by at least 75% with all usual activities including ability to reach overhead and behind her back for ADL's and usual household activities. LTG Duration 11/05/23 Assessment Summary Assessment Pt improved AROM, AAROM into ABD and FF on side, tactile cues for serratus press improve s GH control into FF/ abd/HABD humeral inferior glide and muscle tiring control. REview ABD before add to HEP with HO. Pt report no pain end tx and pleased with progress making. Physical Therapy Plan Frequency and Duration Frequency of Treatment 2x/Week Duration of treatment (weeks) 8 Plan of Care Start Date 08/06/23 Plan of Care End Date 10/07/23 Therapeutic Interventions Therapeutic Interventions Home Exercise Program,Joint Mobilizations,Manual Therapy, Patient/Caregiver Education, Self-Care/Home Management,Soft Tissue Mobilization,Taping, Therapeutic Activities, Therapeutic Exercises Modalities Cold Pack/Ice Massage,Electric Stimulation,Hot Packs, Infrared Therapy Next Visit Focus/Plan Next Note Type Treatment Note Next Visit Plan Add RTC TB next tx, continue side: ABD/FF AROM. POC: Continue gentle ther ex progression, cross friction massage. Iontophoresis as needed. Show picture of scapulohumeral rhythm for further reinforcement of scapular mechanics
--- NOTE | 2023-09-18 13:39 | PT.OTN ---
Current Diagnoses Primary osteoarthritis, 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 (09/18/23) Strain of muscle(s) and tendon(s) of the rotator cuff of 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, initial encounter (09/18/23) Physical Therapy Treatment Note PT-OP-A Visit Information Start: 08/05/23 15:32 Freq: Status: Active Protocol: Document 09/18/23 09:02 SAK (Rec: 09/18/23 09:47 [facility] [id number]) Out-Patient Physical Therapy Visit Information Visit Information Visit Type Treatment Note Visit Start Time 09:02 Visit Stop Time 09:45 Total Visit Minutes 43 Visit Number 10 Evaluation Information Evaluation Date 09/18/23 Precautions Precautions osteoporosis, history cervical disc fusion 2013. PT-OP-B Current Condition Start: 08/05/23 15:32 Freq: Status: Active Protocol: Document 08/08/23 09:46 SAK (Rec: 08/08/23 10:33 SAK [id number]) Current Condition History of Current Condition Onset Date August 2022 Current Complaints 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 pain History of Current Condition doing side plank, felt and heard pop in 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, very painful, pain gradually mostly went away. Increased again after moving some awkward furniture 1 /month ago . Also felt bee sting type sensation while gardening and note redness and swelling upper arm recently. Denies N/ T. Pt right handed. Has appt with Dr. Logan 08/24/23. Has been doing exercises at home; wall slide, pendulum; pendulum feels good, wall slide can get painful . Reports lifting arm overhead painful, especially about chest level, has to use right UE to assist left overhead, and reports severe pain when lowering back down. Reports very sensitive to the touch, difficulty reaching overhead and behind back painful, getting dressed painful. Has a set of pulleys but not sure if doing correctly. Went to massage therapist last week and pain increased after. Prior Treatments and Tests x-ray 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 07/24/23: moderate GH and AC joint arthritis Future Testing and Treatments Planned Dr. Logan 08/24/23 Treatment Goals Patient/Caregiver Goals decrease shoulder pain, be able resume normal activity lvel PT-OP-C Subjective Start: 08/05/23 15:32 Freq: Status: Active Protocol: Document 09/18/23 09:02 SAK (Rec: 09/18/23 09:47 SAK [id number]) OP-PT Subjective Patient Comments Patient Comments FEels she continues to improve , has to modify some activities. Was able to do 1 min plank on forearms PT-OP-F Manual Assessment Start: 08/05/23 15:32 Freq: Status: Active Protocol: Document 08/06/23 09:33 SAK (Rec: 08/07/23 08:46 SAK [id number]) Manual Assessments Joint Mobility Assessment Joint Mobility Assessment difficult to assess due to heavy guarding PT-OP-H Neuro Start: 08/05/23 15:32 Freq: Status: Active Protocol: Document 08/06/23 09:33 SAK (Rec: 08/07/23 08:46 SAK [id number]) Sensation Evaluation Gross Sensation Gross Sensation WNL PT-OP-J Posture/Palpation/Skin Start: 08/05/23 15:32 Freq: Status: Active Protocol: Document 08/06/23 09:33 SAK (Rec: 08/07/23 08:46 SAK [id number]) Posture Evaluation Position Sitting Head/C-Spine Posture C-Spine Flattened Shoulder Posture (L) Rounded,(R) Rounded PT-OP-K Range of Motion Start: 08/05/23 15:32 Freq: Status: Active Protocol: Document 08/06/23 09:33 SAK (Rec: 08/07/23 08:46 SAK [id number]) Shoulder Goniometric Range of Motion Shoulder Left Active Shoulder ROM WFL No Flexion 40 Extension 10 Abduction 35 External Rotation at 0 degrees Abduction 45 Internal Rotation Behind Back (text) L4 Right Shoulder ROM WFL Yes Shoulder ROM Limitations Shoulder ROM Limitations Pain Elbow/Forearm Range of Motion Elbow/Forearm tavares Elbow/Forearm ROM WFL Yes PT-OP-L Special Tests Start: 08/05/23 15:32 Freq: Status: Active Protocol: Document 08/06/23 09:33 SAK (Rec: 08/07/23 08:46 SAK [id number]) Special Tests Shoulder Special Tests Speed's Biceps Test Results - Passive ER Rotator Cuff Test Results +L Drop Arm Rotator Cuff Test Results +L Belly Press Test Results + L PT-OP-M Strength Start: 08/05/23 15:32 Freq: Status: Active Protocol: Document 08/06/23 09:33 SAK (Rec: 08/07/23 08:46 SAK [id number]) Shoulder Strength Shoulder Manual Muscle Testing Left Comments not tested due to severity of pain, less than anti-gravity strength Right Flexion 5 Normal Extension 5 Normal Abduction (C5) 5 Normal Adduction 5 Normal External Rotation 4 Good Internal Rotation 5 Normal PT-OP-Q Treatments Start: 08/05/23 15:32 Freq: Status: Active Protocol: Document 09/18/23 09:02 SAK (Rec: 09/18/23 09:47 SAK [id number]) Therapeutic Exercises Prone Exercises I, T, Y Prone Exercise Name I only, T caused rib pain, Reps/Minutes 4x Comments discontinued due to pain laying prone Sidelying Exercises shoulder flex Sidelying Exercise Name scaption better tolerated Side left Resistance PROM>AAROM> AROM Reps/Minutes 5x Comments 5% A inferior GH glide and upward scap rotation, cue SA press decr pinch shoulder abd Side left Resistance PROM ok, AAROM approx 140 deg Comments tactile cues for SA Press needed, decrease tension superior shld scapular clock Sidelying Exercise Name 08/01, 11/02, 12/04, Reps/Minutes 10x ea Comments verbal and manual cues Sitting Exercises pulleys Sitting Exercise Name flex, scap, abd- HEP reviewed Side left Equipment Used mirror Reps/Minutes 10x each Comments Cued elbow straight, level shld, cues for breathing, dec UT activation Standing Exercises IR stretch Standing Exercise Name HEP Resistance towel Equipment Used good response able get across R side/ Reps/Minutes verbal review Manual Therapy Treatment Soft Tissue Mobilization RC insertion Body Location L suprasp, infrasp, Teres Mobilization Type Cross-Friction Intensity/Depth Moderate Body Position Sidelying Joint Mobilizations scapula Joint L Direction protr,retr, sup,inf Body Position Sidelying Reps/Duration 3x ea Comments PROM, AAROM clocks, MWM abd/FF . Other Other Manual Treatments ROM and strength testing Self-Care/Home Management Treatment Education Other Education use mirror to observe compensations and self-correct PT-OP-R Modalities Start: 08/05/23 15:32 Freq: Status: Active Protocol: Document 08/22/23 14:32 SP (Rec: 08/22/23 16:09 SP [id number]) Electric Stimulation Electric Stimulation L shld Body Location UT, deltoid, prox short head bicep, distal infra sp Duration (Minutes) 10 Intensity 17>19 Patient Position Hooklying Combined With Heat/Cold Cold Pack Comments good feedback response PT-OP-T Assessment and Plan Start: 08/05/23 15:32 Freq: Status: Active Protocol: Document 09/18/23 09:02 LEVAR (Rec: 09/18/23 09:47 [facility] [id number]) Physical Therapy Assessment Goals 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 09/18/23: able to practice modified Qi Gog, feels compensation LTG Duration 10/07/23 Three Impairment ROM limitations Impairment 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 elevation 45 deg AROM, 125 PROM. Unable to reach behind her back 09/03/23: 135, painful to reach behind her back, can reach to L5 09/18/23: Reaching behind to T12 when warmed up, flexion 145, abduction 147 Short Term Goal (STG) Improve AROM 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 elevation to at least 110 degrees with 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 09/18/23: goal met STG Duration goal met Mcfp Goal (LTG) AROM elevation 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 to at least 155 deg, and internal rotation to L2 with 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 to allow her to return to usual activities LTG Duration 10/07/23 Two Impairment Activity tolerance Impairment QuickDash UE disability index score 81% Short Term Goal (STG) Decrease Quickdash score to no greater than 50% as measure of improved activity tolerance with left UE 09/03/23: dec to 41% 09/18/23: STG Duration 09/27/23 Technician Inventory Specialist Goal (LTG) Decrease Quickdash score to no greater than 20% as measure of improved activity tolerance with left UE LTG Duration 10/07/23 One Impairment severe pain 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 with movement especially overhead and behind back Short Term Goal (STG) Decrease pain by at least 50% at rest 09/03/23: goal met STG Duration goal met Mcfp Goal (LTG) Decrease pain by at least 75% with all usual activities including ability to reach overhead and behind her back for ADL's and usual household activities. 09/18/23: good goal progress LTG Duration 10/07/23 Progress Towards Goals Progress Towards Goals Progressing Toward Goals Assessment Summary Assessment Good progress in all goal areas as above. Able to do some Qi Gong now but modifications required. Good compliance to HEP. Demonsntrates good understanding of compensations and found use of mirror again helpful. Has potential for further improvement. Physical Therapy Plan Frequency and Duration Frequency of Treatment 2x/Week Duration of treatment (weeks) 8 Plan of Care Start Date 08/06/23 Plan of Care End Date 10/07/23 Therapeutic Interventions Therapeutic Interventions Home Exercise Program,Joint Mobilizations,Manual Therapy, Patient/Caregiver Education, Self-Care/Home Management,Soft Tissue Mobilization,Taping, Therapeutic Activities, Therapeutic Exercises Modalities Cold Pack/Ice Massage,Electric Stimulation,Hot Packs, Infrared Therapy Next Visit Focus/Plan Next Note Type Treatment Note Next Visit Plan Add RTC TB next tx, continue side: ABD/FF AROM, trial small body bladed elbow at side POC: Continue gentle ther ex progression, cross friction massage. Iontophoresis as needed. Show picture of scapulohumeral rhythm for further reinforcement of scapular mechanics
--- NOTE | 2023-09-24 18:30 | PT.OTN ---
Current Diagnoses Primary osteoarthritis, 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 (09/24/23) Strain of muscle(s) and tendon(s) of the rotator cuff of 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, initial encounter (09/24/23) Physical Therapy Treatment Note PT-OP-A Visit Information Start: 08/05/23 15:32 Freq: Status: Active Protocol: Document 09/24/23 13:03 NBM (Rec: 09/24/23 13:49 NBM [id number]) Out-Patient Physical Therapy Visit Information Visit Information Visit Type Treatment Note Visit Start Time 13:03 Visit Stop Time 13:46 Visit Number 11 Number of HEAD START TEACHER Visits 1 Evaluation Information Evaluation Date 09/18/23 Precautions Precautions osteoporosis, history cervical disc fusion 2013. PT-OP-B Current Condition Start: 08/05/23 15:32 Freq: Status: Active Protocol: Document 08/08/23 09:46 SAK (Rec: 08/08/23 10:33 SAK [id number]) Current Condition History of Current Condition Onset Date August 2022 Current Complaints 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 pain History of Current Condition doing side plank, felt and heard pop in 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, very painful, pain gradually mostly went away. Increased again after moving some awkward furniture 1 /month ago . Also felt bee sting type sensation while gardening and note redness and swelling upper arm recently. Denies N/ T. Pt right handed. Has appt with Dr. Logan 08/24/23. Has been doing exercises at home; wall slide, pendulum; pendulum feels good, wall slide can get painful . Reports lifting arm overhead painful, especially about chest level, has to use right UE to assist left overhead, and reports severe pain when lowering back down. Reports very sensitive to the touch, difficulty reaching overhead and behind back painful, getting dressed painful. Has a set of pulleys but not sure if doing correctly. Went to massage therapist last week and pain increased after. Prior Treatments and Tests x-ray 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 07/24/23: moderate GH and AC joint arthritis Future Testing and Treatments Planned Dr. Logan 08/24/23 Treatment Goals Patient/Caregiver Goals decrease shoulder pain, be able resume normal activity lvel PT-OP-C Subjective Start: 08/05/23 15:32 Freq: Status: Active Protocol: Document 09/24/23 13:03 NBM (Rec: 09/24/23 13:49 NBM [id number]) OP-PT Subjective Patient Comments Patient Comments Pt reports her R rib popped out when on stomach last visit and yesterday she was carrying a stool and banged it into the same spot, so she is sore today. PT-OP-F Manual Assessment Start: 08/05/23 15:32 Freq: Status: Active Protocol: Document 08/06/23 09:33 SAK (Rec: 08/07/23 08:46 SAK [id number]) Manual Assessments Joint Mobility Assessment Joint Mobility Assessment difficult to assess due to heavy guarding PT-OP-H Neuro Start: 08/05/23 15:32 Freq: Status: Active Protocol: Document 08/06/23 09:33 SAK (Rec: 08/07/23 08:46 SAK [id number]) Sensation Evaluation Gross Sensation Gross Sensation WNL PT-OP-J Posture/Palpation/Skin Start: 08/05/23 15:32 Freq: Status: Active Protocol: Document 08/06/23 09:33 SAK (Rec: 08/07/23 08:46 SAK [id number]) Posture Evaluation Position Sitting Head/C-Spine Posture C-Spine Flattened Shoulder Posture (L) Rounded,(R) Rounded PT-OP-K Range of Motion Start: 08/05/23 15:32 Freq: Status: Active Protocol: Document 08/06/23 09:33 SAK (Rec: 08/07/23 08:46 SAK [id number]) Shoulder Goniometric Range of Motion Shoulder Left Active Shoulder ROM WFL No Flexion 40 Extension 10 Abduction 35 External Rotation at 0 degrees Abduction 45 Internal Rotation Behind Back (text) L4 Right Shoulder ROM WFL Yes Shoulder ROM Limitations Shoulder ROM Limitations Pain Elbow/Forearm Range of Motion Elbow/Forearm tavares Elbow/Forearm ROM WFL Yes PT-OP-L Special Tests Start: 08/05/23 15:32 Freq: Status: Active Protocol: Document 08/06/23 09:33 SAK (Rec: 08/07/23 08:46 SAK [id number]) Special Tests Shoulder Special Tests Speed's Biceps Test Results - Passive ER Rotator Cuff Test Results +L Drop Arm Rotator Cuff Test Results +L Belly Press Test Results + L PT-OP-M Strength Start: 08/05/23 15:32 Freq: Status: Active Protocol: Document 08/06/23 09:33 SAK (Rec: 08/07/23 08:46 SAK [id number]) Shoulder Strength Shoulder Manual Muscle Testing Left Comments not tested due to severity of pain, less than anti-gravity strength Right Flexion 5 Normal Extension 5 Normal Abduction (C5) 5 Normal Adduction 5 Normal External Rotation 4 Good Internal Rotation 5 Normal PT-OP-Q Treatments Start: 08/05/23 15:32 Freq: Status: Active Protocol: Document 09/24/23 13:03 NB (Rec: 09/24/23 13:49 NB [id number]) Therapeutic Exercises Prone Exercises I, T, Y Prone Exercise Name I only, T caused rib pain - not today d/t rib soreness Reps/Minutes 4x Comments discontinued due to pain laying prone Sidelying Exercises shoulder flex Sidelying Exercise Name scaption better tolerated Side left Resistance PROM>AAROM> AROM Reps/Minutes 5x shoulder abd Side left Resistance PROM ok, AAROM approx 140 deg Comments tactile cues for SA Press needed, decrease tension superior shld scapular clock Sidelying Exercise Name 08/01, 11/02, 12/04, Reps/Minutes 10x ea Comments verbal and manual cues. Cues for UT overactivation. Sitting Exercises pulleys Sitting Exercise Name flex, scap, abd- HEP reviewed Side left Equipment Used mirror Reps/Minutes 10x each Comments Cued elbow straight, level shld, cues for breathing, dec UT activation Standing Exercises IR stretch Standing Exercise Name HEP Resistance pulleys Reps/Minutes x2 Comments before and after STM - no change Manual Therapy Treatment Soft Tissue Mobilization RC insertion Body Location L suprasp, infrasp, Teres Mobilization Type Cross-Friction Intensity/Depth Moderate Body Position Sidelying Joint Mobilizations scapula Joint L Direction protr,retr, sup,inf Body Position Sidelying Reps/Duration 3x ea Comments PROM, AAROM clocks, MWM abd/FF . Self-Care/Home Management Treatment Education Other Education reviewed w/ pt use of mirror to observe compensations and self-correct. cued for UT overactivation and initial scapular setting. 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 09/18/23: able to practice modified Qi Gog, feels compensation LTG Duration 10/07/23 Three Impairment ROM limitations Impairment 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 elevation 45 deg AROM, 125 PROM. Unable to reach behind her back 09/03/23: 135, painful to reach behind her back, can reach to L5 09/18/23: Reaching behind to T12 when warmed up, flexion 145, abduction 147 Short Term Goal (STG) Improve AROM 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 elevation to at least 110 degrees with 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 09/18/23: goal met STG Duration goal met Fpc Goal (LTG) AROM elevation 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 to at least 155 deg, and internal rotation to L2 with 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 to allow her to return to usual activities LTG Duration 10/07/23 Two Impairment Activity tolerance Impairment QuickDash UE disability index score 81% Short Term Goal (STG) Decrease Quickdash score to no greater than 50% as measure of improved activity tolerance with left UE 09/03/23: dec to 41% 09/18/23: STG Duration 09/27/23 Fpc Goal (LTG) Decrease Quickdash score to no greater than 20% as measure of improved activity tolerance with left UE LTG Duration 10/07/23 One Impairment severe pain 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 with movement especially overhead and behind back Short Term Goal (STG) Decrease pain by at least 50% at rest 09/03/23: goal met STG Duration goal met [employer] Goal (LTG) Decrease pain by at least 75% with all usual activities including ability to reach overhead and behind her back for ADL's and usual household activities. 09/18/23: good goal progress LTG Duration 10/07/23 Assessment Summary Assessment Leisa requires occasional cues for UT overactivation throughout treatment session. Palpable tension throughout L periscapular mm w/ lateral border emphasis improves after manual therapy. Physical Therapy Plan Frequency and Duration Frequency of Treatment 2x/Week Duration of treatment (weeks) 8 Plan of Care Start Date 08/06/23 Plan of Care End Date 10/07/23 Therapeutic Interventions Therapeutic Interventions Home Exercise Program,Joint Mobilizations,Manual Therapy, Patient/Caregiver Education, Self-Care/Home Management,Soft Tissue Mobilization,Taping, Therapeutic Activities, Therapeutic Exercises Modalities Cold Pack/Ice Massage,Electric Stimulation,Hot Packs, Infrared Therapy Next Visit Focus/Plan Next Note Type Treatment Note Next Visit Plan Add RTC TB next tx, continue side: ABD/FF AROM, trial small body bladed elbow at side POC: Continue gentle ther ex progression, cross friction massage. Iontophoresis as needed. Show picture of scapulohumeral rhythm for further reinforcement of scapular mechanics
--- NOTE | 2023-09-28 12:49 | PT.OTN ---
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 Increased again after moving some awkward furniture 1 /month ago . Also felt bee sting type sensation while gardening and note redness and swelling upper arm recently. Denies N/ T. Pt right handed. Has appt with Dr. Logan 08/24/23. Has been doing exercises at home; wall slide, pendulum; pendulum feels good, wall slide can get painful . Reports lifting arm overhead painful, especially about chest level, has to use right UE to assist left overhead, and reports severe pain when lowering back down. Reports very sensitive to the touch, difficulty reaching overhead and behind back painful, getting dressed painful. Has a set of pulleys but not sure if doing correctly. Went to massage therapist last week and pain increased after. Prior Treatments and Tests x-ray 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 07/24/23: moderate GH and AC joint arthritis Future Testing and Treatments Planned Dr. Logan 08/24/23 Treatment Goals Patient/Caregiver Goals decrease shoulder pain, be able resume normal activity lvel PT-OP-C Subjective Start: 08/05/23 15:32 Freq: Status: Active Protocol: Document 09/28/23 10:40 NBM (Rec: 09/28/23 11:34 NBM [id number]) OP-PT Subjective Patient Comments Patient Comments Leisa reports she did 28 day wall pilates and she did one day modified but it was too much. She has pain on her R shoulder on the inside, and soreness on R abdomen from when rib came out. Her L arm feels swollen and she's using a cream (like icy hot) which sems to help. She did some gardening yesterday that may have triggered the latest soreness, and she's able to do less and less until she comes in to PT when this happens. PT-OP-F Manual Assessment Start: 08/05/23 15:32 Freq: Status: Active Protocol: Document 08/06/23 09:33 SAK (Rec: 08/07/23 08:46 SAK [id number]) Manual Assessments Joint Mobility Assessment Joint Mobility Assessment difficult to assess due to heavy guarding PT-OP-H Neuro Start: 08/05/23 15:32 Freq: Status: Active Protocol: Document 08/06/23 09:33 SAK (Rec: 08/07/23 08:46 SAK [id number]) Sensation Evaluation Gross Sensation Gross Sensation WNL PT-OP-J Posture/Palpation/Skin Start: 08/05/23 15:32 Freq: Status: Active Protocol: Document 08/06/23 09:33 SAK (Rec: 08/07/23 08:46 SAK [id number]) Posture Evaluation Position Sitting Head/C-Spine Posture C-Spine Flattened Shoulder Posture (L) Rounded,(R) Rounded PT-OP-K Range of Motion Start: 08/05/23 15:32 Freq: Status: Active Protocol: Document 08/06/23 09:33 SAK (Rec: 08/07/23 08:46 SAK [id number]) Shoulder Goniometric Range of Motion Shoulder Left Active Shoulder ROM WFL No Flexion 40 Extension 10 Abduction 35 External Rotation at 0 degrees Abduction 45 Internal Rotation Behind Back (text) L4 Right Shoulder ROM WFL Yes Shoulder ROM Limitations Shoulder ROM Limitations Pain Elbow/Forearm Range of Motion Elbow/Forearm tavares Elbow/Forearm ROM WFL Yes PT-OP-L Special Tests Start: 08/05/23 15:32 Freq: Status: Active Protocol: Document 08/06/23 09:33 SAK (Rec: 08/07/23 08:46 SAK [id number]) Special Tests Shoulder Special Tests Speed's Biceps Test Results - Passive ER Rotator Cuff Test Results +L Drop Arm Rotator Cuff Test Results +L Belly Press Test Results + L PT-OP-M Strength Start: 08/05/23 15:32 Freq: Status: Active Protocol: Document 08/06/23 09:33 SAK (Rec: 08/07/23 08:46 SAK [id number]) Shoulder Strength Shoulder Manual Muscle Testing Left Comments not tested due to severity of pain, less than anti-gravity strength Right Flexion 5 Normal Extension 5 Normal Abduction (C5) 5 Normal Adduction 5 Normal External Rotation 4 Good Internal Rotation 5 Normal PT-OP-Q Treatments Start: 08/05/23 15:32 Freq: Status: Active Protocol: Document 09/28/23 10:40 NBM (Rec: 09/28/23 11:34 NB [id number]) Therapeutic Exercises Sitting Exercises UT, LS stretching Sitting Exercise Name 1. UT 2. LS Resistance R>L tightness post manual Reps/Minutes [id number] Comments added to HEP Manual Therapy Treatment Soft Tissue Mobilization paraspinals Body Location R>L Mobilization Type Rolling,Strumming,Trigger Point Release Intensity/Depth Moderate Body Position Sidelying Comments paraspinals, middle and lower trapezius mm R>L focus - possibly related to R rib soreness compensation UT Body Location L Mobilization Type Myofascial Release,Sustained Pressure Intensity/Depth Moderate Body Position Sidelying RC insertion Body Location L suprasp, infrasp, Teres Mobilization Type Cross-Friction,Strumming, Trigger Point Release Intensity/Depth Moderate Body Position Sidelying Comments circular strokes Joint Mobilizations scapula Joint L Direction protr,retr, sup,inf Body Position Sidelying Reps/Duration 3x ea Comments PROM, AAROM clocks, MWM abd/FF . Self-Care/Home Management Treatment Education Patient Education Home Exercise Program,Pain Management,Posture Other Education Discussion only d/t time of self-STM w/ tennis ball at wall for back and shoulder - HO provided. 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 09/18/23: able to practice modified Qi Gog, feels compensation LTG Duration 10/07/23 Three Impairment ROM limitations Impairment 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 elevation 45 deg AROM, 125 PROM. Unable to reach behind her back 09/03/23: 135, painful to reach behind her back, can reach to L5 09/18/23: Reaching behind to T12 when warmed up, flexion 145, abduction 147 Short Term Goal (STG) Improve AROM 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 elevation to at least 110 degrees with 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 09/18/23: goal met STG Duration goal met [employer] Goal (LTG) AROM elevation 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 to at least 155 deg, and internal rotation to L2 with 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 to allow her to return to usual activities LTG Duration 10/07/23 Two Impairment Activity tolerance Impairment QuickDash UE disability index score 81% Short Term Goal (STG) Decrease Quickdash score to no greater than 50% as measure of improved activity tolerance with left UE 09/03/23: dec to 41% 09/18/23: STG Duration 09/27/23 Retirement Goal (LTG) Decrease Quickdash score to no greater than 20% as measure of improved activity tolerance with left UE LTG Duration 10/07/23 One Impairment severe pain 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 with movement especially overhead and behind back Short Term Goal (STG) Decrease pain by at least 50% at rest 09/03/23: goal met STG Duration goal met Retirement Goal (LTG) Decrease pain by at least 75% with all usual activities including ability to reach overhead and behind her back for ADL's and usual household activities. 09/18/23: good goal progress LTG Duration 10/07/23 Assessment Summary Assessment Treatment focus today on manual therapy w/ focus on trigger points in UT and LS mm , and cervical stretches. Pt demonstrates significant tavares UT and LS tightness R>L after manual. Pt reports L anterior upper extremity discomfort and n. symptoms resolve after manual therapy to UT and LS. Pt demonstrates appropriate UT and LS cervical stretches after demo and cues for hold time - added to HEP, HO given. Discussion only d/t time of self-STM w/ tennis ball at wall for back and shoulder - HO provided. Cryotherapy offered and declined; pt to ice later today. Physical Therapy Plan Frequency and Duration Frequency of Treatment 2x/Week Duration of treatment (weeks) 8 Plan of Care Start Date 08/06/23 Plan of Care End Date 10/07/23 Therapeutic Interventions Therapeutic Interventions Home Exercise Program,Joint Mobilizations,Manual Therapy, Patient/Caregiver Education, Self-Care/Home Management,Soft Tissue Mobilization,Taping, Therapeutic Activities, Therapeutic Exercises Modalities Cold Pack/Ice Massage,Electric Stimulation,Hot Packs, Infrared Therapy Next Visit Focus/Plan Next Note Type Treatment Note Next Visit Plan Review UT/LS stretches and i/s in self-STM w/ tennis ball. Continue POC. POC: Add RTC TB next tx, continue side: ABD/FF AROM, trial small body bladed elbow at side POC: Continue gentle ther ex progression, cross friction massage. Iontophoresis as needed. Show picture of scapulohumeral rhythm for further reinforcement of scapular mechanics
--- NOTE | 2023-10-01 13:00 | PT.OTN ---
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 PT-OP-B Current Condition Start: 08/05/23 15:32 Freq: Status: Active Protocol: Document 08/08/23 09:46 SAK (Rec: 08/08/23 10:33 SAK [id number]) Current Condition History of Current Condition Onset Date August 2022 Current Complaints 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 pain History of Current Condition doing side plank, felt and heard pop in 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, very painful, pain gradually mostly went away. Increased again after moving some awkward furniture 1 /month ago . Also felt bee sting type sensation while gardening and note redness and swelling upper arm recently. Denies N/ T. Pt right handed. Has appt with Dr. Logan 08/24/23. Has been doing exercises at home; wall slide, pendulum; pendulum feels good, wall slide can get painful . Reports lifting arm overhead painful, especially about chest level, has to use right UE to assist left overhead, and reports severe pain when lowering back down. Reports very sensitive to the touch, difficulty reaching overhead and behind back painful, getting dressed painful. Has a set of pulleys but not sure if doing correctly. Went to massage therapist last week and pain increased after. Prior Treatments and Tests x-ray 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 07/24/23: moderate GH and AC joint arthritis Future Testing and Treatments Planned Dr. Logan 08/24/23 Treatment Goals Patient/Caregiver Goals decrease shoulder pain, be able resume normal activity lvel PT-OP-C Subjective Start: 08/05/23 15:32 Freq: Status: Active Protocol: Document 10/01/23 12:16 SP (Rec: 10/01/23 13:03 SP [id number]) OP-PT Subjective Patient Comments Patient Comments Pt reports R anterolateral ribcage still discomfort with breath today, flare up. PT-OP-F Manual Assessment Start: 08/05/23 15:32 Freq: Status: Active Protocol: Document 08/06/23 09:33 SAK (Rec: 08/07/23 08:46 SAK [id number]) Manual Assessments Joint Mobility Assessment Joint Mobility Assessment difficult to assess due to heavy guarding PT-OP-H Neuro Start: 08/05/23 15:32 Freq: Status: Active Protocol: Document 08/06/23 09:33 SAK (Rec: 08/07/23 08:46 SAK [id number]) Sensation Evaluation Gross Sensation Gross Sensation WNL PT-OP-J Posture/Palpation/Skin Start: 08/05/23 15:32 Freq: Status: Active Protocol: Document 08/06/23 09:33 SAK (Rec: 08/07/23 08:46 SAK [id number]) Posture Evaluation Position Sitting Head/C-Spine Posture C-Spine Flattened Shoulder Posture (L) Rounded,(R) Rounded PT-OP-K Range of Motion Start: 08/05/23 15:32 Freq: Status: Active Protocol: Document 08/06/23 09:33 SAK (Rec: 08/07/23 08:46 SAK [id number]) Shoulder Goniometric Range of Motion Shoulder Left Active Shoulder ROM WFL No Flexion 40 Extension 10 Abduction 35 External Rotation at 0 degrees Abduction 45 Internal Rotation Behind Back (text) L4 Right Shoulder ROM WFL Yes Shoulder ROM Limitations Shoulder ROM Limitations Pain Elbow/Forearm Range of Motion Elbow/Forearm tavares Elbow/Forearm ROM WFL Yes PT-OP-L Special Tests Start: 08/05/23 15:32 Freq: Status: Active Protocol: Document 08/06/23 09:33 SAK (Rec: 08/07/23 08:46 SAK [id number]) Special Tests Shoulder Special Tests Speed's Biceps Test Results - Passive ER Rotator Cuff Test Results +L Drop Arm Rotator Cuff Test Results +L Belly Press Test Results + L PT-OP-M Strength Start: 08/05/23 15:32 Freq: Status: Active Protocol: Document 08/06/23 09:33 SAK (Rec: 08/07/23 08:46 SAK [id number]) Shoulder Strength Shoulder Manual Muscle Testing Left Comments not tested due to severity of pain, less than anti-gravity strength Right Flexion 5 Normal Extension 5 Normal Abduction (C5) 5 Normal Adduction 5 Normal External Rotation 4 Good Internal Rotation 5 Normal PT-OP-Q Treatments Start: 08/05/23 15:32 Freq: Status: Active Protocol: Document 10/01/23 12:16 SP (Rec: 10/01/23 13:03 SP [id number]) Therapeutic Exercises Sidelying Exercises open book Sidelying Exercise Name reviewed HEP Side bilateral Resistance HABD and partial range snow angle Reps/Minutes 5x each side Comments cues for segmental movt, pain- free ROM but not touch table shoulder abd Side left Resistance PROM ok, AAROM approx 180 deg Reps/Minutes tactile caudal 1st rib Comments tactile cues for SA Press needed, decrease tension superior shld Standing Exercises IR stretch Standing Exercise Name HEP: R SI Resistance AROM> towel Reps/Minutes x2 Comments after STM and wall posture- tender ant shld but gained R SI ROM wall posture Standing Exercise Name HEP: shld ER, snow angle abd Resistance L more limited Reps/Minutes 5 min total Comments good head nod CS pos/arms side anatomical pos, NS CS/LS, Rhomb fac Manual Therapy Treatment Soft Tissue Mobilization R lateral ribcage Body Location T9 intercostals, prox ab Mobilization Type Sustained Pressure,Other Intensity/Depth Superficial Body Position Hooklying Comments manual and ed self gentle sustained pressure anterolateral ribcage intercostal with breath. paraspinals Body Location R>L Mobilization Type Rolling,Strumming,Trigger Point Release Intensity/Depth Moderate Body Position Sidelying Comments paraspinals, middle and lower trapezius mm R>L focus - possibly related to R rib soreness compensation UT Body Location L Mobilization Type Myofascial Release,Sustained Pressure Intensity/Depth Moderate Body Position Sidelying RC insertion Body Location L suprasp, infrasp, Teres Mobilization Type Cross-Friction,Strumming, Trigger Point Release Intensity/Depth Moderate Body Position Sidelying Comments circular strokes Joint Mobilizations ribs Joint T7 Comments follow inhale/exhale breath light pressure /c breath to allow increase ribcage expansion and self mobility improved performance scapula Joint L Direction protr,retr, sup,inf Body Position Sidelying Reps/Duration 3x ea Comments PROM, AAROM clocks, MWM abd/FF . 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 09/18/23: able to practice modified Qi Gog, feels compensation LTG Duration 10/07/23 Three Impairment ROM limitations Impairment 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 elevation 45 deg AROM, 125 PROM. Unable to reach behind her back 09/03/23: 135, painful to reach behind her back, can reach to L5 09/18/23: Reaching behind to T12 when warmed up, flexion 145, abduction 147 Short Term Goal (STG) Improve AROM 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 elevation to at least 110 degrees with 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 09/18/23: goal met STG Duration goal met Residential Goal (LTG) AROM elevation 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 to at least 155 deg, and internal rotation to L2 with 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 to allow her to return to usual activities LTG Duration 10/07/23 Two Impairment Activity tolerance Impairment QuickDash UE disability index score 81% Short Term Goal (STG) Decrease Quickdash score to no greater than 50% as measure of improved activity tolerance with left UE 09/03/23: dec to 41% 09/18/23: STG Duration 09/27/23 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 09/18/23: good goal progress LTG Duration 10/07/23 Assessment Summary Assessment Pt improved ribcage expansion and 1st rib mobility breath and AROM OH decreased to no pinching in L shld post manual and self ed MWM decreased intercostal mus tension application carryover home. Improved LUE AROM into HABD and ABD today. Physical Therapy Plan Frequency and Duration Frequency of Treatment 2x/Week Duration of treatment (weeks) 8 Plan of Care Start Date 08/06/23 Plan of Care End Date 10/07/23 Therapeutic Interventions Therapeutic Interventions Home Exercise Program,Joint Mobilizations,Manual Therapy, Patient/Caregiver Education, Self-Care/Home Management,Soft Tissue Mobilization,Taping, Therapeutic Activities, Therapeutic Exercises Modalities Cold Pack/Ice Massage,Electric Stimulation,Hot Packs, Infrared Therapy Next Visit Focus/Plan Next Note Type Treatment Note Next Visit Plan Review UT/LS stretches and i/s in self-STM w/ tennis ball and intercostal MWM if needed. Continue POC. POC: Add RTC TB next tx, continue side: ABD/FF AROM, trial small body bladed elbow at side POC: Continue gentle ther ex progression, cross friction massage. Iontophoresis as needed. Show picture of scapulohumeral rhythm for further reinforcement of scapular mechanics
--- NOTE | 2023-10-04 13:13 | PT.OTN ---
Current Diagnoses Primary osteoarthritis, 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 (10/04/23) Strain of muscle(s) and tendon(s) of the rotator cuff of 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, initial encounter (10/04/23) Physical Therapy Treatment Note PT-OP-A Visit Information Start: 08/05/23 15:32 Freq: Status: Active Protocol: Document 10/04/23 09:45 SAK (Rec: 10/04/23 11:18 SAK [id number]) Out-Patient Physical Therapy Visit Information Visit Information Visit Type Treatment Note Visit Start Time 09:45 Visit Stop Time 10:40 Visit Number 13 Number of DIRECTOR MEDICAL WRITING Visits 0 Evaluation Information Evaluation Date 09/18/23 Precautions Precautions osteoporosis, history cervical disc fusion 2013. PT-OP-B Current Condition Start: 08/05/23 15:32 Freq: Status: Active Protocol: Document 08/08/23 09:46 SAK (Rec: 08/08/23 10:33 SAK [id number]) Current Condition History of Current Condition Onset Date August 2022 Current Complaints 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 pain History of Current Condition doing side plank, felt and heard pop in 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, very painful, pain gradually mostly went away. Increased again after moving some awkward furniture 1 /month ago . Also felt bee sting type sensation while gardening and note redness and swelling upper arm recently. Denies N/ T. Pt right handed. Has appt with Dr. Logan 08/24/23. Has been doing exercises at home; wall slide, pendulum; pendulum feels good, wall slide can get painful . Reports lifting arm overhead painful, especially about chest level, has to use right UE to assist left overhead, and reports severe pain when lowering back down. Reports very sensitive to the touch, difficulty reaching overhead and behind back painful, getting dressed painful. Has a set of pulleys but not sure if doing correctly. Went to massage therapist last week and pain increased after. Prior Treatments and Tests x-ray 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 07/24/23: moderate GH and AC joint arthritis Future Testing and Treatments Planned Dr. Logan 08/24/23 Treatment Goals Patient/Caregiver Goals decrease shoulder pain, be able resume normal activity lvel PT-OP-C Subjective Start: 08/05/23 15:32 Freq: Status: Active Protocol: Document 10/04/23 09:45 SAK (Rec: 10/04/23 11:18 SAK [id number]) OP-PT Subjective Patient Comments Patient Comments Slowly but surely shoulder getting better. Was able to garden a little yesterdy Massage not helpful last PT session. States her massage therapist avoided the area around sore ribs. Patient Reported Progress Improving PT-OP-F Manual Assessment Start: 08/05/23 15:32 Freq: Status: Active Protocol: Document 08/06/23 09:33 SAK (Rec: 08/07/23 08:46 [facility] [id number]) Manual Assessments Joint Mobility Assessment Joint Mobility Assessment difficult to assess due to heavy guarding PT-OP-H Neuro Start: 08/05/23 15:32 Freq: Status: Active Protocol: Document 08/06/23 09:33 SAK (Rec: 08/07/23 08:46 [facility] [id number]) Sensation Evaluation Gross Sensation Gross Sensation WNL PT-OP-J Posture/Palpation/Skin Start: 08/05/23 15:32 Freq: Status: Active Protocol: Document 08/06/23 09:33 SAK (Rec: 08/07/23 08:46 [facility] [id number]) Posture Evaluation Position Sitting Head/C-Spine Posture C-Spine Flattened Shoulder Posture (L) Rounded,(R) Rounded PT-OP-K Range of Motion Start: 08/05/23 15:32 Freq: Status: Active Protocol: Document 08/06/23 09:33 SAK (Rec: 08/07/23 08:46 [facility] [id number]) Shoulder Goniometric Range of Motion Shoulder Left Active Shoulder ROM WFL No Flexion 40 Extension 10 Abduction 35 External Rotation at 0 degrees Abduction 45 Internal Rotation Behind Back (text) L4 Right Shoulder ROM WFL Yes Shoulder ROM Limitations Shoulder ROM Limitations Pain Elbow/Forearm Range of Motion Elbow/Forearm tavares Elbow/Forearm ROM WFL Yes PT-OP-L Special Tests Start: 08/05/23 15:32 Freq: Status: Active Protocol: Document 08/06/23 09:33 SAK (Rec: 08/07/23 08:46 [facility] [id number]) Special Tests Shoulder Special Tests Speed's Biceps Test Results - Passive ER Rotator Cuff Test Results +L Drop Arm Rotator Cuff Test Results +L Belly Press Test Results + L PT-OP-M Strength Start: 08/05/23 15:32 Freq: Status: Active Protocol: Document 08/06/23 09:33 SAK (Rec: 08/07/23 08:46 [facility] [id number]) Shoulder Strength Shoulder Manual Muscle Testing Left Comments not tested due to severity of pain, less than anti-gravity strength Right Flexion 5 Normal Extension 5 Normal Abduction (C5) 5 Normal Adduction 5 Normal External Rotation 4 Good Internal Rotation 5 Normal PT-OP-Q Treatments Start: 08/05/23 15:32 Freq: Status: Active Protocol: Document 10/04/23 09:45 [facility] (Rec: 10/04/23 11:18 [facility] [id number]) Therapeutic Exercises Supine Exercises PROM 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 Supine Exercise Name IR, ER Reps/Minutes pain-free ROM, Pain 50 deg IR Sidelying Exercises shoulder flex Sidelying Exercise Name scaption better tolerated Side left Resistance PROM>AAROM> AROM Reps/Minutes 5x shoulder abd Sidelying Exercise Name AAROM Side left Reps/Minutes 5x Comments tactile upward rotation scap Sitting Exercises BODY blade Sitting Exercise Name tavares hands 90 deg elbow flex, fwd/bck, 90/90 fwd/bck, side Reps/Minutes 5 min UT, LS stretching Sitting Exercise Name 1. UT 2. LS Resistance R>L tightness post manual Reps/Minutes [id number] Comments added to HEP shld shrugs Sitting Exercise Name il and unil Reps/Minutes 5x5 Comments focus on breath and full relaxation between reps Standing Exercises triceps Resistance L1 TB Reps/Minutes 10 biceps Resistance 2# Reps/Minutes 10 Body blade Standing Exercise Name tavares hvac design mechanical engineer fwd/bck, single hvac design mechanical engineer fwd/bck, side at 90/90 Equipment Used small body blade Reps/Minutes 30 sec ea tavares IR stretch Standing Exercise Name HEP: R SI Resistance AROM> towel Reps/Minutes x2 Comments after STM and wall posture- tender ant shld but gained R SI ROM wall posture Standing Exercise Name HEP: shld ER, snow angle abd Resistance L more limited Reps/Minutes 5 min total Comments good head nod CS pos/arms side anatomical pos, NS CS/LS, Rhomb fac Manual Therapy Treatment Joint Mobilizations GH Direction long axis distr, inf glide Body Position Supine Reps/Duration 2 min 1st rib Direction inf glide Reps/Duration 2 min Self-Care/Home Management Treatment Education Patient Education Home Exercise Program,Pain Management,Posture,Safety Other Education lifting technique, elbows in ( T-Shant arms) PT-OP-R Modalities Start: 08/05/23 15:32 Freq: Status: Active Protocol: Document 09/24/23 13:03 NBM (Rec: 09/24/23 17:54 NBM [id number]) Hot Pack/Cold Pack Treatment ice pack Location 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 Patient Position Hooklying Patient Tolerance Good Comments 10 min PT-OP-T Assessment and Plan Start: 08/05/23 15:32 Freq: Status: Active Protocol: Document 10/04/23 09:45 SAK (Rec: 10/04/23 11:18 SAK [id number]) Physical Therapy Assessment Goals 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 09/18/23: able to practice modified Qi Gog, feels compensation 10/04/23: reports still feels she babies her shoulder, can't fully perform or teach LTG Duration 10/07/23 Three Impairment ROM limitations Impairment 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 elevation 45 deg AROM, 125 PROM. Unable to reach behind her back 09/03/23: 135, painful to reach behind her back, can reach to L5 09/18/23: Reaching behind to T12 when warmed up, flexion 145, abduction 147 Short Term Goal (STG) Improve AROM 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 elevation to at least 110 degrees with 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 09/18/23: goal met STG Duration goal met Technical Spec Goal (LTG) AROM elevation 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 to at least 155 deg, and internal rotation to L2 with 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 to allow her to return to usual activities 10/04/23: good goal progress, not fullky achieved, pain with IR but can reach L4, elevation to 155. LTG Duration 10/07/23 Two Impairment Activity tolerance Impairment QuickDash UE disability index score 81% Short Term Goal (STG) Decrease Quickdash score to no greater than 50% as measure of improved activity tolerance with left UE 09/03/23: dec to 41% 09/18/23:goal met STG Duration goal met Correction Goal (LTG) Decrease Quickdash score to no greater than 20% as measure of improved activity tolerance with left UE 10/04/23: 33% good goal progress . Lifting only very minimally , light objects LTG Duration 10/07/23 One Impairment severe pain 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 with movement especially overhead and behind back Short Term Goal (STG) Decrease pain by at least 50% at rest 09/03/23: goal met STG Duration goal met Correction Goal (LTG) Decrease pain by at least 75% with all usual activities including ability to reach overhead and behind her back for ADL's and usual household activities. 09/18/23: good goal progress 10/04/23: dec by 60% LTG Duration 10/07/23 Assessment Summary Assessment Patient continues to progress with decreasing pain and improved ROM and functional use of her shoulder as above. Still cautious and careful with shoulder use, some pain with elevation and internal rotation. Able to add Body Blade ex today for stabilization and patient demonstrating much improved scapular mobility and scapulohumeral rhythm, Has potential for further improvement. Recommend further PT to help her fully achieve her goals and return to full active use of her 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. Physical Therapy Plan Frequency and Duration Frequency of Treatment 2x/Week Duration of treatment (weeks) 4 Plan of Care Start Date 10/04/23 Plan of Care End Date 11/02/23 Therapeutic Interventions Therapeutic Interventions Home Exercise Program,Joint Mobilizations,Manual Therapy, Patient/Caregiver Education, Self-Care/Home Management,Soft Tissue Mobilization,Taping, Therapeutic Activities, Therapeutic Exercises Modalities Cold Pack/Ice Massage,Electric Stimulation,Hot Packs, Infrared Therapy Next Visit Focus/Plan Next Note Type Treatment Note Next Visit Plan Continue 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 ROM and strengthening as tolerated to address goals as above. Trial 90/ shoulder IR and ER with theraband possibly with UE supported.
--- NOTE | 2023-10-04 13:17 | PT.OTRE ---
Current Diagnoses Primary osteoarthritis, 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 (10/04/23) Strain of muscle(s) and tendon(s) of the rotator cuff of 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, initial encounter (10/04/23) Past Medical History (Last Updated 01/30/23 @ 13:53 by Loren Desouza DO) Cervical spine disease (~1994) Chickenpox (~1957) Chronic neck and back pain (~2003) Colon polyps (~2017) Encounter for subsequent annual wellness visit (AWV) in Medicare patient Fibroids (~1991) Foot pain (~2007) Hemorrhoids (~2017) Knee osteoarthritis Measles (~1958) Mumps (~1959) Optic disc cupping (~1992) Osteopenia (~2007) Osteoporosis Osteoporosis (~2015) Seasonal allergies Venous insufficiency (~2013) Surgical History (Last Reviewed 07/25/22 @ 15:46 by Juan Manuel Samano MD) Anesthesia History of appendectomy (~1963) History of section (~1980) History of section (~1988) History of hysterectomy (~1992) History of sinus surgery (~1990) History of surgical fusion joint (~2009) Visit Care Team Role Provider Type Loren Desouza DO Family Provider Physician Primary Care Provider Specialty: Family Practice Address: [address] [place] [address], [place] [address] Email: [email or web address] Attending Provider Advanced Drop Forge Hand Referring Provider Specialty: Medical Wound Care Address: [address] [place] [address] Email: [email or web address] Physical Therapy Re-Evaluation PT-OP-A Visit Information Start: 08/05/23 15:32 Freq: Status: Active Protocol: Document 10/04/23 09:45 LEVAR (Rec: 10/04/23 11:18 SAK [id number]) Out-Patient Physical Therapy Visit Information Visit Information Visit Type Treatment Note Visit Start Time 09:45 Visit Stop Time 10:40 Visit Number 13 Number of COMPANY ACCOUNTANT Visits 0 Evaluation Information Evaluation Date 09/18/23 Precautions Precautions osteoporosis, history cervical disc fusion 2013. PT-OP-B Current Condition Start: 08/05/23 15:32 Freq: Status: Active Protocol: Document 08/08/23 09:46 SAK (Rec: 08/08/23 10:33 [facility] [id number]) Current Condition History of Current Condition Onset Date August 2022 Current Complaints 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 pain History of Current Condition doing side plank, felt and heard pop in 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, very painful, pain gradually mostly went away. Increased again after moving some awkward furniture 1 /month ago . Also felt bee sting type sensation while gardening and note redness and swelling upper arm recently. Denies N/ T. Pt right handed. Has appt with Dr. Logan 08/24/23. Has been doing exercises at home; wall slide, pendulum; pendulum feels good, wall slide can get painful . Reports lifting arm overhead painful, especially about chest level, has to use right UE to assist left overhead, and reports severe pain when lowering back down. Reports very sensitive to the touch, difficulty reaching overhead and behind back painful, getting dressed painful. Has a set of pulleys but not sure if doing correctly. Went to massage therapist last week and pain increased after. Prior Treatments and Tests x-ray 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 07/24/23: moderate GH and AC joint arthritis Future Testing and Treatments Planned Dr. Logan 08/24/23 Treatment Goals Patient/Caregiver Goals decrease shoulder pain, be able resume normal activity lvel PT-OP-C Subjective Start: 08/05/23 15:32 Freq: Status: Active Protocol: Document 10/04/23 09:45 SAK (Rec: 10/04/23 11:18 [facility] [id number]) OP-PT Subjective Patient Comments Patient Comments Slowly but surely shoulder getting better. Was able to garden a little yesterdy Massage not helpful last PT session. States her massage therapist avoided the area around sore ribs. Patient Reported Progress Improving PT-OP-F Manual Assessment Start: 08/05/23 15:32 Freq: Status: Active Protocol: Document 08/06/23 09:33 SAK (Rec: 08/07/23 08:46 [facility] [id number]) Manual Assessments Joint Mobility Assessment Joint Mobility Assessment difficult to assess due to heavy guarding PT-OP-H Neuro Start: 08/05/23 15:32 Freq: Status: Active Protocol: Document 08/06/23 09:33 SAK (Rec: 08/07/23 08:46 SAK [id number]) Sensation Evaluation Gross Sensation Gross Sensation WNL PT-OP-J Posture/Palpation/Skin Start: 08/05/23 15:32 Freq: Status: Active Protocol: Document 08/06/23 09:33 SAK (Rec: 08/07/23 08:46 [facility] [id number]) Posture Evaluation Position Sitting Head/C-Spine Posture C-Spine Flattened Shoulder Posture (L) Rounded,(R) Rounded PT-OP-K Range of Motion Start: 08/05/23 15:32 Freq: Status: Active Protocol: Document 08/06/23 09:33 SAK (Rec: 08/07/23 08:46 [facility] [id number]) Shoulder Goniometric Range of Motion Shoulder Measured in Degrees Left Active Shoulder ROM WFL No Flexion 40 Extension 10 Abduction 35 External Rotation at 0 degrees Abduction 45 Internal Rotation Behind Back (text) L4 Right Shoulder ROM WFL Yes Shoulder ROM Limitations Shoulder ROM Limitations Pain Elbow/Forearm Range of Motion Elbow/Forearm Measured in Degrees tavares Elbow/Forearm ROM WFL Yes PT-OP-L Special Tests Start: 08/05/23 15:32 Freq: Status: Active Protocol: Document 08/06/23 09:33 [facility] (Rec: 08/07/23 08:46 [facility] [id number]) Special Tests Shoulder Special Tests Speed's Biceps Test Results - Passive ER Rotator Cuff Test Results +L Drop Arm Rotator Cuff Test Results +L Belly Press Test Results + L PT-OP-M Strength Start: 08/05/23 15:32 Freq: Status: Active Protocol: Document 08/06/23 09:33 SAK (Rec: 08/07/23 08:46 [facility] [id number]) Shoulder Strength Shoulder Manual Muscle Testing Left Comments not tested due to severity of pain, less than anti-gravity strength Right Flexion 5 Normal Extension 5 Normal Abduction (C5) 5 Normal Adduction 5 Normal External Rotation 4 Good Internal Rotation 5 Normal PT-OP-Q Treatments Start: 08/05/23 15:32 Freq: Status: Active Protocol: Document 10/04/23 09:45 SAK (Rec: 10/04/23 11:18 SAK [id number]) Therapeutic Exercises Supine Exercises PROM 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 Supine Exercise Name IR, ER Reps/Minutes pain-free ROM, Pain 50 deg IR Sidelying Exercises shoulder flex Sidelying Exercise Name scaption better tolerated Side left Resistance PROM>AAROM> AROM Reps/Minutes 5x shoulder abd Sidelying Exercise Name AAROM Side left Reps/Minutes 5x Comments tactile upward rotation scap Sitting Exercises BODY blade Sitting Exercise Name tavares hands 90 deg elbow flex, fwd/bck, 90/90 fwd/bck, side Reps/Minutes 5 min UT, LS stretching Sitting Exercise Name 1. UT 2. LS Resistance R>L tightness post manual Reps/Minutes [id number] Comments added to HEP shld shrugs Sitting Exercise Name il and unil Reps/Minutes 5x5 Comments focus on breath and full relaxation between reps Standing Exercises triceps Resistance L1 TB Reps/Minutes 10 biceps Resistance 2# Reps/Minutes 10 Body blade Standing Exercise Name tavares spice grinder fwd/bck, single spice grinder fwd/bck, side at 90/90 Equipment Used small body blade Reps/Minutes 30 sec ea tavares IR stretch Standing Exercise Name HEP: R SI Resistance AROM> towel Reps/Minutes x2 Comments after STM and wall posture- tender ant shld but gained R SI ROM wall posture Standing Exercise Name HEP: shld ER, snow angle abd Resistance L more limited Reps/Minutes 5 min total Comments good head nod CS pos/arms side anatomical pos, NS CS/LS, Rhomb fac Manual Therapy Treatment Joint Mobilizations GH Direction long axis distr, inf glide Body Position Supine Reps/Duration 2 min 1st rib Direction inf glide Reps/Duration 2 min Self-Care/Home Management Treatment Education Patient Education Home Exercise Program,Pain Management,Posture,Safety Other Education lifting technique, elbows in ( T-Shant arms) PT-OP-R Modalities Start: 08/05/23 15:32 Freq: Status: Active Protocol: Document 09/24/23 13:03 [facility] (Rec: 09/24/23 17:54 [facility] [id number]) Hot Pack/Cold Pack Treatment ice pack Location 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 Patient Position Hooklying Patient Tolerance Good Comments 10 min PT-OP-T Assessment and Plan Start: 08/05/23 15:32 Freq: Status: Active Protocol: Document 10/04/23 09:45 SAK (Rec: 10/04/23 11:18 SAK [id number]) Physical Therapy Assessment Goals 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 09/18/23: able to practice modified Qi Gog, feels compensation 10/04/23: reports still feels she babies her shoulder, can't fully perform or teach LTG Duration 10/07/23 Three Impairment ROM limitations Impairment 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 elevation 45 deg AROM, 125 PROM. Unable to reach behind her back 09/03/23: 135, painful to reach behind her back, can reach to L5 09/18/23: Reaching behind to T12 when warmed up, flexion 145, abduction 147 Short Term Goal (STG) Improve AROM left shoulder elevation to at least 110 degrees with 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 09/18/23: goal met STG Duration goal met Stoker Erector And Servicer Goal (LTG) AROM elevation left shoulder to at least 155 deg, and internal rotation to L2 with 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 to allow her to return to usual activities 10/04/23: good goal progress, not fullky achieved, pain with IR but can reach L4, elevation to 155. LTG Duration 10/07/23 Two Impairment Activity tolerance Impairment QuickDash UE disability index score 81% Short Term Goal (STG) Decrease Quickdash score to no greater than 50% as measure of improved activity tolerance with left UE 09/03/23: dec to 41% 09/18/23:goal met STG Duration goal met Assisted Goal (LTG) Decrease Quickdash score to no greater than 20% as measure of improved activity tolerance with left UE 10/04/23: 33% good goal progress . Lifting only very minimally , light objects LTG Duration 10/07/23 One Impairment severe pain left shoulder with movement especially overhead and behind back Short Term Goal (STG) Decrease pain by at least 50% at rest 09/03/23: goal met STG Duration goal met Stoker Erector And Servicer Goal (LTG) Decrease pain by at least 75% with all usual activities including ability to reach overhead and behind her back for ADL's and usual household activities. 09/18/23: good goal progress 10/04/23: dec by 60% LTG Duration 10/07/23 Assessment Summary Assessment Patient continues to progress with decreasing pain and improved ROM and functional use of her shoulder as above. Still cautious and careful with shoulder use, some pain with elevation and internal rotation. Able to add Body Blade ex today for stabilization and patient demonstrating much improved scapular mobility and scapulohumeral rhythm, Has potential for further improvement. Recommend further PT to help her fully achieve her goals and return to full active use of her left shoulder. Physical Therapy Plan Frequency and Duration Frequency of Treatment 2x/Week Duration of treatment (weeks) 4 Plan of Care Start Date 10/04/23 Plan of Care End Date 11/02/23 Therapeutic Interventions Therapeutic Interventions Home Exercise Program,Joint Mobilizations,Manual Therapy, Patient/Caregiver Education, Self-Care/Home Management,Soft Tissue Mobilization,Taping, Therapeutic Activities, Therapeutic Exercises Modalities Cold Pack/Ice Massage,Electric Stimulation,Hot Packs, Infrared Therapy Next Visit Focus/Plan Next Note Type Treatment Note Next Visit Plan Continue left shoulder ROM and strengthening as tolerated to address goals as above. Trial 90/90 shoulder IR and ER with theraband possibly with UE supported.
--- NOTE | 2023-10-04 13:18 | PT.OPPOC ---
Physical, Occupational & Speech Therapy At [facility] Current Diagnoses Primary osteoarthritis, 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 (10/04/23) Strain of muscle(s) and tendon(s) of the rotator cuff of 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, initial encounter (10/04/23) Visit Care Team Role Provider Type Loren Desouza DO Family Provider Physician Primary Care Provider Specialty: Family Practice Address: [address] [place] [address], [address], [address] Email: [email or web address] Attending Provider Advanced Applied Statistician Referring Provider Specialty: Medical Wound Care Address: [address] [place] [address], [id number] Email: [email or web address] Plan Of Care PT-OP-T Assessment and Plan Start: 08/05/23 15:32 Freq: Status: Active Protocol: Document 10/04/23 09:45 [facility] (Rec: 10/04/23 11:18 [facility] [id number]) Physical Therapy Assessment Goals 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 09/18/23: able to practice modified Qi Gog, feels compensation 10/04/23: reports still feels she babies her shoulder, can't fully perform or teach LTG Duration 10/07/23 Three Impairment ROM limitations Impairment left shoulder elevation 45 deg AROM, 125 PROM. Unable to reach behind her back 09/03/23: 135, painful to reach behind her back, can reach to L5 09/18/23: Reaching behind to T12 when warmed up, flexion 145, abduction 147 Short Term Goal (STG) Improve AROM left shoulder elevation to at least 110 degrees with 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 09/18/23: goal met STG Duration goal met Alf Goal (LTG) AROM elevation left shoulder to at least 155 deg, and internal rotation to L2 with 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 to allow her to return to usual activities 10/04/23: good goal progress, not fullky achieved, pain with IR but can reach L4, elevation to 155. LTG Duration 10/07/23 Two Impairment Activity tolerance Impairment QuickDash UE disability index score 81% Short Term Goal (STG) Decrease Quickdash score to no greater than 50% as measure of improved activity tolerance with left UE 09/03/23: dec to 41% 09/18/23:goal met STG Duration goal met Traffic Lieutenant Goal (LTG) Decrease Quickdash score to no greater than 20% as measure of improved activity tolerance with left UE 10/04/23: 33% good goal progress . Lifting only very minimally , light objects LTG Duration 10/07/23 One Impairment severe pain left shoulder with movement especially overhead and behind back Short Term Goal (STG) Decrease pain by at least 50% at rest 09/03/23: goal met STG Duration goal met Alf Goal (LTG) Decrease pain by at least 75% with all usual activities including ability to reach overhead and behind her back for ADL's and usual household activities. 09/18/23: good goal progress 10/04/23: dec by 60% LTG Duration 10/07/23 Assessment Summary Assessment Patient continues to progress with decreasing pain and improved ROM and functional use of her shoulder as above. Still cautious and careful with shoulder use, some pain with elevation and internal rotation. Able to add Body Blade ex today for stabilization and patient demonstrating much improved scapular mobility and scapulohumeral rhythm, Has potential for further improvement. Recommend further PT to help her fully achieve her goals and return to full active use of her left shoulder. Physical Therapy Plan Frequency and Duration Frequency of Treatment 2x/Week Duration of treatment (weeks) 4 Plan of Care Start Date 10/04/23 Plan of Care End Date 11/02/23 Therapeutic Interventions Therapeutic Interventions Home Exercise Program,Joint Mobilizations,Manual Therapy, Patient/Caregiver Education, Self-Care/Home Management,Soft Tissue Mobilization,Taping, Therapeutic Activities, Therapeutic Exercises Modalities Cold Pack/Ice Massage,Electric Stimulation,Hot Packs, Infrared Therapy Next Visit Focus/Plan Next Note Type Treatment Note Next Visit Plan Continue left shoulder ROM and strengthening as tolerated to address goals as above. Trial shoulder IR and ER with theraband possibly with UE supported. Plan of Care Dates Plan of Care Start Date 10/04/23 Plan of Care End Date 11/02/23 Electronically Signed by: Ania Palacio, PT 10/04/23 1925 If you are in agreement with this Plan of Care, please return a signed and dated copy. I have reviewed this Plan of Care and certify that the skilled therapy services above are required to meet the patient?s needs. Physician Signature Date Printed Name and Credentials Clinical Instructor Signature Printed Name and Credentials
--- NOTE | 2023-10-10 15:35 | PT.OTN ---
Current Diagnoses Primary osteoarthritis, 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 (10/10/23) Strain of muscle(s) and tendon(s) of the rotator cuff of 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, initial encounter (10/10/23) Physical Therapy Treatment Note PT-OP-A Visit Information Start: 08/05/23 15:32 Freq: Status: Active Protocol: Document 10/10/23 12:58 SAK (Rec: 10/10/23 13:47 [facility] [id number]) Out-Patient Physical Therapy Visit Information Visit Information Visit Type Treatment Note Visit Start Time 13:00 Visit Stop Time 13:44 Visit Number 14 Number of PROTECTION MANAGER Visits 0 Evaluation Information Evaluation Date 09/18/23 Precautions Precautions osteoporosis, history cervical disc fusion 2013. PT-OP-B Current Condition Start: 08/05/23 15:32 Freq: Status: Active Protocol: Document 10/10/23 12:58 SAK (Rec: 10/10/23 13:47 [facility] [id number]) Current Condition History of Current Condition Onset Date August 2022 Current Complaints left shoulder pain History of Current Condition doing side plank, felt and heard pop in left shoulder, very painful, pain gradually mostly went away. Increased again after moving some awkward furniture 1 /month ago . Also felt bee sting type sensation while gardening and note redness and swelling upper arm recently. Denies N/ T. Pt right handed. Has appt with Dr. Logan 08/24/23. Has been doing exercises at home; wall slide, pendulum; pendulum feels good, wall slide can get painful . Reports lifting arm overhead painful, especially about chest level, has to use right UE to assist left overhead, and reports severe pain when lowering back down. Reports very sensitive to the touch, difficulty reaching overhead and behind back painful, getting dressed painful. Has a set of pulleys but not sure if doing correctly. Went to massage therapist last week and pain increased after. Prior Treatments and Tests x-ray left shoulder 07/24/23: moderate GH and AC joint arthritis Future Testing and Treatments Planned Dr. Logan 08/24/23 PT-OP-C Subjective Start: 08/05/23 15:32 Freq: Status: Active Protocol: Document 10/10/23 12:58 SAK (Rec: 10/10/23 13:47 [facility] [id number]) OP-PT Subjective Patient Comments Patient Comments Went through exercises this am and reports it was ok some modifications . Still has to modify QiGong some. Able to do some gardening yesterday without flaring up her shoulder. Ribs improved. Internal rotation can still be painful but motion improved Patient Reported Progress Improving PT-OP-F Manual Assessment Start: 08/05/23 15:32 Freq: Status: Active Protocol: Document 08/06/23 09:33 SAK (Rec: 08/07/23 08:46 SAK [id number]) Manual Assessments Joint Mobility Assessment Joint Mobility Assessment difficult to assess due to heavy guarding PT-OP-H Neuro Start: 08/05/23 15:32 Freq: Status: Active Protocol: Document 08/06/23 09:33 SAK (Rec: 08/07/23 08:46 SAK [id number]) Sensation Evaluation Gross Sensation Gross Sensation WNL PT-OP-J Posture/Palpation/Skin Start: 08/05/23 15:32 Freq: Status: Active Protocol: Document 08/06/23 09:33 SAK (Rec: 08/07/23 08:46 SAK [id number]) Posture Evaluation Position Sitting Head/C-Spine Posture C-Spine Flattened Shoulder Posture (L) Rounded,(R) Rounded PT-OP-K Range of Motion Start: 08/05/23 15:32 Freq: Status: Active Protocol: Document 08/06/23 09:33 SAK (Rec: 08/07/23 08:46 SAK [id number]) Shoulder Goniometric Range of Motion Shoulder Left Active Shoulder ROM WFL No Flexion 40 Extension 10 Abduction 35 External Rotation at 0 degrees Abduction 45 Internal Rotation Behind Back (text) L4 Right Shoulder ROM WFL Yes Shoulder ROM Limitations Shoulder ROM Limitations Pain Elbow/Forearm Range of Motion Elbow/Forearm tavares Elbow/Forearm ROM WFL Yes PT-OP-L Special Tests Start: 08/05/23 15:32 Freq: Status: Active Protocol: Document 08/06/23 09:33 SAK (Rec: 08/07/23 08:46 SAK [id number]) Special Tests Shoulder Special Tests Speed's Biceps Test Results - Passive ER Rotator Cuff Test Results +L Drop Arm Rotator Cuff Test Results +L Belly Press Test Results + L PT-OP-M Strength Start: 08/05/23 15:32 Freq: Status: Active Protocol: Document 08/06/23 09:33 SAK (Rec: 08/07/23 08:46 SAK [id number]) Shoulder Strength Shoulder Manual Muscle Testing Left Comments not tested due to severity of pain, less than anti-gravity strength Right Flexion 5 Normal Extension 5 Normal Abduction (C5) 5 Normal Adduction 5 Normal External Rotation 4 Good Internal Rotation 5 Normal PT-OP-Q Treatments Start: 08/05/23 15:32 Freq: Status: Active Protocol: Document 10/10/23 12:58 [facility] (Rec: 10/10/23 13:47 [facility] [id number]) Therapeutic Exercises Supine Exercises PROM left shoulder Supine Exercise Name IR, ER Reps/Minutes pain-free ROM, Pain 50 deg IR Comments end-range stretch into IR Sitting Exercises shoulder ER, IR Sitting Exercise Name 90/90 position arm supported on plinth Equipment Used L1 TB Reps/Minutes 10x BODY blade Sitting Exercise Name tavares hands 90 deg elbow flex, fwd/bck, 90/90 fwd/bck, side Resistance med Reps/Minutes 30 sec ea pulleys Sitting Exercise Name flex, scap, abd- HEP reviewed Side left Equipment Used mirror Reps/Minutes 10x each Comments Cued elbow straight, level shld, cues for breathing, dec UT activation shld shrugs Sitting Exercise Name il and unil Reps/Minutes 5x5 Comments focus on breath and full relaxation between reps Standing Exercises shoulder add Equipment Used L1 TB Reps/Minutes 10x Body blade Standing Exercise Name tavares plasma center nurse fwd/bck, single plasma center nurse fwd/bck, side at 90/90 Equipment Used med body blade Reps/Minutes 30 sec ea tavares wall posture Standing Exercise Name shld ER, snow angle abd Resistance L more limited Reps/Minutes 5 min total Manual Therapy Treatment Soft Tissue Mobilization left lateral pec Mobilization Type Myofascial Release,Sustained Pressure Intensity/Depth Moderate Joint Mobilizations GH Direction long axis distr, inf glide Body Position Supine Reps/Duration 2 min 1st rib Direction inf glide Reps/Duration 2 min Self-Care/Home Management Treatment Education Patient Education Home Exercise Program,Pain Management,Posture,Safety PT-OP-R Modalities Start: 08/05/23 15:32 Freq: Status: Active Protocol: Document 09/24/23 13:03 ALAN (Rec: 09/24/23 17:54 NB [id number]) Hot Pack/Cold Pack Treatment ice pack Location left shoulder Patient Position Hooklying Patient Tolerance Good Comments 10 min PT-OP-T Assessment and Plan Start: 12/10/23 15:32 Freq: Status: Active Protocol: Document 10/10/23 12:58 LEVAR (Rec: 10/10/23 13:47 [facility] [id number]) Physical Therapy Assessment Goals 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 09/18/23: able to practice modified Qi Gog, feels compensation 10/04/23: reports still feels she babies her shoulder, can't fully perform or teach LTG Duration 11/02/23 Three Impairment ROM limitations Impairment left shoulder elevation 45 deg AROM, 125 PROM. Unable to reach behind her back 09/03/23: 135, painful to reach behind her back, can reach to L5 09/18/23: Reaching behind to T12 when warmed up, flexion 145, abduction 147 Short Term Goal (STG) Improve AROM left shoulder elevation to at least 110 degrees with 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 09/18/23: goal met STG Duration goal met Residential Goal (LTG) AROM elevation left shoulder to at least 155 deg, and internal rotation to L2 with 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 to allow her to return to usual activities 10/04/23: good goal progress, not fullky achieved, pain with IR but can reach L4, elevation to 155. LTG Duration 11/02/23 Two Impairment Activity tolerance Impairment QuickDash UE disability index score 81% Short Term Goal (STG) Decrease Quickdash score to no greater than 50% as measure of improved activity tolerance with left UE 09/03/23: dec to 41% 09/18/23:goal met STG Duration goal met Design Coordinator Goal (LTG) Decrease Quickdash score to no greater than 20% as measure of improved activity tolerance with left UE 10/04/23: 33% good goal progress . Lifting only very minimally , light objects LTG Duration 11/02/23 One Impairment severe pain left shoulder with movement especially overhead and behind back Short Term Goal (STG) Decrease pain by at least 50% at rest 09/03/23: goal met STG Duration goal met Design Coordinator Goal (LTG) Decrease pain by at least 75% with all usual activities including ability to reach overhead and behind her back for ADL's and usual household activities. 09/18/23: good goal progress 10/04/23: dec by 60% LTG Duration 11/02/23 Progress Towards Goals Progress Towards Goals Progressing Toward Goals Assessment Summary Assessment Continues to improve with decreased pain and improved pain-free ROM, some modifications of movement have to be made due to pain. Working exercises into her day , doing modified [place] Physical Therapy Plan Frequency and Duration Frequency of Treatment 2x/Week Duration of treatment (weeks) 4 Plan of Care Start Date 10/04/23 Plan of Care End Date 11/02/23 Therapeutic Interventions Therapeutic Interventions Home Exercise Program,Joint Mobilizations,Manual Therapy, Patient/Caregiver Education, Self-Care/Home Management,Soft Tissue Mobilization,Taping, Therapeutic Activities, Therapeutic Exercises Modalities Cold Pack/Ice Massage,Electric Stimulation,Hot Packs, Infrared Therapy Next Visit Focus/Plan Next Note Type Treatment Note Next Visit Plan Review 90/90 IR and ER, wall posture, MWM for shoulder IR. Continue strengthening; consider upright row, 90/90 lateral raise
--- NOTE | 2023-10-15 09:02 | PT.OTN ---
Current Diagnoses Primary osteoarthritis, 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 (10/15/23) Strain of muscle(s) and tendon(s) of the rotator cuff of 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, initial encounter (10/15/23) Physical Therapy Treatment Note PT-OP-A Visit Information Start: 08/05/23 15:32 Freq: Status: Active Protocol: Document 10/15/23 08:11 SAK (Rec: 10/15/23 09:02 [facility] [id number]) Out-Patient Physical Therapy Visit Information Visit Information Visit Type Treatment Note Visit Start Time 08:15 Visit Stop Time 08:58 Visit Number 15 Number of MENTAL TESTER Visits 0 Evaluation Information Evaluation Date 09/18/23 Precautions Precautions osteoporosis, history cervical disc fusion 2013. PT-OP-B Current Condition Start: 08/05/23 15:32 Freq: Status: Active Protocol: Document 10/15/23 08:11 SAK (Rec: 10/15/23 09:02 [facility] [id number]) Current Condition History of Current Condition Onset Date August 2022 Current Complaints left shoulder pain History of Current Condition doing side plank, felt and heard pop in left shoulder, very painful, pain gradually mostly went away. Increased again after moving some awkward furniture 1 /month ago . Also felt bee sting type sensation while gardening and note redness and swelling upper arm recently. Denies N/ T. Pt right handed. Has appt with Dr. Logan 08/24/23. Has been doing exercises at home; wall slide, pendulum; pendulum feels good, wall slide can get painful . Reports lifting arm overhead painful, especially about chest level, has to use right UE to assist left overhead, and reports severe pain when lowering back down. Reports very sensitive to the touch, difficulty reaching overhead and behind back painful, getting dressed painful. Has a set of pulleys but not sure if doing correctly. Went to massage therapist last week and pain increased after. Prior Treatments and Tests x-ray left shoulder 07/24/23: moderate GH and AC joint arthritis Future Testing and Treatments Planned Dr. Logan 08/24/23 PT-OP-C Subjective Start: 08/05/23 15:32 Freq: Status: Active Protocol: Document 10/15/23 08:11 SAK (Rec: 10/15/23 09:02 [facility] [id number]) OP-PT Subjective Patient Comments Patient Comments Getting a migraine this am, now just has to run its course . Shoulder not grabbing me like it was. PT-OP-F Manual Assessment Start: 08/05/23 15:32 Freq: Status: Active Protocol: Document 08/06/23 09:33 SAK (Rec: 08/07/23 08:46 SAK [id number]) Manual Assessments Joint Mobility Assessment Joint Mobility Assessment difficult to assess due to heavy guarding PT-OP-H Neuro Start: 08/05/23 15:32 Freq: Status: Active Protocol: Document 08/06/23 09:33 SAK (Rec: 08/07/23 08:46 SAK [id number]) Sensation Evaluation Gross Sensation Gross Sensation WNL PT-OP-J Posture/Palpation/Skin Start: 08/05/23 15:32 Freq: Status: Active Protocol: Document 08/06/23 09:33 SAK (Rec: 08/07/23 08:46 SAK [id number]) Posture Evaluation Position Sitting Head/C-Spine Posture C-Spine Flattened Shoulder Posture (L) Rounded,(R) Rounded PT-OP-K Range of Motion Start: 08/05/23 15:32 Freq: Status: Active Protocol: Document 08/06/23 09:33 SAK (Rec: 08/07/23 08:46 SAK [id number]) Shoulder Goniometric Range of Motion Shoulder Left Active Shoulder ROM WFL No Flexion 40 Extension 10 Abduction 35 External Rotation at 0 degrees Abduction 45 Internal Rotation Behind Back (text) L4 Right Shoulder ROM WFL Yes Shoulder ROM Limitations Shoulder ROM Limitations Pain Elbow/Forearm Range of Motion Elbow/Forearm tavares Elbow/Forearm ROM WFL Yes PT-OP-L Special Tests Start: 08/05/23 15:32 Freq: Status: Active Protocol: Document 08/06/23 09:33 SAK (Rec: 08/07/23 08:46 SAK [id number]) Special Tests Shoulder Special Tests Speed's Biceps Test Results - Passive ER Rotator Cuff Test Results +L Drop Arm Rotator Cuff Test Results +L Belly Press Test Results + L PT-OP-M Strength Start: 08/05/23 15:32 Freq: Status: Active Protocol: Document 08/06/23 09:33 SAK (Rec: 08/07/23 08:46 SAK [id number]) Shoulder Strength Shoulder Manual Muscle Testing Left Comments not tested due to severity of pain, less than anti-gravity strength Right Flexion 5 Normal Extension 5 Normal Abduction (C5) 5 Normal Adduction 5 Normal External Rotation 4 Good Internal Rotation 5 Normal PT-OP-Q Treatments Start: 08/05/23 15:32 Freq: Status: Active Protocol: Document 10/15/23 08:11 [facility] (Rec: 10/15/23 09:02 [facility] [id number]) Therapeutic Exercises Supine Exercises shoulder stab Equipment Used 55 cm ball Comments manual resistance shoulder flex Equipment Used wand, TB Reps/Minutes 10x, 10x Sitting Exercises shoulder ER, IR Sitting Exercise Name 90/90 position arm supported on plinth Reps/Minutes 10x Comments pain-free ROM, cues for engage scapular muscles BODY blade Sitting Exercise Name tavares hands 90 deg elbow flex, fwd/bck, 90/90 fwd/bck, side Resistance med Reps/Minutes 30 sec ea UT, LS stretching Sitting Exercise Name 1. UT 2. LS Resistance R>L tightness post manual Reps/Minutes [id number] Comments added to HEP pulleys Sitting Exercise Name flex, scap, abd- HEP reviewed Side left Equipment Used mirror Reps/Minutes 10x each Comments Cued elbow straight, level shld, cues for breathing, dec UT activation scap retr Side bilateral Equipment Used mirror for visual feedback Reps/Minutes 5x5 shld shrugs Sitting Exercise Name il and unil Reps/Minutes 5x5 Comments focus on breath and full relaxation between reps Shoulder ER Side left Reps/Minutes 10x Comments cues for initial scap setting, chin tuck, pain-free ROM trunk rotation Side bilateral Reps/Minutes 2x 5SH ea Comments with deep breathing, reach across opp knee Standing Exercises side raise plus ER Standing Exercise Name 90/90 arms wall alphabet Reps/Minutes 6 ball Body blade Standing Exercise Name tavares senior case manager fwd/bck, single senior case manager fwd/bck, side at 90/90 Equipment Used med body blade Reps/Minutes 30 sec ea tavares wall posture Standing Exercise Name shld ER, snow angle abd Resistance L more limited Reps/Minutes 5 min total Manual Therapy Treatment Soft Tissue Mobilization left lateral pec Mobilization Type Myofascial Release,Sustained Pressure Intensity/Depth Moderate UT Body Location L Mobilization Type Myofascial Release,Sustained Pressure Intensity/Depth Moderate Body Position Sidelying Self-Care/Home Management Treatment Education Patient Education Home Exercise Program,Pain Management,Posture,Safety PT-OP-R Modalities Start: 08/05/23 15:32 Freq: Status: Active Protocol: Document 09/24/23 13:03 NBM (Rec: 09/24/23 17:54 NBM [id number]) Hot Pack/Cold Pack Treatment ice pack Location left shoulder Patient Position Hooklying Patient Tolerance Good Comments 10 min PT-OP-T Assessment and Plan Start: 08/05/23 15:32 Freq: Status: Active Protocol: Document 10/15/23 08:11 SAK (Rec: 10/15/23 09:02 SAK [id number]) Physical Therapy Assessment Goals 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 09/18/23: able to practice modified Qi Gog, feels compensation 10/04/23: reports still feels she babies her shoulder, can't fully perform or teach LTG Duration 11/02/23 Three Impairment ROM limitations Impairment left shoulder elevation 45 deg AROM, 125 PROM. Unable to reach behind her back 09/03/23: 135, painful to reach behind her back, can reach to L5 09/18/23: Reaching behind to T12 when warmed up, flexion 145, abduction 147 Short Term Goal (STG) Improve AROM left shoulder elevation to at least 110 degrees with 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 09/18/23: goal met STG Duration goal met Halfway Goal (LTG) AROM elevation left shoulder to at least 155 deg, and internal rotation to L2 with 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 to allow her to return to usual activities 10/04/23: good goal progress, not fullky achieved, pain with IR but can reach L4, elevation to 155. LTG Duration 11/02/23 Two Impairment Activity tolerance Impairment QuickDash UE disability index score 81% Short Term Goal (STG) Decrease Quickdash score to no greater than 50% as measure of improved activity tolerance with left UE 09/03/23: dec to 41% 09/18/23:goal met STG Duration goal met Halfway Goal (LTG) Decrease Quickdash score to no greater than 20% as measure of improved activity tolerance with left UE 10/04/23: 33% good goal progress . Lifting only very minimally , light objects LTG Duration 11/02/23 One Impairment severe pain left shoulder with movement especially overhead and behind back Short Term Goal (STG) Decrease pain by at least 50% at rest 09/03/23: goal met STG Duration goal met Case Making Machine Operator Goal (LTG) Decrease pain by at least 75% with all usual activities including ability to reach overhead and behind her back for ADL's and usual household activities. 09/18/23: good goal progress 10/04/23: dec by 60% LTG Duration 11/02/23 Progress Towards Goals Progress Towards Goals Progressing Toward Goals Assessment Summary Assessment Treatment modified to dark room, gentle ex with cues for pain-free ROM, most difficulty with ER, IR but tolerating improving ROM. Physical Therapy Plan Frequency and Duration Frequency of Treatment 2x/Week Duration of treatment (weeks) 4 Plan of Care Start Date 10/04/23 Plan of Care End Date 11/02/23 Therapeutic Interventions Therapeutic Interventions Home Exercise Program,Joint Mobilizations,Manual Therapy, Patient/Caregiver Education, Self-Care/Home Management,Soft Tissue Mobilization,Taping, Therapeutic Activities, Therapeutic Exercises Modalities Cold Pack/Ice Massage,Electric Stimulation,Hot Packs, Infrared Therapy Next Visit Focus/Plan Next Note Type Treatment Note Next Visit Plan Final HEP review, issued updated written HEP .
--- NOTE | 2023-10-17 12:21 | PT.OTRE ---
Current Diagnoses Primary osteoarthritis, 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 (10/17/23) Strain of muscle(s) and tendon(s) of the rotator cuff of 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, initial encounter (10/17/23) Past Medical History (Last Updated 01/30/23 @ 13:53 by Loren Desouza DO) Cervical spine disease (~1994) Chickenpox (~1957) Chronic neck and back pain (~2003) Colon polyps (~2017) Encounter for subsequent annual wellness visit (AWV) in Medicare patient Fibroids (~1991) Foot pain (~2007) Hemorrhoids (~2017) Knee osteoarthritis Measles (~1958) Mumps (~1959) Optic disc cupping (~1992) Osteopenia (~2007) Osteoporosis Osteoporosis (~2015) Seasonal allergies Venous insufficiency (~2013) Surgical History (Last Reviewed 07/25/22 @ 15:46 by Juan Manuel Samano MD) Anesthesia History of appendectomy (~1963) History of section (~1980) History of section (~1988) History of hysterectomy (~1992) History of sinus surgery (~1990) History of surgical fusion joint (~2009) Visit Care Team Role Provider Type Loren Desouza DO Family Provider Physician Primary Care Provider Specialty: Family Practice Address: [address] [place] [address], [place] [address] Email: [email or web address] Anna Plasencia [email or web address] Attending Provider Advanced Gaming Commissioner Referring Provider Specialty: Medical Wound Care Address: [address] [place] [address] Email: [email or web address] Physical Therapy Re-Evaluation PT-OP-A Visit Information Start: 08/05/23 15:32 Freq: Status: Active Protocol: Document 10/17/23 08:14 LEVAR (Rec: 10/17/23 09:00 LEVAR [id number]) Out-Patient Physical Therapy Visit Information Visit Information Visit Type Treatment Note Visit Start Time 08:15 Visit Stop Time 08:58 Visit Number 16 Number of RESIDENTIAL CARPET INSTALLER Visits 0 Evaluation Information Evaluation Date 09/18/23 Precautions Precautions osteoporosis, history cervical disc fusion 2013. PT-OP-B Current Condition Start: 08/05/23 15:32 Freq: Status: Active Protocol: Document 10/17/23 08:14 SAK (Rec: 10/17/23 09:00 [facility] [id number]) Current Condition History of Current Condition Onset Date August 2022 Current Complaints left shoulder pain History of Current Condition doing side plank, felt and heard pop in left shoulder, very painful, pain gradually mostly went away. Increased again after moving some awkward furniture 1 /month ago . Also felt bee sting type sensation while gardening and note redness and swelling upper arm recently. Denies N/ T. Pt right handed. Has appt with Dr. Logan 08/24/23. Has been doing exercises at home; wall slide, pendulum; pendulum feels good, wall slide can get painful . Reports lifting arm overhead painful, especially about chest level, has to use right UE to assist left overhead, and reports severe pain when lowering back down. Reports very sensitive to the touch, difficulty reaching overhead and behind back painful, getting dressed painful. Has a set of pulleys but not sure if doing correctly. Went to massage therapist last week and pain increased after. Prior Treatments and Tests x-ray left shoulder 07/24/23: moderate GH and AC joint arthritis Future Testing and Treatments Planned Dr. Logan 08/24/23 PT-OP-C Subjective Start: 08/05/23 15:32 Freq: Status: Active Protocol: Document 10/17/23 08:14 [facility] (Rec: 10/17/23 09:00 [facility] [id number]) OP-PT Subjective Patient Comments Patient Comments Has had some increase in neckand shoulder pain and spasm on Sunday and yesterday along with HAN. PT-OP-F Manual Assessment Start: 08/05/23 15:32 Freq: Status: Active Protocol: Document 08/06/23 09:33 SAK (Rec: 08/07/23 08:46 [facility] [id number]) Manual Assessments Joint Mobility Assessment Joint Mobility Assessment difficult to assess due to heavy guarding PT-OP-H Neuro Start: 08/05/23 15:32 Freq: Status: Active Protocol: Document 08/06/23 09:33 SAK (Rec: 08/07/23 08:46 [facility] [id number]) Sensation Evaluation Gross Sensation Gross Sensation WNL PT-OP-J Posture/Palpation/Skin Start: 08/05/23 15:32 Freq: Status: Active Protocol: Document 08/06/23 09:33 SAK (Rec: 08/07/23 08:46 SAK [id number]) Posture Evaluation Position Sitting Head/C-Spine Posture C-Spine Flattened Shoulder Posture (L) Rounded,(R) Rounded PT-OP-K Range of Motion Start: 08/05/23 15:32 Freq: Status: Active Protocol: Document 08/06/23 09:33 SAK (Rec: 08/07/23 08:46 SAK [id number]) Shoulder Goniometric Range of Motion Shoulder Measured in Degrees Left Active Shoulder ROM WFL No Flexion 40 Extension 10 Abduction 35 External Rotation at 0 degrees Abduction 45 Internal Rotation Behind Back (text) L4 Right Shoulder ROM WFL Yes Shoulder ROM Limitations Shoulder ROM Limitations Pain Elbow/Forearm Range of Motion Elbow/Forearm Measured in Degrees tavares Elbow/Forearm ROM WFL Yes PT-OP-L Special Tests Start: 08/05/23 15:32 Freq: Status: Active Protocol: Document 08/06/23 09:33 SAK (Rec: 08/07/23 08:46 SAK [id number]) Special Tests Shoulder Special Tests Speed's Biceps Test Results - Passive ER Rotator Cuff Test Results +L Drop Arm Rotator Cuff Test Results +L Belly Press Test Results + L PT-OP-M Strength Start: 08/05/23 15:32 Freq: Status: Active Protocol: Document 08/06/23 09:33 SAK (Rec: 08/07/23 08:46 SAK [id number]) Shoulder Strength Shoulder Manual Muscle Testing Left Comments not tested due to severity of pain, less than anti-gravity strength Right Flexion 5 Normal Extension 5 Normal Abduction (C5) 5 Normal Adduction 5 Normal External Rotation 4 Good Internal Rotation 5 Normal PT-OP-Q Treatments Start: 08/05/23 15:32 Freq: Status: Active Protocol: Document 10/17/23 08:14 SAK (Rec: 10/17/23 09:00 SAK [id number]) Therapeutic Exercises Supine Exercises supine deep breathing Reps/Minutes 3 min Comments breath into the tight/painful area lat stretch Supine Exercise Name thumb up position Reps/Minutes 2x30 pec stretch Supine Exercise Name rodney, min Side bilateral Reps/Minutes 2x30 Comments left UE needed pillow support for min, cues for gentle Standing Exercises shoulder jossy Comments supine verbal education for when modification needed Manual Therapy Treatment Soft Tissue Mobilization suboccipital release Intensity/Depth mod Body Position Supine strain/counterstrain Body Location left shld, c/s Mobilization Type Other Body Position Supine Comments positional left lateral pec Mobilization Type Myofascial Release,Sustained Pressure Intensity/Depth Moderate UT Body Location L Mobilization Type Myofascial Release,Sustained Pressure Intensity/Depth Moderate Body Position Sidelying Self-Care/Home Management Treatment Education Patient Education Home Exercise Program,Pain Management,Posture Other Education strain/counterstrain theory and treatment for c/s, scap PT-OP-R Modalities Start: 08/05/23 15:32 Freq: Status: Active Protocol: Document 09/24/23 13:03 NBM (Rec: 09/24/23 17:54 NBM [id number]) Hot Pack/Cold Pack Treatment ice pack Location left shoulder Patient Position Hooklying Patient Tolerance Good Comments 10 min PT-OP-T Assessment and Plan Start: 08/05/23 15:32 Freq: Status: Active Protocol: Document 10/17/23 08:14 SAK (Rec: 10/17/23 09:00 SAK [id number]) Physical Therapy Assessment Goals 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 09/18/23: able to practice modified Qi Gog, feels compensation 10/04/23: reports still feels she babies her shoulder, can't fully perform or teach 10/17/23: can now perform modified Qi Gong. Pain much better but can have brief episodes of 4/10 level pain LTG Duration 11/15/23 Three Impairment ROM limitations Impairment left shoulder elevation 45 deg AROM, 125 PROM. Unable to reach behind her back 09/03/23: 135, painful to reach behind her back, can reach to L5 09/18/23: Reaching behind to T12 when warmed up, flexion 145, abduction 147 Short Term Goal (STG) Improve AROM left shoulder elevation to at least 110 degrees with 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 09/18/23: goal met STG Duration goal met Intermediate Goal (LTG) AROM elevation left shoulder to at least 155 deg, and internal rotation to L2 with 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 to allow her to return to usual activities 10/04/23: good goal progress, not fullky achieved, pain with IR but can reach L4, elevation to 155. 10/17/23: goal almost met LTG Duration 11/15/23 Two Impairment Activity tolerance Impairment QuickDash UE disability index score 81% Short Term Goal (STG) Decrease Quickdash score to no greater than 50% as measure of improved activity tolerance with left UE 09/03/23: dec to 41% 09/18/23:goal met STG Duration goal met Intermediate Goal (LTG) Decrease Quickdash score to no greater than 20% as measure of improved activity tolerance with left UE 10/04/23: 33% good goal progress . Lifting only very minimally , light objects 10/17/23: no further decrease LTG Duration 11/15/23 One Impairment severe pain left shoulder with movement especially overhead and behind back Short Term Goal (STG) Decrease pain by at least 50% at rest 09/03/23: goal met STG Duration goal met Conveyor Belt Repairer Goal (LTG) Decrease pain by at least 75% with all usual activities including ability to reach overhead and behind her back for ADL's and usual household activities. 09/18/23: good goal progress 10/04/23: dec by 60% 10/17/23 LTG Duration 11/15/23 Assessment Summary Assessment Patient making good progress toward goals. Had considered discharge but due to not fully reaching PT goals agreed to 2 follow-up appontments in 3-4 weeks for problem solving, advancement and modification of HEP as needed. She is highly motivated and compliant to her HEP and self-care. Shoulder function impacted by prior cervical surgery. Physical Therapy Plan Frequency and Duration Frequency of Treatment 2 visits Duration of treatment (weeks) 4 Plan of Care Start Date 10/17/23 Plan of Care End Date 11/15/23 Therapeutic Interventions Therapeutic Interventions Home Exercise Program,Joint Mobilizations,Manual Therapy, Patient/Caregiver Education, Self-Care/Home Management,Soft Tissue Mobilization,Taping, Therapeutic Activities, Therapeutic Exercises Modalities Cold Pack/Ice Massage,Electric Stimulation,Hot Packs, Infrared Therapy,Ultrasound Discharge Physical Therapy Discharge Reasons Goals Met Next Visit Focus/Plan Next Note Type Treatment Note Next Visit Plan Decision to do 1-2 f/u appointments in 3-4 weeks for further progression of HEP,
--- NOTE | 2023-10-17 12:21 | PT.OPPOC ---
Physical, Occupational & Speech Therapy At [facility] Current Diagnoses Primary osteoarthritis, 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 (10/17/23) Strain of muscle(s) and tendon(s) of the rotator cuff of 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, initial encounter (10/17/23) Visit Care Team Role Provider Type Loren Desouza DO Family Provider Physician Primary Care Provider Specialty: Family Practice Address: [address] [place] [address], [address], [address] Email: [email or web address] Attending Provider Advanced Vehicle Body Maker Referring Provider Specialty: Medical Wound Care Address: [address] [place] [address], [id number] Email: [email or web address] Plan Of Care PT-OP-T Assessment and Plan Start: 08/05/23 15:32 Freq: Status: Active Protocol: Document 10/17/23 08:14 LEVAR (Rec: 10/17/23 09:00 [facility] [id number]) Physical Therapy Assessment Goals 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 09/18/23: able to practice modified Qi Gog, feels compensation 10/04/23: reports still feels she babies her shoulder, can't fully perform or teach 10/17/23: can now perform modified Qi Gong. Pain much better but can have brief episodes of 4/10 level pain LTG Duration 11/15/23 Three Impairment ROM limitations Impairment left shoulder elevation 45 deg AROM, 125 PROM. Unable to reach behind her back 09/03/23: 135, painful to reach behind her back, can reach to L5 09/18/23: Reaching behind to T12 when warmed up, flexion 145, abduction 147 Short Term Goal (STG) Improve AROM left shoulder elevation to at least 110 degrees with 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 09/18/23: goal met STG Duration goal met Gunstock Spray Unit Adjuster Goal (LTG) AROM elevation left shoulder to at least 155 deg, and internal rotation to L2 with 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 to allow her to return to usual activities 10/04/23: good goal progress, not fullky achieved, pain with IR but can reach L4, elevation to 155. 10/17/23: goal almost met LTG Duration 11/15/23 Two Impairment Activity tolerance Impairment QuickDash UE disability index score 81% Short Term Goal (STG) Decrease Quickdash score to no greater than 50% as measure of improved activity tolerance with left UE 09/03/23: dec to 41% 09/18/23:goal met STG Duration goal met Senior Care Goal (LTG) Decrease Quickdash score to no greater than 20% as measure of improved activity tolerance with left UE 10/04/23: 33% good goal progress . Lifting only very minimally , light objects 10/17/23: no further decrease LTG Duration 11/15/23 One Impairment severe pain left shoulder with movement especially overhead and behind back Short Term Goal (STG) Decrease pain by at least 50% at rest 09/03/23: goal met STG Duration goal met Gunstock Spray Unit Adjuster Goal (LTG) Decrease pain by at least 75% with all usual activities including ability to reach overhead and behind her back for ADL's and usual household activities. 09/18/23: good goal progress 10/04/23: dec by 60% 10/17/23 LTG Duration 11/15/23 Assessment Summary Assessment Patient making good progress toward goals. Had considered discharge but due to not fully reaching PT goals agreed to 2 follow-up appontments in 3-4 weeks for problem solving, advancement and modification of HEP as needed. She is highly motivated and compliant to her HEP and self-care. Shoulder function impacted by prior cervical surgery. Physical Therapy Plan Frequency and Duration Frequency of Treatment 2 visits Duration of treatment (weeks) 4 Plan of Care Start Date 10/17/23 Plan of Care End Date 11/15/23 Therapeutic Interventions Therapeutic Interventions Home Exercise Program,Joint Mobilizations,Manual Therapy, Patient/Caregiver Education, Self-Care/Home Management,Soft Tissue Mobilization,Taping, Therapeutic Activities, Therapeutic Exercises Modalities Cold Pack/Ice Massage,Electric Stimulation,Hot Packs, Infrared Therapy,Ultrasound Discharge Physical Therapy Discharge Reasons Goals Met Next Visit Focus/Plan Next Note Type Treatment Note Next Visit Plan Decision to do 1-2 f/u appointments in 3-4 weeks for further progression of HEP, Plan of Care Dates Plan of Care Start Date 10/17/23 Plan of Care End Date 11/15/23 Electronically Signed by: Ania Palacio, PT 10/17/23 8720 If you are in agreement with this Plan of Care, please return a signed and dated copy. I have reviewed this Plan of Care and certify that the skilled therapy services above are required to meet the patient?s needs. Physician Signature Date Printed Name and Credentials Clinical Instructor Signature Printed Name and Credentials
--- NOTE | 2023-11-13 16:39 | PT.OTRE ---
Current Diagnoses Primary osteoarthritis, 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 (11/13/23) Strain of muscle(s) and tendon(s) of the rotator cuff of 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, initial encounter (11/13/23) Past Medical History (Last Updated 01/30/23 @ 13:53 by Loren Desouza DO) Cervical spine disease (~1994) Chickenpox (~1957) Chronic neck and back pain (~2003) Colon polyps (~2017) Encounter for subsequent annual wellness visit (AWV) in Medicare patient Fibroids (~1991) Foot pain (~2007) Hemorrhoids (~2017) Knee osteoarthritis Measles (~1958) Mumps (~1959) Optic disc cupping (~1992) Osteopenia (~2007) Osteoporosis Osteoporosis (~2015) Seasonal allergies Venous insufficiency (~2013) Surgical History (Last Reviewed 07/25/22 @ 15:46 by Juan Manuel Samano MD) Anesthesia History of appendectomy (~1963) History of section (~1980) History of section (~1988) History of hysterectomy (~1992) History of sinus surgery (~1990) History of surgical fusion joint (~2009) Visit Care Team Role Provider Type Loren Desouza DO Family Provider Physician Primary Care Provider Specialty: Family Practice Address: [address] [place] [address], [place] [address] Email: [email or web address] [email or web address] Attending Provider Advanced Appraiser Timber Referring Provider Specialty: Medical Wound Care Address: [address] [place] [address] Email: [email or web address] Physical Therapy Re-Evaluation PT-OP-A Visit Information Start: 08/05/23 15:32 Freq: Status: Active Protocol: Document 11/13/23 08:20 LEVAR (Rec: 11/13/23 09:01 SAK [id number]) Out-Patient Physical Therapy Visit Information Visit Information Visit Type Treatment Note Visit Start Time 08:21 Visit Stop Time 09:00 Visit Number 17 Evaluation Information Evaluation Date 09/18/23 Precautions Precautions osteoporosis, history cervical disc fusion 2013. PT-OP-B Current Condition Start: 08/05/23 15:32 Freq: Status: Active Protocol: Document 11/13/23 08:20 [facility] (Rec: 11/13/23 09:01 [facility] [id number]) Current Condition History of Current Condition Onset Date August 2022 Current Complaints left shoulder pain History of Current Condition doing side plank, felt and heard pop in left shoulder, very painful, pain gradually mostly went away. Increased again after moving some awkward furniture 1 /month ago . Also felt bee sting type sensation while gardening and note redness and swelling upper arm recently. Denies N/ T. Pt right handed. Has appt with Dr. Logan 08/24/23. Has been doing exercises at home; wall slide, pendulum; pendulum feels good, wall slide can get painful . Reports lifting arm overhead painful, especially about chest level, has to use right UE to assist left overhead, and reports severe pain when lowering back down. Reports very sensitive to the touch, difficulty reaching overhead and behind back painful, getting dressed painful. Has a set of pulleys but not sure if doing correctly. Went to massage therapist last week and pain increased after. Prior Treatments and Tests x-ray left shoulder 07/24/23: moderate GH and AC joint arthritis Future Testing and Treatments Planned Dr. Logan 08/24/23 PT-OP-C Subjective Start: 08/05/23 15:32 Freq: Status: Active Protocol: Document 11/13/23 08:20 [facility] (Rec: 11/13/23 09:01 [facility] [id number]) OP-PT Subjective Patient Comments Patient Comments Did some easy gardening 2 days ago, didn't notice much pain until then, then driving in car to [place] yesterday noted increased pain. Feels like the exercises are good abut has some questions PT-OP-F Manual Assessment Start: 08/05/23 15:32 Freq: Status: Active Protocol: Document 08/06/23 09:33 [facility]AK (Rec: 08/07/23 08:46 [facility] [id number]) Manual Assessments Joint Mobility Assessment Joint Mobility Assessment difficult to assess due to heavy guarding PT-OP-H Neuro Start: 08/05/23 15:32 Freq: Status: Active Protocol: Document 08/06/23 09:33 [facility]AK (Rec: 08/07/23 08:46 [facility] [id number]) Sensation Evaluation Gross Sensation Gross Sensation WNL PT-OP-J Posture/Palpation/Skin Start: 08/05/23 15:32 Freq: Status: Active Protocol: Document 08/06/23 09:33 [facility]AK (Rec: 08/07/23 08:46 [facility] [id number]) Posture Evaluation Position Sitting Head/C-Spine Posture C-Spine Flattened Shoulder Posture (L) Rounded,(R) Rounded PT-OP-K Range of Motion Start: 08/05/23 15:32 Freq: Status: Active Protocol: Document 08/06/23 09:33 [facility] (Rec: 08/07/23 08:46 [facility] [id number]) Shoulder Goniometric Range of Motion Shoulder Measured in Degrees Left Active Shoulder ROM WFL No Flexion 40 Extension 10 Abduction 35 External Rotation at 0 degrees Abduction 45 Internal Rotation Behind Back (text) L4 Right Shoulder ROM WFL Yes Shoulder ROM Limitations Shoulder ROM Limitations Pain Elbow/Forearm Range of Motion Elbow/Forearm Measured in Degrees tavares Elbow/Forearm ROM WFL Yes PT-OP-L Special Tests Start: 08/05/23 15:32 Freq: Status: Active Protocol: Document 08/06/23 09:33 [facility]AK (Rec: 08/07/23 08:46 [facility] [id number]) Special Tests Shoulder Special Tests Speed's Biceps Test Results - Passive ER Rotator Cuff Test Results +L Drop Arm Rotator Cuff Test Results +L Belly Press Test Results + L PT-OP-M Strength Start: 08/05/23 15:32 Freq: Status: Active Protocol: Document 08/06/23 09:33 [facility] (Rec: 08/07/23 08:46 [facility] [id number]) Shoulder Strength Shoulder Manual Muscle Testing Left Comments not tested due to severity of pain, less than anti-gravity strength Right Flexion 5 Normal Extension 5 Normal Abduction (C5) 5 Normal Adduction 5 Normal External Rotation 4 Good Internal Rotation 5 Normal PT-OP-Q Treatments Start: 08/05/23 15:32 Freq: Status: Active Protocol: Document 11/13/23 08:20 [facility] (Rec: 11/13/23 09:01 [facility] [id number]) Therapeutic Exercises Sidelying Exercises open book Sidelying Exercise Name reviewed HEP Side bilateral Resistance HABD and partial range snow angle Reps/Minutes 5x each side Comments cues for segmental movt, pain- free ROM but not touch table ER Sidelying Exercise Name added to HEP Side left Resistance AROM Equipment Used towel roll under arm Reps/Minutes 8 reps shoulder abd Sidelying Exercise Name next session review Sitting Exercises pulleys Sitting Exercise Name flex, scap, abd- HEP reviewed Side left Equipment Used mirror Reps/Minutes 10x each Comments Cued elbow straight, level shld, cues for breathing, dec UT activation shld shrugs Sitting Exercise Name il and unil Reps/Minutes 5x5 Comments focus on breath and full relaxation between reps Shoulder ER Side left Reps/Minutes 5x Comments elbow supported on table Standing Exercises side raise plus ER Standing Exercise Name 90/90 arms Equipment Used wall Reps/Minutes 10x IR stretch Standing Exercise Name reviewed options wall posture Standing Exercise Name shld ER, snow angle abd, shoulder IR/ER Resistance L more limited Reps/Minutes 5 min total wall pushups Standing Exercise Name HEP - modified to // bars to simulate home Side bilateral Resistance AROM Reps/Minutes x10 reps Comments cues c-sp align, no LB arch- muscle tiring/pnfree Self-Care/Home Management Treatment Education Patient Education Home Exercise Program Other Education reviewed all HEP handouts, instructed patient to organize by position, instructed choosing best, more challenging ex for each shoulder movement with guidance today. Answered questions regarding technique on many exercises today. PT-OP-R Modalities Start: 08/05/23 15:32 Freq: Status: Active Protocol: Document 09/24/23 13:03 [facility] (Rec: 09/24/23 17:54 [facility] [id number]) Hot Pack/Cold Pack Treatment ice pack Location left shoulder Patient Position Hooklying Patient Tolerance Good Comments 10 min PT-OP-T Assessment and Plan Start: 08/05/23 15:32 Freq: Status: Active Protocol: Document 11/13/23 08:20 [facility] (Rec: 11/13/23 14:30 [facility] [id number]) Physical Therapy Assessment Goals weakness Short Term Goal (STG) patient to be independent with HEP for purposes of strengthening left shoulder STG Duration goal met Mcfp Goal (LTG) Patient to demonstrate improvement in left shoulder strength to at least 4+/5 all muscle groups 11/13/23: goal progress LTG Duration 11/24/23 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 09/18/23: able to practice modified Qi Gog, feels compensation 10/04/23: reports still feels she babies her shoulder, can't fully perform or teach 10/17/23: can now perform modified Qi Gong. Pain much better but can have brief episodes of 4/10 level pain 11/13/23: less episodes of exacerbation, pain variable from 1-4/10 but not constant. 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 Unable to reach behind her back 09/03/23: 135, painful to reach behind her back, can reach to L5 09/18/23: Reaching behind to T12 when warmed up, flexion 145, abduction 147 Short Term Goal (STG) Improve AROM left shoulder elevation to at least 110 degrees with 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 09/18/23: goal met STG Duration goal met Mcfp Goal (LTG) AROM elevation left shoulder to at least 155 deg, and internal rotation to L2 with 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 to allow her to return to usual activities 10/04/23: good goal progress, not fully achieved, pain with IR but can reach L4, elevation to 155. 10/17/23: goal almost met 11/13/23: goal mostly met; slow , careful movements. LTG Duration 11/24/23 Two Impairment Activity tolerance Impairment QuickDash UE disability index score 81% Short Term Goal (STG) Decrease Quickdash score to no greater than 50% as measure of improved activity tolerance with left UE 09/03/23: dec to 41% 09/18/23:goal met STG Duration goal met Mcfp Goal (LTG) Decrease Quickdash score to no greater than 20% as measure of improved activity tolerance with left UE 10/04/23: 33% good goal progress . Lifting only very minimally , light objects 10/17/23: no further decrease 11/13/23: not reassessed this date, will assess at last appt . LTG Duration 11/24/23 One Impairment severe pain left shoulder with movement especially overhead and behind back Short Term Goal (STG) Decrease pain by at least 50% at rest 09/03/23: goal met STG Duration goal met Mcfp Goal (LTG) Decrease pain by at least 75% with all usual activities including ability to reach overhead and behind her back for ADL's and usual household activities. 09/18/23: good goal progress 10/04/23: dec by 60% 11/13/23: decreased by 66% LTG Duration 11/24/23 Progress Towards Goals Progress Towards Goals Progressing Toward Goals Assessment Summary Assessment Patient has been making good progress toward PT goals though still some persistent pain and limitations in ROM. Her functional use of her left UE has improved significantly and she is highly compliant to her HEP. We reviewed her HEP and modifications were made today. We have 1 further PT visit scheduled for final review of updated HEP and problem solving any further issues. Then she will be discharged to self management with HEP. Physical Therapy Plan Frequency and Duration Frequency of Treatment 1 visits Duration of treatment (weeks) 2 Plan of Care Start Date 11/13/23 Plan of Care End Date 11/24/23 Therapeutic Interventions Therapeutic Interventions Home Exercise Program,Joint Mobilizations,Manual Therapy, Patient/Caregiver Education, Self-Care/Home Management,Soft Tissue Mobilization,Taping, Therapeutic Activities, Therapeutic Exercises Modalities Cold Pack/Ice Massage,Electric Stimulation,Hot Packs, Infrared Therapy,Ultrasound Next Visit Focus/Plan Next Note Type Treatment Note Next Visit Plan 1 further PT appointment to assure safety and independence with HEP and demonstrate good understanding of safe progression of exercises as tolerated.
--- NOTE | 2023-11-13 16:39 | PT.OPPOC ---
Physical, Occupational & Speech Therapy At [facility] Current Diagnoses Primary osteoarthritis, 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 (11/13/23) Strain of muscle(s) and tendon(s) of the rotator cuff of 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, initial encounter (11/13/23) Visit Care Team Role Provider Type oLren Desouza DO Family Provider Physician Primary Care Provider Specialty: Family Practice Address: [address] [place] [address], [address], [place], [address] Email: [email or web address] Anna Plasencia [email or web address]-C Attending Provider Advanced Cage Manager Referring Provider Specialty: Medical Wound Care Address: [address] [place] [address], [id number] Email: [email or web address] Plan Of Care PT-OP-T Assessment and Plan Start: 08/05/23 15:32 Freq: Status: Active Protocol: Document 11/13/23 08:20 [facility] (Rec: 11/13/23 14:30 [facility] [id number]) Physical Therapy Assessment Goals weakness Short Term Goal (STG) patient to be independent with HEP for purposes of strengthening left shoulder STG Duration goal met [facility]cf Goal (LTG) Patient to demonstrate improvement in left shoulder strength to at least 4+/5 all muscle groups 11/13/23: goal progress LTG Duration 11/24/23 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 09/18/23: able to practice modified Qi Gog, feels compensation 10/04/23: reports still feels she babies her shoulder, can't fully perform or teach 10/17/23: can now perform modified Qi Gong. Pain much better but can have brief episodes of 4/10 level pain 11/13/23: less episodes of exacerbation, pain variable from 1-4/10 but not constant. 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 Unable to reach behind her back 09/03/23: 135, painful to reach behind her back, can reach to L5 09/18/23: Reaching behind to T12 when warmed up, flexion 145, abduction 147 Short Term Goal (STG) Improve AROM left shoulder elevation to at least 110 degrees with 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 09/18/23: goal met STG Duration goal met [facility]cf Goal (LTG) AROM elevation left shoulder to at least 155 deg, and internal rotation to L2 with 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 to allow her to return to usual activities 10/04/23: good goal progress, not fully achieved, pain with IR but can reach L4, elevation to 155. 10/17/23: goal almost met 11/13/23: goal mostly met; slow , careful movements. LTG Duration 11/24/23 Two Impairment Activity tolerance Impairment QuickDash UE disability index score 81% Short Term Goal (STG) Decrease Quickdash score to no greater than 50% as measure of improved activity tolerance with left UE 09/03/23: dec to 41% 09/18/23:goal met STG Duration goal met Relationship Mgr Goal (LTG) Decrease Quickdash score to no greater than 20% as measure of improved activity tolerance with left UE 10/04/23: 33% good goal progress . Lifting only very minimally , light objects 10/17/23: no further decrease 11/13/23: not reassessed this date, will assess at last appt . LTG Duration 11/24/23 One Impairment severe pain left shoulder with movement especially overhead and behind back Short Term Goal (STG) Decrease pain by at least 50% at rest 09/03/23: goal met STG Duration goal met Chcf Goal (LTG) Decrease pain by at least 75% with all usual activities including ability to reach overhead and behind her back for ADL's and usual household activities. 09/18/23: good goal progress 10/04/23: dec by 60% 11/13/23: decreased by 66% LTG Duration 11/24/23 Progress Towards Goals Progress Towards Goals Progressing Toward Goals Assessment Summary Assessment Patient has been making good progress toward PT goals though still some persistent pain and limitations in ROM. Her functional use of her left UE has improved significantly and she is highly compliant to her HEP. We reviewed her HEP and modifications were made today. We have 1 further PT visit scheduled for final review of updated HEP and problem solving any further issues. Then she will be discharged to self management with HEP. Physical Therapy Plan Frequency and Duration Frequency of Treatment 1 visits Duration of treatment (weeks) 2 Plan of Care Start Date 11/13/23 Plan of Care End Date 11/24/23 Therapeutic Interventions Therapeutic Interventions Home Exercise Program,Joint Mobilizations,Manual Therapy, Patient/Caregiver Education, Self-Care/Home Management,Soft Tissue Mobilization,Taping, Therapeutic Activities, Therapeutic Exercises Modalities Cold Pack/Ice Massage,Electric Stimulation,Hot Packs, Infrared Therapy,Ultrasound Next Visit Focus/Plan Next Note Type Treatment Note Next Visit Plan 1 further PT appointment to assure safety and independence with HEP and demonstrate good understanding of safe progression of exercises as tolerated. Plan of Care Dates Plan of Care Start Date 11/13/23 Plan of Care End Date 11/24/23 Electronically Signed by: Ania Palacio, PT 11/13/23 [id number] If you are in agreement with this Plan of Care, please return a signed and dated copy. I have reviewed this Plan of Care and certify that the skilled therapy services above are required to meet the patient?s needs. Physician Signature Date Printed Name and Credentials Clinical Instructor Signature Printed Name and Credentials
--- NOTE | 2023-11-21 09:02 | PT.OTN ---
Current Diagnoses Primary osteoarthritis, 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 (11/21/23) Strain of muscle(s) and tendon(s) of the rotator cuff of 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, initial encounter (11/21/23) Physical Therapy Treatment Note PT-OP-A Visit Information Start: 08/05/23 15:32 Freq: Status: Active Protocol: Document 11/21/23 08:06 SAK (Rec: 11/21/23 09:02 [facility] [id number]) Out-Patient Physical Therapy Visit Information Visit Information Visit Type Treatment Note Visit Start Time 08:14 Visit Stop Time 08:54 Visit Number 18 Evaluation Information Evaluation Date 09/18/23 Precautions Precautions osteoporosis, history cervical disc fusion 2013. PT-OP-B Current Condition Start: 08/05/23 15:32 Freq: Status: Active Protocol: Document 11/21/23 08:06 SAK (Rec: 11/21/23 09:02 SAK [id number]) Current Condition History of Current Condition Onset Date August 2022 Current Complaints left shoulder pain History of Current Condition doing side plank, felt and heard pop in left shoulder, very painful, pain gradually mostly went away. Increased again after moving some awkward furniture 1 /month ago . Also felt bee sting type sensation while gardening and note redness and swelling upper arm recently. Denies N/ T. Pt right handed. Has appt with Dr. Logan 08/24/23. Has been doing exercises at home; wall slide, pendulum; pendulum feels good, wall slide can get painful . Reports lifting arm overhead painful, especially about chest level, has to use right UE to assist left overhead, and reports severe pain when lowering back down. Reports very sensitive to the touch, difficulty reaching overhead and behind back painful, getting dressed painful. Has a set of pulleys but not sure if doing correctly. Went to massage therapist last week and pain increased after. Prior Treatments and Tests x-ray left shoulder 07/24/23: moderate GH and AC joint arthritis Future Testing and Treatments Planned Dr. 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 PT-OP-F Manual Assessment Start: 08/05/23 15:32 Freq: Status: Active Protocol: Document 08/06/23 09:33 SAK (Rec: 08/07/23 08:46 SAK [id number]) Manual Assessments Joint Mobility Assessment Joint Mobility Assessment difficult to assess due to heavy guarding PT-OP-H Neuro Start: 08/05/23 15:32 Freq: Status: Active Protocol: Document 08/06/23 09:33 SAK (Rec: 08/07/23 08:46 SAK [id number]) Sensation Evaluation Gross Sensation Gross Sensation WNL PT-OP-J Posture/Palpation/Skin Start: 08/05/23 15:32 Freq: Status: Active Protocol: Document 08/06/23 09:33 SAK (Rec: 08/07/23 08:46 SAK [id number]) Posture Evaluation Position Sitting Head/C-Spine Posture C-Spine Flattened Shoulder Posture (L) Rounded,(R) Rounded PT-OP-K Range of Motion Start: 08/05/23 15:32 Freq: Status: Active Protocol: Document 08/06/23 09:33 SAK (Rec: 08/07/23 08:46 [facility] [id number]) Shoulder Goniometric Range of Motion Shoulder Left Active Shoulder ROM WFL No Flexion 40 Extension 10 Abduction 35 External Rotation at 0 degrees Abduction 45 Internal Rotation Behind Back (text) L4 Right Shoulder ROM WFL Yes Shoulder ROM Limitations Shoulder ROM Limitations Pain Elbow/Forearm Range of Motion Elbow/Forearm tavares Elbow/Forearm ROM WFL Yes PT-OP-L Special Tests Start: 08/05/23 15:32 Freq: Status: Active Protocol: Document 08/06/23 09:33 SAK (Rec: 08/07/23 08:46 [facility] [id number]) Special Tests Shoulder Special Tests Speed's Biceps Test Results - Passive ER Rotator Cuff Test Results +L Drop Arm Rotator Cuff Test Results +L Belly Press Test Results + L PT-OP-M Strength Start: 08/05/23 15:32 Freq: Status: Active Protocol: Document 08/06/23 09:33 SAK (Rec: 08/07/23 08:46 SAK [id number]) Shoulder Strength Shoulder Manual Muscle Testing Left Comments not tested due to severity of pain, less than anti-gravity strength Right Flexion 5 Normal Extension 5 Normal Abduction (C5) 5 Normal Adduction 5 Normal External Rotation 4 Good Internal Rotation 5 Normal PT-OP-Q Treatments Start: 08/05/23 15:32 Freq: Status: Active Protocol: Document 11/21/23 08:06 [facility] (Rec: 11/21/23 09:02 SAK [id number]) Therapeutic Exercises Standing Exercises upright row Reps/Minutes 10x Comments wand bent over row, I, T, Y Reps/Minutes 10x ea Comments cues for long spine side raise plus ER Standing Exercise Name 90/90 arms Equipment Used wall Reps/Minutes 10x triceps Standing Exercise Name review biceps Resistance L4 TB Reps/Minutes 10 wall posture Standing Exercise Name shld ER, snow angle abd, shoulder IR/ER Resistance L more limited Reps/Minutes 5 min total Self-Care/Home Management Treatment Education Patient Education Home Exercise Program Other Education added bent over row, I, T, Y with ex handouts, further review of HEP progression PT-OP-R Modalities Start: 08/05/23 15:32 Freq: Status: Active Protocol: Document 09/24/23 13:03 NB (Rec: 09/24/23 17:54 NB [id number]) Hot Pack/Cold Pack Treatment ice pack Location left shoulder Patient Position Hooklying Patient Tolerance Good Comments 10 min PT-OP-T Assessment and Plan Start: 08/05/23 15:32 Freq: Status: Active Protocol: Document 11/21/23 08:06 [facility] (Rec: 11/21/23 09:02 [facility] [id number]) Physical Therapy Assessment Goals weakness Short Term Goal (STG) patient to be independent with HEP for purposes of strengthening left shoulder STG Duration goal met Superintendent Distribution Goal (LTG) Patient to demonstrate improvement in left shoulder strength to at least 4+/5 all muscle groups 11/13/23: goal progress LTG Duration 11/24/23 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 09/18/23: able to practice modified Qi Gog, feels compensation 10/04/23: reports still feels she babies her shoulder, can't fully perform or teach 10/17/23: can now perform modified Qi Gong. Pain much better but can have brief episodes of 4/10 level pain 11/13/23: less episodes of exacerbation, pain variable from 1-4/10 but not constant. 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 Unable to reach behind her back 09/03/23: 135, painful to reach behind her back, can reach to L5 09/18/23: Reaching behind to T12 when warmed up, flexion 145, abduction 147 Short Term Goal (STG) Improve AROM left shoulder elevation to at least 110 degrees with 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 09/18/23: goal met STG Duration goal met Fpc Goal (LTG) AROM elevation left shoulder to at least 155 deg, and internal rotation to L2 with 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 to allow her to return to usual activities 10/04/23: good goal progress, not fully achieved, pain with IR but can reach L4, elevation to 155. 10/17/23: goal almost met 11/13/23: goal mostly met; slow , careful movements. LTG Duration 11/24/23 Two Impairment Activity tolerance Impairment QuickDash UE disability index score 81% Short Term Goal (STG) Decrease Quickdash score to no greater than 50% as measure of improved activity tolerance with left UE 09/03/23: dec to 41% 09/18/23:goal met STG Duration goal met Fpc Goal (LTG) Decrease Quickdash score to no greater than 20% as measure of improved activity tolerance with left UE 10/04/23: 33% good goal progress . Lifting only very minimally , light objects 10/17/23: no further decrease 11/13/23: not reassessed this date, will assess at last appt . LTG Duration 11/24/23 One Impairment severe pain left shoulder with movement especially overhead and behind back Short Term Goal (STG) Decrease pain by at least 50% at rest 09/03/23: goal met STG Duration goal met Fpc Goal (LTG) Decrease pain by at least 75% with all usual activities including ability to reach overhead and behind her back for ADL's and usual household activities. 09/18/23: good goal progress 10/04/23: dec by 60% 11/13/23: decreased by 66% LTG Duration 11/24/23 Progress Towards Goals Progress Towards Goals Goals Met Assessment Summary Assessment Goals mostly met. Added bent over rows and I, T, Y with guidance for exercise progresion. Patient demonstrated good understanding of all, is able to modify activities as needed . Physical Therapy Plan Discharge Physical Therapy Discharge Comments goals mostly met
== END 2023-11-23 14:43 | disposition home or self-care (01) ==
LOC: PHYS 08:15
PROVIDERS: Family Provider Family Medicine; PCP Family Medicine; Referring Provider Physician Assistant; Visit Provider Physician Assistant
DX: S46.012A Strain of muscle(s) and tendon(s) of the rotator cuff of 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, initial encounter (principal); M19.012 Primary osteoarthritis, 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
CPT/HCPCS: 97110; 97140; 97162; 97535

== ENCOUNTER → 2024-02-01 12:56 | Outpatient (CLI) | payer MEDICARE, OTHER, SELFPAY ==
[2024-02-01 15:21] LABS: Add Manual Diff / Slide Review NO; Basophils Absolute Auto 0 /uL (0-100); Basophils Percent Auto 0.7 % (0-2); Eosinophils Absolute Auto 200 /uL (0-450); Eosinophils Percent Auto 5.3 % (2-4); Hematocrit 36.1 % (36-46); Hemoglobin 12.4 g/dL (12.0-16.0); Lymphocytes Absolute Auto 1400 /uL (1100-4500); Lymphocytes Percent Auto 29.3 % (25-40); Mean Corpuscular HGB Conc 34.3 % (30-36); Mean Corpuscular Hemoglobin 32.2 PG (26-34); Mean Corpuscular Volume 93.6 fL (80-100); Monocytes Absolute Auto 500 /uL (0-900); Monocytes Percent Auto 10.8 % (3-14); Neutrophils Absolute Auto 2500 /uL (1500-7000); Neutrophils Percent Auto 53.9 % (50-75); Platelet Count 255 X10^3/uL (150-400); Red Blood Cell Count 3.85 X10^6/uL (4.0-5.2); White Blood Cell Count 4.7 X10^3/uL (4.5-11.0)
[2024-02-01 15:58] LABS: Alanine Aminotransferase 13 IU/L (<35); Albumin Globulin Ratio 1.6 (1.0-2.8); Alkaline Phosphatase 84 U/L (38-126); Aspartate Aminotransferase 35 IU/L (14-36); BUN Creatinine Ratio 26.9 (6-22); Bilirubin Total 0.5 mg/dL (0.2-1.3); Blood Urea Nitrogen 14 mg/dL (7-17); Calcium 9.4 mg/dL (8.4-10.2); Carbon Dioxide 25 mmol/L (22-32); Chloride 104 mmol/L (98-107); Estimated Glomerular Filt Rate > 60 mL/min (>60); Globulin 2.5 g/dL (1.7-4.1); Glucose 84 mg/dL (80-110); HEMOLYSIS < 15 (0-50); Sodium 134 mmol/L (137-145); Total Protein 6.5 g/dL (6.3-8.2)
[2024-02-01 16:28] LABS: TSH w/ Reflex to FT4 1.71 uIU/mL (0.47-4.68)
[2024-02-01 19:55] LABS: Hep C Virus Ab w/Reflex Quant NEGATIVE s/c (NEGATIVE)
== END ==
PROVIDERS: Family Provider Family Medicine; PCP Family Medicine; Referring Provider Family Medicine; Visit Provider Family Medicine
DX: Z00.00 Encounter for general adult medical examination without abnormal findings (principal); R53.82 Chronic fatigue, unspecified; G47.33 Obstructive sleep apnea (adult) (pediatric); M81.0 Age-related osteoporosis without current pathological fracture
CPT/HCPCS: 36415; 80053; 84443; 85025; 86803

== ENCOUNTER → 2024-10-11 11:44 | Outpatient (CLI) | payer MEDICARE, OTHER, SELFPAY ==
--- NOTE | 2024-10-11 11:46 | DI.MG.S_ITS ---
BILATERAL DIGITAL SCREENING MAMMOGRAM 3D/2D WITH CAD: 10/11/2024 CLINICAL: Routine screening. Comparison is made to exams dated: 06/15/2023 mammogram, 11/19/2018 mammogram, and 12/17/2020 mammogram - [facility]. There are scattered areas of fibroglandular density (category b / 25%-50% glandular tissue). Current study was also evaluated with a Computer Aided Detection (CAD) system. No significant masses, calcifications, or other findings are seen in either breast. There has been no significant interval change. IMPRESSION: NEGATIVE There is no mammographic evidence of malignancy. A 1 year screening mammogram is recommended. Based on the Tyrer Cuzick model (a risk assessment model) the patient's lifetime risk is 3.6% and her 10 year risk is 2.7%. According to the ACR, ACS, and NCCN guidelines, an annual breast MRI exam along with mammogram is recommended if the patient's lifetime risk is 20% or greater. This exam was interpreted at Station ID: [id number]. NOTE: For mammograms, a report in lay terms will be sent to the patient. Approximately 15% of breast malignancies will not be visualized mammographically. In the management of a palpable breast mass, a negative mammogram must not discourage biopsy of a clinically suspicious lesion. Electronically Signed By: Christie hampton/yuliet:10/13/2024 08:45:28 letter sent: Normal Exam ACR BI-RADS Category 1: Negative
== END ==
PROVIDERS: Family Provider Family Medicine; PCP Family Medicine; Referring Provider Family Medicine; Visit Provider Family Medicine
DX: Z12.31 Encounter for screening mammogram for malignant neoplasm of breast (principal)
CPT/HCPCS: 77063; 77067